=== PATIENT | female | born 1980 | race Two or more races ===

== ENCOUNTER 2021-07-08 08:51 | Emergency (ER) | payer OTHER, SELFPAY ==
--- NOTE | ~2021-07-08 | XR_ITS ---
EXAMINATION: XR KNEE, RIGHT CLINICAL INFORMATION: Trauma, pain COMPARISON: None TECHNIQUE: Four views of the right knee. FINDINGS: There is no fracture, dislocation, or visible suprapatellar effusion. Hoffa's fat pad appears normal in the deep infrapatellar recess is preserved. There is no joint narrowing or erosive change or chondrocalcinosis. Normal bony mineral density. No periostitis. XR/XR knee RT 4V IMPRESSION: Normal right knee.
[2021-07-08 09:03] VITALS: BP 117/90; PULSE 83; RESP 18; TEMP 36.1; O2SAT 97; BMI 39.5
--- NOTE | 2021-07-08 09:14 | ED.LOWEXIN ---
HPI - Extremity Injury (Lower) General Chief Complaint: Extremity Injury, Lower Stated Complaint: R LEG INJ Time Seen by Provider: 07/08/21 09:14 Source: patient Mode of arrival: ambulatory Limitations: no limitations History of Present Illness HPI Narrative: 40 y/o female presenting to the ER from home with right knee pain x1 week. She reports injuring her knee last Thursday when she was dancing. She jumped and heard a popping sound. She went to urgent care where she was diagnosed with a knee sprain and given crutches. She had some improvement with rest and NSAIDs but when she went back to work 4 days ago she reinjured the knee again and twisted it. Pain has been worse since then. No ankle or hip injury. She is able to walk on it but with a limp. She feels like there is swelling in the knee but no swelling is present. MD complaint: knee injury Onset (ago): week(s) (1) Injury: Right: knee Type of Injury: unknown Place: home Severity: moderate Severity scale (1-10): 6 Relieving factors: NSAID Exacerbating factors: weight bearing, movement and palpation Context: jumping Associated symptoms: snap/pop sensation and able to partially bear weight Other symptoms: none Treatments prior to arrival: NSAIDS Related Data Previous Rx's Medication Instructions Recorded ibuprofen 600 mg tablet 600 mg PO Q8H PRN #20 tab 07/08/21 Allergies Allergy/AdvReac Type Severity Reaction Status Date / Time No Known Allergies Allergy Verified 07/08/21 09:06 Review of Systems Constitutional: Constitutional: Denies chills and Denies fever(s) Eyes: Eyes: Reports no additional eye complaints Cardiovascular: Cardiovascular: Denies chest pain and Denies dyspnea Respiratory: Respiratory: Denies dyspnea Musculoskeletal: Musculoskeletal: Reports abnormal gait, Reports arthralgias, Denies joint swelling, Reports limited range of motion, Denies numbness and Reports stiffness Integumentary/Breasts: Skin/Breast: Denies swelling and Denies erythema Neurologic: Reports abnormal gait and Denies numbness Psychiatric: Psychiatric: Reports anxiety PMFSH Past Medical History Attestation statement: The following information was validated with the patient. Medical History (Updated 07/08/21 @ 10:07 by MONY Mckinnon) No known health problems Social History Social History Advance Directives: Yes Advance Directives Information Provided: Yes Advance Directives on File: No Patient : No Physical Exam Vital Signs: Vital Signs: Last Vital Signs Temp 97.0 F 07/08/21 09:03 Pulse 83 07/08/21 09:03 Resp 18 07/08/21 09:03 BP 117/90 H 07/08/21 09:03 Pulse Ox 97 07/08/21 09:03 Body Mass Index 39.5 Const: General: cooperative, healthy appearing, comfortable and no acute distress Nutritional Appearance: overweight Orientation/consciousness: patient oriented x3 Limitations: no limitations HENMT: Head: Yes normal to inspection, Yes normocephalic and Yes atraumatic Ears: hearing grossly normal bilaterally and external ears normal General nose exam: Normal external nose present Face and sinus: Yes normal facial exam and Yes face symmetric Mouth: Normal oral and palatal mucosa present, lip normal and tongue normal Eyes: General: appearance normal, both eyes and all related structures Neck: Neck: Yes normal visual inspection Chest: Chest palpation & inspection: normal inspection of the chest Resp: Effort & Inspection: normal respiratory effort and able to speak in complete sentences Skin: General skin exam: no rashes or lesions noted Neuro: General: patient oriented x3, tone normal and moves all extremities Gait exam (Neuro): Antalgic gait present Extrem: Right upper extremity: normal to inspection and full ROM Left upper extremity: normal to inspection and full ROM Right lower extremity: normal to inspection and knee Details: normal to inspection, tenderness Location: of the medial joint line and of the lateral joint line, abnormal ROM Details: pain with active ROM during Details: in flexion and knee ligament exam normal; Negative for no swelling, no deformity and no unusual warmth Left lower extremity: normal to inspection Course Course Course Narrative: 40 y/o female presenting with right knee pain s/p injury x2 in the last 1 week with popping sensation. Ambulating with a limp. No swelling on exam, she is tender along the medial and lateral joint lines. No joint laxity appreciated. XR is normal. Will refer to ortho for further evaluation of possible menicsus vs ligamentous injury. She c/o popping sensation. Encouraged to use crutches and stay off her knee, continue to rest, ice and take NSAIDS. Work note provided. She will f/u with Ortho. Discharge Plan Discharge Clinical Impression: Knee sprain Qualifiers: Encounter type: initial encounter Involved ligament of knee: unspecified ligament Laterality: right Qualified Code(s): S83.91XA - Sprain of unspecified site of right knee, initial encounter Patient Disposition: Home, Self-Care Instructions: Knee Sprain (ED), Crutch Instructions (ED) Additional Instructions: Your x-ray today was normal. Rest you knee and elevate your leg under pillows when possible. Recommend LESTER wrap or knee brace for support and compression. Use ice several times per day for the next 48 hours. You may bear weight as tolerated. If pain is too severe, use crutches until better. Take prescribed ibuprofen and/or Tylenol as needed for pain. Follow up with Orthopedics for further evaluation of possible ligament or meniscus injury. Follow up with your doctor as needed. Prescriptions: New ibuprofen 600 mg tablet 600 mg PO Q8H PRN (Reason: pain) Qty: 20 RF: 0 Referrals: Jesus Frias MD [Physician] - 2 days (right knee pain, possible meniscus or ligament tear) Stand Alone Forms: Work/School Release
== END 2021-07-08 10:39 | disposition home or self-care (01) ==
PROVIDERS: Emergency Provider Emergency Medicine
DX: S83.91XA Sprain of unspecified site of right knee, initial encounter (principal); M25.561 Pain in right knee; X58.XXXA Exposure to other specified factors, initial encounter; Y93.9 Activity, unspecified; Y92.9 Unspecified place or not applicable; Y99.9 Unspecified external cause status; Z79.899 Other long term (current) drug therapy
CPT/HCPCS: 73564; 99283

== ENCOUNTER → 2021-07-16 11:22 | Outpatient (BNVA) | payer OTHER, SELFPAY | PROVIDERS: Visit Provider Physician Assistant | DX: S83.91XA Sprain of unspecified site of right knee, initial encounter (principal) | CPT/HCPCS: 99202 ==

== ENCOUNTER 2022-01-12 15:18 | Emergency (ER) | payer OTHER, SELFPAY ==
[2022-01-12 16:06] VITALS: BP 129/78; PULSE 75; RESP 18; TEMP 36.8; O2SAT 96; BMI 41.9
== END 2022-01-12 17:29 | disposition left against medical advice (07) ==
PROVIDERS: Emergency Provider Emergency Medicine
DX: R25.2 Cramp and spasm (principal); N93.9 Abnormal uterine and vaginal bleeding, unspecified
CPT/HCPCS: 99282

== ENCOUNTER 2022-02-05 12:40 | Emergency (ER) | payer OTHER, SELFPAY ==
--- NOTE | 2022-02-05 | ECG_ITS ---
Test Reason : SWELLING Blood Pressure : / mmHG Vent. Rate : 073 BPM Atrial Rate : 073 BPM P-R Int : 158 ms QRS Dur : 092 ms QT Int : 374 ms P-R-T Axes : 035 032 021 degrees QTc Int : 412 ms Normal sinus rhythm Normal ECG No previous ECGs available Referred By: Jose Espana Electronically Signed By:FAYE FENG
--- NOTE | ~2022-02-05 | US_ITS ---
EXAMINATION: US VENOUS ULTRASOUND WITH DOPPLER LOWER EXTREMITY, BILATERAL CLINICAL INFORMATION: Leg swelling COMPARISON: Right knee x-ray June 2021 TECHNIQUE: Ultrasound of the deep veins is performed from the hip to the calf with compression sonography and color and pulse Doppler assessment. Spectral analysis with color-flow imaging is performed. FINDINGS: RIGHT: There is normal venous compression and respiratory variation and augmented flow. The visualized common femoral vein, superficial femoral vein, profunda femoral vein, popliteal vein, and the posterior tibial veins no evidence of deep venous thrombosis. The right peroneal veins are not well visualized. There is no significant popliteal fossa cyst. There is a fluid collection superior to the patella probably representing a suprapatellar joint effusion. LEFT: There is normal venous compression and respiratory variation and augmented flow. The visualized common femoral vein, superficial femoral vein, profunda femoral vein, popliteal vein, and the trifurcation region shows no evidence of deep venous thrombosis. There is no significant popliteal fossa cyst. US/US venous duplex LE BI IMPRESSION: No DVT demonstrated in the bilateral lower extremity. The right peroneal veins in the calf are not well visualized. Right suprapatellar fluid collection probably representing a joint effusion.
[2022-02-05 12:58] VITALS: BP 140/77; PULSE 67; RESP 18; TEMP 36.4; O2SAT 100; BMI 42.0
[2022-02-05 13:17] LABS: MANUAL DIFF FLAG NO
[2022-02-05 13:28] LABS: INTERNATIONAL NORM RATIO 1.1 (0.9-1.1); Prothrombin Time 12.4 SEC (9.9-13.0)
[2022-02-05 13:29] LABS: Basophils Percent Auto 0.4 % (0-2); Eosinophils Absolute Auto 0.3 X10*3/uL (0.0-0.4); Eosinophils Percent Auto 3.2 % (0-4); Hematocrit 37.1 % (37.0-47.0); Hemoglobin 11.5 g/dl (12.0-16.0); Imm Gran Abs Auto 0.04 X10*3/uL (0.00-0.03); Imm Gran Pct Auto 0.4 % (0.0-0.4); Lymphocytes Absolute Auto 1.7 X10*3/uL (1.2-4.9); Lymphocytes Percent Auto 17.1 % (20-40); Mean Corpuscular Hemoglobin 26.6 pg (27.0-33.0); Mean Corpuscular Volume 85.7 fL (80.0-98.0); Mean Platelet Volume 10.6 fL (9.4-12.3); Monocytes Absolute Auto 0.5 X10*3/uL (0.1-1.2); Monocytes Percent Auto 5.5 % (2-11); Neutrophils Absolute Auto 7.2 x10*3/uL (2.0-8.3); Neutrophils Percent Auto 73.4 % (45-73); Platelet Count 328 X10*3/uL (160-400); Red Blood Count 4.33 X10*6/uL (4.20-5.50); Red Cell Distribution Width 16.1 % (11.0-16.0); White Blood Count 9.8 X10*3/uL (4.8-10.8)
[2022-02-05 13:42] LABS: Alanine Aminotransferase 16 U/L (0-31); Albumin Level 3.9 g/dL (3.5-5.0); Alkaline Phosphatase 80 U/L (39-117); Anion Gap 8 (12-20); Aspartate Amino Transferase 14 U/L (5-31); Bilirubin Direct 0.3 mg/dL (0.0-0.5); Bilirubin Total 0.8 mg/dL (0.0-1.0); Blood Urea Nitrogen 14 mg/dL (9-16); Calcium 8.9 mg/dL (8.4-10.2); Carbon Dioxide 27 mmol/L (22-29); Chloride 106 mmol/L (96-108); Creatinine Clr Calc Pharmacy 122.5; Estimated Glomerular Filt Rate > 60; Glucose Random 94 mg/dL (60-115); Potassium 4.3 mmol/L (3.3-5.1); Sodium 137 mmol/L (135-145); Total Protein 7.3 g/dL (6.5-8.0)
[2022-02-05 13:45] LABS: B Type Natriuretic Peptide 11 pg/mL (<100); Troponin-I High Sensitivity < 3.5 ng/L (<3.5-17.0)
--- NOTE | 2022-02-05 15:27 | ED.GENADULT ---
HPI - General Adult General Chief complaint: Extremity Problem Stated complaint: Bloodclot? Time Seen by Provider: 02/05/22 12:57 Source: patient Mode of arrival: ambulatory Limitations: no limitations History of Present Illness HPI narrative: Patient is a 41 year old female presenting to the emergency department today with right lower leg pain. Patient states that a few days ago, she had bilateral lower leg swelling but the left leg resolved on it's own. Patient states that the right leg is still swollen and somewhat sore. Patient states that she attempted to be seen at an urgent care when they sent her here to rule out a bloodclot. Patient denies any dizziness, lightheadedness, abdominal pain, nausea, vomiting, fever, chills, blurry vision, double vision, loss of vision, chest pain, difficulty breathing, shortness of breath, back pain, night sweats, pain with urination, increased urinary frequency, increased urinary urgency, blood in her urine or stool, syncope or a near syncopal episode, recent trauma or falls, bowel incontinence, bladder incontinence, bowel retention, bladder retention, or any other complaints at this time. Onset (ago): day(s) Location: lower extremity Radiation: non-radiation Severity: mild Severity scale (1-10): 2 Quality: dull Pain Consistency: intermittent Relieving factors: none Exacerbating factors: none Associated symptoms: denies other symptoms Treatments prior to arrival: none Related Data Previous Rx's Medication Instructions Recorded ibuprofen 600 mg tablet 600 mg PO Q8H PRN #20 tab 07/08/21 Allergies Allergy/AdvReac Type Severity Reaction Status Date / Time No Known Allergies Allergy Verified 07/08/21 09:06 Review of Systems Constitutional: Constitutional: Reports no additional constitutional complaints, Denies chills, Denies fever(s) and Denies night sweats Eyes: Eyes: Reports no additional eye complaints, Denies blurry vision, Denies change in vision, Denies diplopia, Denies eye discharge, Denies loss of vision and Denies eye pain ENT: Denies dizziness Cardiovascular: Cardiovascular: Reports no additional cardiovascular complaints, Denies chest pain, Denies lightheadedness, Denies Loss of Consciousness and Denies dyspnea Respiratory: Respiratory: Reports no additional respiratory complaints and Denies dyspnea Gastrointestinal: Gastrointestinal: Reports no additional gastrointestinal complaints, Denies abdominal pain, Denies melena, Denies hematochezia, Denies change in bowel habits and Denies change in stool character Genitourinary: Genitourinary: Denies hematuria, Denies urinary frequency, Denies dysuria, Denies urinary incontinence, Denies urinary hesitancy and Denies urinary urgency Musculoskeletal: Musculoskeletal: Reports no additional musculoskeletal complaints, Denies numbness and Denies tingling Comments: right lower leg swelling and intermittent soreness Neurologic: Denies dizziness, Denies loss of vision, Denies numbness and Denies tingling Psychiatric: Psychiatric: Reports no additional psychiatric complaints Endocrine: Endocrine: Reports no additional endocrine complaints Hematologic/Lymphatic: Hematologic/Lymphatic: Reports no additional hematologic/lymphatic complaints Allergic/Immunologic: Allergic/Immunologic: Reports no additional allergic/immunologic complaints [facility] Past Medical History Attestation statement: The following information was validated with the patient. 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 Physical Exam ED Vital Signs: Vital Signs - 24 hr 02/05/22 12:58 Temperature 97.6 F Pulse Rate 67 Respiratory Rate 18 Blood Pressure 140/77 H Pulse Oximetry 100 BMI result Body Mass Index 42.0 Const General: cooperative, no acute distress, alert and awake Nutritional Appearance: well nourished Orientation/consciousness: patient oriented x3 Limitations: no limitations HENMT Head: Yes normal to inspection and Yes atraumatic Ears: hearing grossly normal bilaterally and external ears normal General nose exam: Normal external nose present, no nasal discharge noted and no epistaxis Face and sinus: Yes normal facial exam, No abrasion and No laceration Mouth: Normal oral and palatal mucosa present, no drooling and no muffled voice Eyes General: appearance normal, both eyes and all related structures Periorbital: periorbital findings normal Eyelids: Yes eyelids normal Conjunctivae: conjunctivae normal Pupils: Equal, round and reactive pupils present EOM: EOMs intact bilaterally Neck Neck: Yes normal visual inspection, Yes full ROM and Yes no lymphadenopathy Chest Chest palpation & inspection: normal inspection of the chest Resp Effort & Inspection: normal respiratory effort and able to speak in complete sentences Auscultation: clear to auscultation bilaterally Cardio Rate: regular rate Rhythm: regular rhythm GI Inspection: Yes normal to inspection Neuro General: patient oriented x3 and moves all extremities Cranial nerves: Yes Equal, round and reactive pupils present Cognition (Neuro): normal cognition Motor exam (neuro): 5/5 motor strength present throughout Sensory Exam: Normal double simultaneous stimulation for sensation Coordination: [id number] test normal Extrem General: Yes normal to inspection, Yes full ROM and Yes capillary refill normal Psych Appearance: grossly normal Mental Status: mental status grossly normal Affect: normal affect Attitude: cooperative Thought process: Normal thought process present Thought content: Normal thought content present Insight: Good insight present (Psych) Medical Decision Making MDM Narrative Medical decision making narrative: Patient is a 41 year old female presenting to the emergency department today with right lower leg swelling and pain. Patient's physical exam was unremarkable. Patient's blood work was unremarkable. Patient's doppler US of the right lower leg showed no acute process. I explained my physical exam findings as well as all test results to the patient. I answered all questions asked by the patient. I stressed the importance of the patient taking her medication as prescribed. I stressed the importance of the patient following up with her primary care provider. I stressed the importance of the patient returning to the emergency department immediately if her symptoms were to worsen or if she were to develop any dizziness, shortness of breath, difficulty breathing, chest pain, blurry vision, loss of vision, nausea, vomiting, abdominal pain, fever, chills, back pain, or any other complaints. Patient verbalized agreement and understanding with this treatment plan and discharge. Differential Diagnosis Differential Diagnosis: DVT, right lower leg pain Medical Records Medical records reviewed: Yes I reviewed the patient's medical records. Lab Data Result diagrams: 02/05/22 13:07 02/05/22 13:07 Labs: Lab Results 02/05/22 02/05/22 02/05/22 Range/Units 13:07 13:07 13:07 WBC 9.8 (4.8-10.8) X10*3/uL RBC 4.33 (4.20-5.50) X10*6/uL Hgb 11.5 L (12.0-16.0) g/dl Hct 37.1 (37.0-47.0) % MCV 85.7 (80.0-98.0) fL MCH 26.6 L (27.0-33.0) pg MCHC 31.0 (31.0-35.0) g/dl RDW 16.1 H (11.0-16.0) % Plt Count 328 (160-400) X10*3/uL MPV 10.6 (9.4-12.3) fL Immature Gran % (Auto) 0.4 (0.0-0.4) % Neut % (Auto) 73.4 H (45-73) % Lymph % (Auto) 17.1 L (20-40) % [place] % (Auto) 5.5 (2-11) % Eos % (Auto) 3.2 (0-4) % Baso % (Auto) 0.4 (0-2) % Lymph # (Auto) 1.7 (1.2-4.9) X10*3/uL [place] # (Auto) 0.5 (0.1-1.2) X10*3/uL Eos # (Auto) 0.3 (0.0-0.4) X10*3/uL Baso # (Auto) 0.0 (0.0-0.2) X10*3/uL Abs Immat Gran (auto) 0.04 H (0.00-0.03) X10*3/uL Absolute Neuts (auto) 7.2 (2.0-8.3) x10*3/uL Absolute Nucleated RBC 0.000 (0.0-0.012) X10*3/uL Nucleated RBC % (auto) 0.0 (0.0-0.2) /100WBC PT 12.4 (9.9-13.0) SEC INR 1.1 (0.9-1.1) Sodium 137 (135-145) mmol/L Potassium 4.3 (3.3-5.1) mmol/L Chloride 106 (96-108) mmol/L Carbon Dioxide 27 (22-29) mmol/L Anion Gap 8 L (12-20) BUN 14 (9-16) mg/dL Creatinine 0.79 (0.5-1.4) mg/dL Estim Creat Clear Calc 122.5 Estimated GFR > 60 Random Glucose 94 (60-115) mg/dL Calcium 8.9 (8.4-10.2) mg/dL Total Bilirubin 0.8 (0.0-1.0) mg/dL Direct Bilirubin 0.3 (0.0-0.5) mg/dL AST 14 (5-31) U/L ALT 16 (0-31) U/L Alkaline Phosphatase 80 (39-117) U/L Troponin I High Sens (<3.5-17.0) ng/L B-Natriuretic Peptide (<100) pg/mL Total Protein 7.3 (6.5-8.0) g/dL Albumin 3.9 (3.5-5.0) g/dL 02/05/22 Range/Units 13:07 WBC (4.8-10.8) X10*3/uL RBC (4.20-5.50) X10*6/uL Hgb (12.0-16.0) g/dl Hct (37.0-47.0) % MCV (80.0-98.0) fL MCH (27.0-33.0) pg MCHC (31.0-35.0) g/dl RDW (11.0-16.0) % Plt Count (160-400) X10*3/uL MPV (9.4-12.3) fL Immature Gran % (Auto) (0.0-0.4) % Neut % (Auto) (45-73) % Lymph % (Auto) (20-40) % [place] % (Auto) (2-11) % Eos % (Auto) (0-4) % Baso % (Auto) (0-2) % Lymph # (Auto) (1.2-4.9) X10*3/uL [place] # (Auto) (0.1-1.2) X10*3/uL Eos # (Auto) (0.0-0.4) X10*3/uL Baso # (Auto) (0.0-0.2) X10*3/uL Abs Immat Gran (auto) (0.00-0.03) X10*3/uL Absolute Neuts (auto) (2.0-8.3) x10*3/uL Absolute Nucleated RBC (0.0-0.012) X10*3/uL Nucleated RBC % (auto) (0.0-0.2) /100WBC PT (9.9-13.0) SEC INR (0.9-1.1) Sodium (135-145) mmol/L Potassium (3.3-5.1) mmol/L Chloride (96-108) mmol/L Carbon Dioxide (22-29) mmol/L Anion Gap (12-20) BUN (9-16) mg/dL Creatinine (0.5-1.4) mg/dL Estim Creat Clear Calc Estimated GFR Random Glucose (60-115) mg/dL Calcium (8.4-10.2) mg/dL Total Bilirubin (0.0-1.0) mg/dL Direct Bilirubin (0.0-0.5) mg/dL AST (5-31) U/L ALT (0-31) U/L Alkaline Phosphatase (39-117) U/L Troponin I High Sens < 3.5 (<3.5-17.0) ng/L B-Natriuretic Peptide 11 (<100) pg/mL Total Protein (6.5-8.0) g/dL Albumin (3.5-5.0) g/dL Imaging Data Venous US: Attestation: I personally reviewed and interpreted this imaging study as follows: My impression: No acute process. Radiologist's impression: EXAMINATION:? US VENOUS ULTRASOUND WITH DOPPLER LOWER EXTREMITY, BILATERAL CLINICAL INFORMATION:? Leg swelling COMPARISON:? Right knee x-ray June 2021 TECHNIQUE: Ultrasound of the deep veins is performed from the hip to the calf with compression sonography and color and pulse Doppler assessment. Spectral analysis with color-flow imaging is performed. FINDINGS: RIGHT: There is normal venous compression and respiratory variation and augmented flow. The visualized common femoral vein, superficial femoral vein, profunda femoral vein, popliteal vein, and the posterior tibial veins no evidence of deep venous thrombosis.? The right peroneal veins are not well visualized. There is no significant popliteal fossa cyst. There is a fluid collection superior to the patella probably representing a suprapatellar joint effusion. LEFT: There is normal venous compression and respiratory variation and augmented flow. The visualized common femoral vein, superficial femoral vein, profunda femoral vein, popliteal vein, and the trifurcation region shows no evidence of deep venous thrombosis. ? There is no significant popliteal fossa cyst. US/US venous duplex LE BI IMPRESSION: No DVT demonstrated in the bilateral lower extremity. The right peroneal veins in the calf are not well visualized. Right suprapatellar fluid collection probably representing a joint effusion. Dictated By: Ly Bird MD Signed By: Electronically signed by Ly Bird MD 02/05/22 4070 Discharge Plan Discharge Clinical Impression: Acute leg pain Patient Disposition: Home, Self-Care Instructions: Knee Pain (ED) Additional Instructions: Follow up with your primary care provider. Return to the emergency department immediately if your symptoms worsen or if you develop any dizziness, shortness of breath, difficulty breathing, chest pain, blurry vision, loss of vision, nausea, vomiting, abdominal pain, fever, chills, back pain, or any other complaints. Prescriptions: No Action ibuprofen 600 mg tablet 600 mg PO Q8H PRN (Reason: pain) Qty: 20 0RF Referrals: Jasmyne Greene MD [Primary Care Provider] - 2 days Stand Alone Forms: Work/School Release Interventions: ED Discharge Assessment Last Done: 02/05/22 16:02 Discharge Date/Time: 02/05/22 16:04 Print Language: Lao
[2022-02-05] MEDS: Ketorolac Tromethamine 15 MG/ML VIAL IM (15:58)
== END 2022-02-05 16:04 | disposition home or self-care (01) ==
PROVIDERS: Physician Assistant; Emergency Provider Emergency Medicine; PCP Internal Medicine
DX: M79.604 Pain in right leg (principal); M79.89 Other specified soft tissue disorders; Z86.718 Personal history of other venous thrombosis and embolism
CPT/HCPCS: 36415; 80053; 82248; 83880; 84484; 85025; 85610; 93005; 93970; 96372; 99284; J1885

== ENCOUNTER → 2022-06-16 10:02 | Outpatient (BNVA) | payer OTHER, SELFPAY | PROVIDERS: PCP Internal Medicine; Visit Provider Physician Assistant Surgical | DX: E66.01 Morbid (severe) obesity due to excess calories (principal); Z68.41 Body mass index [BMI] 40.0-44.9, adult | CPT/HCPCS: 99202; 99212 ==

== ENCOUNTER 2022-08-04 08:08 | Outpatient (REF) | payer OTHER, SELFPAY ==
[2022-08-04 09:05] LABS: MANUAL DIFF FLAG NO
[2022-08-04 09:11] LABS: Basophils Absolute Auto 0.1 X10*3/uL (0.0-0.2); Basophils Percent Auto 0.7 % (0-2); Eosinophils Absolute Auto 0.2 X10*3/uL (0.0-0.4); Hematocrit 35.9 % (37.0-47.0); Hemoglobin 11.4 g/dl (12.0-16.0); Imm Gran Abs Auto 0.04 X10*3/uL (0.00-0.03); Imm Gran Pct Auto 0.4 % (0.0-0.4); Lymphocytes Absolute Auto 1.7 X10*3/uL (1.2-4.9); Lymphocytes Percent Auto 18.9 % (20-40); Mean Corpuscular HGB Conc 31.8 g/dl (31.0-35.0); Mean Corpuscular Hemoglobin 27.3 pg (27.0-33.0); Mean Corpuscular Volume 85.9 fL (80.0-98.0); Mean Platelet Volume 10.7 fL (9.4-12.3); Monocytes Absolute Auto 0.6 X10*3/uL (0.1-1.2); Monocytes Percent Auto 6.1 % (2-11); Neutrophils Absolute Auto 6.4 x10*3/uL (2.0-8.3); Neutrophils Percent Auto 71.9 % (45-73); Platelet Count 278 X10*3/uL (160-400); Red Blood Count 4.18 X10*6/uL (4.20-5.50); Red Cell Distribution Width 16.2 % (11.0-16.0)
[2022-08-04 09:19] LABS: Estimated Average Glucose 105 mg/dL; Hemoglobin A1c % 5.3 %
[2022-08-04 09:52] LABS: Alanine Aminotransferase 13 U/L (0-31); Albumin Level 3.9 g/dL (3.5-5.0); Alkaline Phosphatase 74 U/L (39-117); Anion Gap 14 (12-20); Aspartate Amino Transferase 12 U/L (5-31); Bilirubin Total 1.1 mg/dL (0.0-1.0); Blood Urea Nitrogen 12 mg/dL (9-16); C Reactive Protein 0.85 mg/dL (< or = 0.50); Calcium 9.2 mg/dL (8.4-10.2); Carbon Dioxide 25 mmol/L (22-29); Chloride 106 mmol/L (96-108); Cholesterol 119 mg/dL; Estimated Glomerular Filt Rate > 60; Glucose Random 101 mg/dL (60-115); HDL Cholesterol 32 mg/dL; Iron 59 mcg/dL (30-160); LDL Cholesterol Calculated 74 mg/dl; Percent Iron Saturation 16 % (15-50); Potassium 4.1 mmol/L (3.3-5.1); Sodium 141 mmol/L (135-145); Total Iron Binding Capacity 377 mcg/dL (228-428); Total Protein 6.9 g/dL (6.5-8.0); Triglycerides 65 mg/dL; Unsaturated Iron Binding 318 ug/dL
[2022-08-04 10:14] LABS: Ferritin 25 ng/mL (10-250); Insulin 14 uU/mL (2-29); Vitamin D 25-OH Total 15.7 ng/mL (>30)
[2022-08-04 11:12] LABS: Vitamin B12 322 pg/mL (200-900)
[2022-08-05 11:02] LABS: PTHI 69 pg/mL (16-77)
[2022-08-06 14:55] LABS: H Pylori Breath Test Negative (Negative)
[2022-08-08 01:47] LABS: Zinc 63 mcg/dL (60-130)
[2022-08-08 10:26] LABS: Vitamin A 32 mcg/dL (38-98)
[2022-08-09 13:11] LABS: Vitamin B1 9 nmol/L (8-30)
== END 2022-08-04 08:09 | disposition home or self-care (01) ==
LOC: HO.LAB 08:08
PROVIDERS: Visit Provider Physician Assistant Surgical
DX: Z01.818 Encounter for other preprocedural examination (principal); E66.01 Morbid (severe) obesity due to excess calories
CPT/HCPCS: 36415; 80053; 80061; 82306; 82607; 82728; 82746; 83013; 83036; 83525; 83540; 83970; 84425; 84443; 84590; 84630; 85025; 86140; 99211

== ENCOUNTER → 2022-08-08 15:00 | Outpatient (BNVA) | payer OTHER, SELFPAY | PROVIDERS: Visit Provider Physician Assistant Surgical | DX: E66.01 Morbid (severe) obesity due to excess calories (principal); Z68.41 Body mass index [BMI] 40.0-44.9, adult | CPT/HCPCS: 99212 ==

== ENCOUNTER 2022-08-14 12:06 | Outpatient (REF) | payer OTHER, SELFPAY | END 2022-08-14 12:07 | disposition home or self-care (01) | LOC: HO.US 12:06 | PROVIDERS: Visit Provider Physician Assistant Surgical | DX: Z13.89 Encounter for screening for other disorder (principal) ==

== ENCOUNTER 2024-10-04 06:43 | Day surgery (SDC) | payer OTHER, SELFPAY ==
[2024-10-04] VITALS (9 sets, daily range): BP systolic 123–137; BP diastolic 68–85; PULSE 69–83; RESP 14–20; TEMP 36.1–37; O2SAT 93–97; BMI 44.5
--- NOTE | ~2024-10-04 | CT_ITS ---
EXAMINATION: CT ABDOMEN AND PELVIS WITHOUT CONTRAST CLINICAL INFORMATION: Left flank pain. COMPARISON: None currently available for technical reasons. TECHNIQUE: Multidetector volumetric imaging was performed from the superior aspect of the liver through the pubic symphysis. Sagittal and coronal reformatted images were obtained on the technologist's workstation. This CT examination was performed using dose optimization techniques as appropriate, variously including the following: *Automated exposure control *Adjustment of mA and/or kV according to patient size (this includes techniques or standardized protocols for targeted exams where dose is matched to indication/reason for exam; i.e. extremities or head) *Use of iterative reconstruction technique DLP: 1143 mGy-cm FINDINGS: LUNG BASES: Left basilar airspace disease associated with large hiatus hernia, not further characterized. No pleural effusion. Heart upper normal in size. No pericardial effusion. LIVER, GALLBLADDER, AND BILIARY TREE: The liver appears unremarkable in size, shape, and attenuation. No focal hepatic lesion or biliary ductal dilatation is appreciated. Borderline mildly distended gallbladder measuring 4.3 cm in diameter. No radiopaque gallstone identified. No evidence of gallbladder wall thickening or pericholecystic inflammatory change. PANCREAS: Unremarkable SPLEEN: Unremarkable ADRENAL GLANDS: Unremarkable KIDNEYS AND URETERS: 0.5 cm left UVJ stone with associated moderate left hydronephrosis and hydroureter to this level. Associated perinephric and periureteral stranding. Multiple, 0.3 cm or less, nonobstructing right renal collecting system stones. No evidence of hydronephrosis or hydroureter on the right. The kidneys appear unremarkable in size, shape, and attenuation. BLADDER: Poorly distended, therefore suboptimally evaluated. Grossly unremarkable. GASTROINTESTINAL TRACT/ABDOMINAL WALL: Large hiatus hernia containing almost all the stomach and a portion of the pancreas. Suspect anterior abdominal wall surgical mesh. Approximately 3.8 cm mid lower anterior abdominal wall hernia containing fat and a small amount of fluid. Approximately 4 cm left groin hernia containing indurated fat, possibly a femoral hernia. Small bowel and colon appear unremarkable. No diverticulosis. Normal-appearing distal ileum and vermiform appendix. LYMPH NODES: No evidence of adenopathy by size criteria. VASCULAR: Unremarkable PELVIC VISCERA: Status post hysterectomy. OSSEOUS STRUCTURES: Unremarkable CT/CT abdomen pelvis wo IV con IMPRESSION: 0.5 cm left UVJ stone with associated moderate left hydronephrosis and hydroureter to this level. Associated perinephric and periureteral stranding. Large hiatus hernia containing almost all the stomach and a portion of the pancreas. Suspect anterior abdominal wall surgical mesh. Approximately 3.8 cm mid lower anterior abdominal wall hernia containing fat and a small amount of fluid. Approximately 4 cm left groin hernia containing indurated fat, possibly a femoral hernia. Additional findings as above. Electronically signed by: Adam Bales MD 10/04/2024 11:46 AM SACHIN
[2024-10-04 07:18] LABS: MANUAL DIFF FLAG NO
[2024-10-04 07:22] LABS: Basophils Absolute Auto 0.1 X10*3/uL (0.0-0.2); Basophils Percent Auto 0.5 % (0-2); Eosinophils Absolute Auto 0.2 X10*3/uL (0.0-0.4); Eosinophils Percent Auto 1.7 % (0-4); Hematocrit 39.6 % (37.0-47.0); Hemoglobin 12.6 g/dl (12.0-16.0); Imm Gran Abs Auto 0.08 X10*3/uL (0.00-0.03); Imm Gran Pct Auto 0.8 % (0.0-0.4); Lymphocytes Percent Auto 19.5 % (20-40); Mean Corpuscular HGB Conc 31.8 g/dl (31.0-35.0); Mean Corpuscular Hemoglobin 26.1 pg (27.0-33.0); Mean Corpuscular Volume 82.2 fL (80.0-98.0); Mean Platelet Volume 10.6 fL (9.4-12.3); Monocytes Absolute Auto 0.7 X10*3/uL (0.1-1.2); Monocytes Percent Auto 6.7 % (2-11); Neutrophils Absolute Auto 7.3 x10*3/uL (2.0-8.3); Neutrophils Percent Auto 70.8 % (45-73); Platelet Count 331 X10*3/uL (160-400); Red Blood Count 4.82 X10*6/uL (4.20-5.50); Red Cell Distribution Width 17.7 % (11.0-16.0); White Blood Count 10.3 X10*3/uL (4.8-10.8)
[2024-10-04 07:22] LABS: Appearance Urine Cloudy; Color Urine Yellow; Glucose Urine UA Negative (Negative); Leukocyte Esterase Urine Negative (Negative); Nitrite Urine Negative (Negative); Specific Gravity - Urine 1.025 (1.005-1.025); Urine Blood Negative (Negative); Urine Ketones Negative (Negative); Urine Protein Trace mg/dL (Neg-Trace)
[2024-10-04 07:25] LABS: Bacteria Urine 3+ (None Seen); Hyaline Casts Urine 0-2 /LPF (0-2); RBC Urine 0-2 /HPF (0-2); Squamous Epithelial Cell Urine >20 /HPF (0-2); WBC Urine 0-5 /HPF (0-5)
[2024-10-04 07:35] LABS: Alanine Aminotransferase 19 U/L (0-31); Alkaline Phosphatase 87 U/L (39-117); Anion Gap 15 (12-20); Aspartate Amino Transferase 21 U/L (5-31); Bilirubin Total 0.9 mg/dL (0.0-1.0); Blood Urea Nitrogen 14 mg/dL (9-16); Calcium 9.3 mg/dL (8.4-10.2); Carbon Dioxide 23 mmol/L (22-29); Chloride 106 mmol/L (96-108); Estimated Glomerular Filt Rate > 60; Glucose Random 113 mg/dL (60-115); Lipase 31 U/L (8-78); Potassium 3.8 mmol/L (3.3-5.1); Sodium 140 mmol/L (135-145); Total Protein 7.6 g/dL (6.5-8.0)
--- NOTE | 2024-10-04 08:43 | ED_ITS ---
HPI - Abdominal Pain General Chief Complaint: Abdominal Pain Stated Complaint: L flank pain Time Seen by Provider: 10/04/24 08:42 Source: patient and RN notes reviewed Mode of arrival: ambulatory Limitations: no limitations History of Present Illness ED Provider: Latanya Scott PA-C HPI narrative: This is a 43-year-old female, with a history of total hysterectomy with left ovarian removal in June and multiple hernia repair at [facility], who presents emergency department with complaints of left sided flank pain which started at 4:00 a.m. this morning. Patient states that she woke up in the middle of the night to urinate, and states that after urination she developed this severe left-sided flank pain. She states that the pain has been coming in waves, states that it waxes and wanes in severity. Patient denies history of similar symptoms in the past. She denies any dysuria, hematuria, urinary frequency or urgency. Patient denies any fevers, chills, chest pain, shortness of breath, abdominal pain, nausea, vomiting. She does report that over the last 2 weeks she has had diarrhea. No bloody or black stool. No vaginal discharge or bleeding. Denies any other complaints or concerns at this time. MD elicited complaint: flank pain Location: L flank Severity: moderate Quality: cramping and aching Radiation: none Migration to: no migration Exacerbating factors: nothing and movement Relieving factors: rest Associated symptoms: denies other symptoms Related Data Home Medications ?Medication ?Instructions ?Recorded ?Confirmed Pepcid 20 mg PO DAILY 10/04/24 10/04/24 Previous Rx's ?Medication ?Instructions ?Recorded ibuprofen 600 mg tablet 600 mg PO Q8H PRN pain #20 tabs 07/08/21 Allergies Allergy/AdvReac Type Severity Reaction Status Date / Time No Known Allergies Allergy Verified 10/04/24 14:21 Review of Systems Review of Systems Yes all other systems are reviewed and are negative Constitutional: Reports as per [facility] Past Medical History Attestation statement: The following information was validated with the patient. Medical History Hernia No known health problems Surgical History Hx of hernia repair Family History Family History Mother Asthma Fibromyalgia Father No problems noted. Son No problems noted. Daughter No problems noted. 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 Physical Exam ED Vital Signs: Vital Signs - 24 hr 10/04/24 06:52 10/04/24 12:48 Temperature 98.6 F 98.1 F Pulse Rate 80 83 Respiratory Rate 20 20 Blood Pressure 133/85 131/81 Pulse Oximetry 96 96 Oxygen Delivery Method Room Air Room Air BMI result Body Mass Index 44.5 Const General: cooperative, comfortable and no acute distress Orientation/consciousness: patient oriented x3 Limitations: no limitations HENMT Head: Yes normal to inspection, Yes normocephalic and Yes atraumatic Ears: hearing grossly normal bilaterally General nose exam: Normal external nose present Face and sinus: Yes normal facial exam Mouth: Normal oral and palatal mucosa present, oropharynx normal and moist mucous membranes Throat: Yes posterior oropharynx normal Eyes General: appearance normal, both eyes and all related structures Eyelids: Yes eyelids normal Conjunctivae: conjunctivae normal Sclerae: sclerae normal Pupils: Equal, round and reactive pupils present EOM: EOMs intact bilaterally Neck Neck: Yes normal visual inspection, Yes full ROM and Yes no lymphadenopathy Lymphatic: no lymphadenopathy noted Chest Chest palpation & inspection: normal inspection of the chest Resp Effort & Inspection: normal respiratory effort and able to speak in complete sentences Auscultation: clear to auscultation bilaterally, no crackles, no rales, no rhonchi and no wheezes Cardio Rate: regular rate Rhythm: regular rhythm Heart sounds: S1 normal heart sound present and S2 normal heart sound present GI Other: Abdomen is soft, nontender, nondistended. Inspection: Yes normal to inspection General: Yes no CVA tenderness Back/Spine/Pelvis Other: Patient with tenderness palpation along the left flank. Back: no CVA tenderness Skin General skin exam: no rashes or lesions noted Trauma: no lacerations or abrasions Wounds: no wounds Neuro General: patient oriented x3 and moves all extremities Cranial nerves: Yes Equal, round and reactive pupils present Extrem General: Yes normal to inspection Right upper extremity: normal to inspection Left upper extremity: normal to inspection Right lower extremity: normal to inspection Left lower extremity: normal to inspection Course Reevaluation(s) Reevaluation #1: CT scan still pending, patient reports that the Toradol did help with her pain however states that the pain is increasing again. Morphine 4 mg IV ordered. Time: 11:21 Reevaluation #2: CT scan returns, revealing a 0.5 cm left UVJ stone with associated moderate left hydronephrosis and hydroureter to this level. There is associated parents nephric and periureteral stranding. Also a large hiatus hernia containing almost all of the stomach and a portion of the pancreas. Suspect anterior abdominal wall surgical mesh approximately 3.8 cm mid lower anterior wall hernia containing fat and a small amount of fluid. Approximately 4 cm left groin hernia containing indurated fat possibly a femoral hernia. Discussed with Dr. Carey, hernias a chronic issue, does not need an intervention today. Dr. Winter made aware Time: 11:55 Reevaluation #3: Patient with intractable pain, discussed case with Dr. Winter, who will bring patient lithotripsy. Patient is agreeable for procedure. Patient brought to the OR Time: 14:18 Medical Decision Making Medical Decision Making [facility] Narrative: This is a 43-year-old female who presents emergency department for evaluation of left-sided flank pain which started this morning. On arrival, vital signs within normal limits. Patient has no CVA tenderness however she does have tenderness palpation along the left flank. Abdomen is soft and nontender. Differential diagnoses include shoots cystitis, obstructive uropathy, gastritis, gastroenteritis. Plan: Labs, UA, CT abdomen and pelvis Differential Diagnosis Differential Diagnoses: The differential diagnosis associated with the presentation includes See above Admission/Observation Consideration of admission/observation: Escalation of care including admission/observation considered Consult Healthcare Provider Management of the patient was discussed with: Package Line Relief Operator Dr. Winter, urology Lab Data [facility] Lab Attestation statement: I reviewed the patient's lab results. No leukocytosis, H&H within normal limits, chemistry with no evidence of PRISCILLA. Beta quant less than 2, urine 3+ bacteria. Likely contaminated. Does not appear to be infected. 10/04/24 07:11 10/04/24 07:11 Labs: Lab Results 10/04/24 10/04/24 Range/Units 07:11 07:15 WBC 10.3 (4.8-10.8) X10*3/uL RBC 4.82 (4.20-5.50) X10*6/uL Hgb 12.6 (12.0-16.0) g/dl Hct 39.6 (37.0-47.0) % MCV 82.2 (80.0-98.0) fL MCH 26.1 L (27.0-33.0) pg MCHC 31.8 (31.0-35.0) g/dl RDW 17.7 H (11.0-16.0) % Plt Count 331 (160-400) X10*3/uL MPV 10.6 (9.4-12.3) fL Immature Gran % (Auto) 0.8 H (0.0-0.4) % Neut % (Auto) 70.8 (45-73) % Lymph % (Auto) 19.5 L (20-40) % [place] % (Auto) 6.7 (2-11) % Eos % (Auto) 1.7 (0-4) % Baso % (Auto) 0.5 (0-2) % Lymph # (Auto) 2.0 (1.2-4.9) X10*3/uL [place] # (Auto) 0.7 (0.1-1.2) X10*3/uL Eos # (Auto) 0.2 (0.0-0.4) X10*3/uL Baso # (Auto) 0.1 (0.0-0.2) X10*3/uL Abs Immat Gran (auto) 0.08 H (0.00-0.03) X10*3/uL Absolute Neuts (auto) 7.3 (2.0-8.3) x10*3/uL Absolute Nucleated RBC 0.000 (0.0-0.012) X10*3/uL Nucleated RBC % (auto) 0.0 (0.0-0.2) /100WBC Sodium 140 (135-145) mmol/L Potassium 3.8 (3.3-5.1) mmol/L Chloride 106 (96-108) mmol/L Carbon Dioxide 23 (22-29) mmol/L Anion Gap 15 (12-20) BUN 14 (9-16) mg/dL Creatinine 0.99 (0.5-1.4) mg/dL Estim Creat Clear Calc 99.0 Estimated GFR > 60 Random Glucose 113 (60-115) mg/dL Calcium 9.3 (8.4-10.2) mg/dL Total Bilirubin 0.9 (0.0-1.0) mg/dL AST 21 (5-31) U/L ALT 19 (0-31) U/L Alkaline Phosphatase 87 (39-117) U/L Total Protein 7.6 (6.5-8.0) g/dL Albumin 4.0 (3.5-5.0) g/dL Lipase 31 (8-78) U/L Beta HCG, Quant < 2 mIU/mL Urine Color Yellow Urine Appearance Cloudy Urine pH 5.0 (5.0-9.0) Ur Specific [place] 1.025 (1.005-1.025) Urine Protein Trace (Neg-Trace) mg/dL Urine Glucose (UA) Negative (Negative) mg/dL Urine Ketones Negative (Negative) mg/dL Urine Blood Negative (Negative) Urine Nitrite Negative (Negative) Ur Leukocyte Esterase Negative (Negative) Urine RBC 0-2 (0-2) /HPF Urine WBC 0-5 (0-5) /HPF Ur Squamous Epith Cells >20 (0-2) /HPF Urine Bacteria 3+ (None Seen) Hyaline Casts 0-2 (0-2) /LPF Radiology Impression Discussion of test interpretation with radiology: I have reviewed the radiologist's reading. Radiologist Impression: CT/CT abdomen pelvis wo IV con IMPRESSION: 0.5 cm left UVJ stone with associated moderate left hydronephrosis and hydroureter to this level. Associated perinephric and periureteral stranding. Large hiatus hernia containing almost all the stomach and a portion of the pancreas. Suspect anterior abdominal wall surgical mesh. Approximately 3.8 cm mid lower anterior abdominal wall hernia containing fat and a small amount of fluid. Approximately 4 cm left groin hernia containing indurated fat, possibly a femoral hernia. Additional findings as above. Electronically signed by: Adam Bales MD 10/04/2024 11:46 AM [facility] [place] Dictated By: Adam Bales Medications Administered Discontinued Medications Generic Name Dose Route Start Last Admin Trade Name Freq PRN Reason Stop Dose Admin Ceftriaxone Sodium 1 gm 10/04/24 08:49 10/04/24 10:50 Ceftriaxone Sodium 1 Gm Vial IVPUSH 10/04/24 08:50 1 gm ONCE ONE Administration Hydromorphone HCl 0.5 mg 10/04/24 13:14 10/04/24 13:58 Hydromorphone Hcl 0.5 Mg/0.5 Ml Syringe IVPUSH 10/04/24 13:15 0.5 mg ONCE ONE Administration Protocol Sodium Chloride 1,000 mls @ 999 mls/hr 10/04/24 08:52 10/04/24 12:23 Ns IV 10/04/24 09:52 Infused .Q1H1M ONE Infusion Ketorolac Tromethamine 30 mg 10/04/24 08:49 10/04/24 09:10 Ketorolac Tromethamine 30 Mg/Ml Vial IVPUSH 10/04/24 08:50 30 mg ONCE ONE Administration Morphine Sulfate 4 mg 10/04/24 11:20 10/04/24 11:58 Morphine Sulfate 4 Mg/Ml Cartridge IVPUSH 10/04/24 11:21 4 mg ONCE ONE Administration Protocol Ondansetron HCl 4 mg 10/04/24 08:49 10/04/24 09:10 Ondansetron Hcl 4 Mg/2 Ml Vial IVPUSH 10/04/24 08:50 4 mg ONCE ONE Administration Prednisone 20 mg 10/04/24 13:14 10/04/24 14:10 Prednisone 20 Mg Tablet PO 10/04/24 13:15 Not Given ONCE ONE Tamsulosin HCl 0.4 mg 10/04/24 13:14 10/04/24 14:10 Tamsulosin Hcl 0.4 Mg Capsule PO 10/04/24 13:15 Not Given ONCE ONE Discharge Plan Discharge Clinical Impression: Urinary tract obstruction by kidney stone Patient Disposition: Admitted As Inpatient
[2024-10-04] MEDS: Ketorolac Tromethamine 30 MG/ML VIAL IVPUSH (09:10)
[2024-10-04] MEDS: ondansetron HCL 4 MG/2 ML VIAL IVPUSH (09:10)
[2024-10-04] MEDS: 0.9 % Sodium Chloride 1,000 ML 999 ML IV (09:10)
[2024-10-04 09:13] LABS: HCG Quantitative < 2 mIU/mL
[2024-10-04] MEDS: cefTRIAXone sodium 1 GM VIAL IVPUSH (10:50)
--- NOTE | 2024-10-04 10:50 | PC.NURSE ---
d/t pt difficult IV stick, ok'ed adminstration of abx without second bld cx being obtained.
--- NOTE | 2024-10-04 11:28 | MHC.EDTECH ---
Second set of cultures canceled per nurse Pierce.
[2024-10-04] MEDS: Morphine Sulfate 4 MG/ML CARTRIDGE IVPUSH (11:58)
[2024-10-04] MEDS: HYDROmorphone HCl 0.5 MG/0.5 ML SYRINGE IVPUSH (13:58)
--- NOTE | 2024-10-04 14:21 | PM.UROCN ---
History of Present Illness Consult details Consult date: 10/04/24 Narrative: 43-year-old female, with a history of total hysterectomy with left ovarian removal in June and multiple hernia repair at [facility], who presents emergency department with complaints of left sided flank pain which started at 4:00 a.m. this morning. Patient denies history of similar symptoms in the past. She denies any dysuria, hematuria, urinary frequency or urgency. Patient denies any fevers, chills, chest pain, shortness of breath, abdominal pain, nausea, vomiting. She does report that over the last 2 weeks she has had diarrhea. CTAP- left 5 mm UVJ stone. Review of Systems Review of Systems: Yes all other systems are reviewed and are negative Constitutional: Constitutional: Reports no additional constitutional complaints Eyes: Eyes: Reports no additional eye complaints ENT: Reports system reviewed and no additional complaints, except as documented Cardiovascular: Cardiovascular: Reports no additional cardiovascular complaints Respiratory: Respiratory: Reports no additional respiratory complaints Gastrointestinal: Gastrointestinal: Reports no additional gastrointestinal complaints Genitourinary: Genitourinary: Reports as per HPI Musculoskeletal: Musculoskeletal: Reports no additional musculoskeletal complaints Integumentary/Breasts: Skin/Breast: Reports system reviewed and no additional complaints, except as docu Neurologic: Reports system reviewed and no additional complaints, except as documented Psychiatric: Psychiatric: Reports no additional psychiatric complaints Endocrine: Endocrine: Reports no additional endocrine complaints Hematologic/Lymphatic: Hematologic/Lymphatic: Reports no additional hematologic/lymphatic complaints Allergic/Immunologic: Allergic/Immunologic: Reports no additional allergic/immunologic complaints PMFSH Past Medical History Medical History Hernia No known health problems Family History Family History Mother Asthma Fibromyalgia Father No problems noted. Son No problems noted. Daughter No problems noted. 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 Meds Allergies Allergy/AdvReac Type Severity Reaction Status Date / Time No Known Allergies Allergy Verified 10/04/24 14:21 Home Medications ?Medication ?Instructions ?Recorded ?Confirmed ?Last Taken ?Type Pepcid 20 mg PO DAILY 10/04/24 10/04/24 10/03/24 History Physical Exam Vital Signs: Vital Signs: Last Vital Signs Temp 98.1 F 10/04/24 12:48 Pulse 83 10/04/24 12:48 Resp 20 10/04/24 12:48 BP 131/81 10/04/24 12:48 Pulse Ox 96 10/04/24 12:48 O2 Del Method Room Air 10/04/24 12:48 BMI result Body Mass Index 44.5 : General: Yes CVA tenderness on the left Back/Spine/Pelvis: Back: CVA tenderness Results Labs 10/04/24 07:11 10/04/24 07:11 Labs: Abnormal lab results 10/04/24 Range/Units 07:11 MCH 26.1 L (27.0-33.0) pg RDW 17.7 H (11.0-16.0) % Immature Gran % (Auto) 0.8 H (0.0-0.4) % Lymph % (Auto) 19.5 L (20-40) % Abs Immat Gran (auto) 0.08 H (0.00-0.03) X10*3/uL Short CBC 10/04/24 Range/Units 07:11 WBC 10.3 (4.8-10.8) X10*3/uL Hgb 12.6 (12.0-16.0) g/dl Hct 39.6 (37.0-47.0) % Plt Count 331 (160-400) X10*3/uL BMP 10/04/24 07:11 Sodium 140 Potassium 3.8 Chloride 106 Carbon Dioxide 23 BUN 14 Creatinine 0.99 Calcium 9.3 Liver Function 10/04/24 Range/Units 07:11 Total Bilirubin 0.9 (0.0-1.0) mg/dL AST 21 (5-31) U/L ALT 19 (0-31) U/L Alkaline Phosphatase 87 (39-117) U/L Albumin 4.0 (3.5-5.0) g/dL Urine 10/04/24 Range/Units 07:15 Urine Color Yellow Urine Appearance Cloudy Urine pH 5.0 (5.0-9.0) Ur Specific [place] 1.025 (1.005-1.025) Urine Protein Trace (Neg-Trace) mg/dL Urine Glucose (UA) Negative (Negative) mg/dL All other labs normal. Imaging Additional studies: Date of Service: 10/04/24 CT ABDOMEN AND PELVIS WITHOUT CONTRAST CLINICAL INFORMATION: Left flank pain. COMPARISON: None currently available for technical reasons. TECHNIQUE: Multidetector volumetric imaging was performed from the superior aspect of the liver through the pubic symphysis. Sagittal and coronal reformatted images were obtained on the technologist's workstation. This CT examination was performed using dose optimization techniques as appropriate, variously including the following: *Automated exposure control *Adjustment of mA and/or kV according to patient size (this includes techniques or standardized protocols for targeted exams where dose is matched to indication/reason for exam; i.e. extremities or head) *Use of iterative reconstruction technique DLP: 1143 mGy-cm FINDINGS: LUNG BASES: Left basilar airspace disease associated with large hiatus hernia, not further characterized. No pleural effusion. Heart upper normal in size. No pericardial effusion. LIVER, GALLBLADDER, AND BILIARY TREE: The liver appears unremarkable in size, shape, and attenuation. No focal hepatic lesion or biliary ductal dilatation is appreciated. Borderline mildly distended gallbladder measuring 4.3 cm in diameter. No radiopaque gallstone identified. No evidence of gallbladder wall thickening or pericholecystic inflammatory change. PANCREAS: Unremarkable SPLEEN: Unremarkable ADRENAL GLANDS: Unremarkable KIDNEYS AND URETERS: 0.5 cm left UVJ stone with associated moderate left hydronephrosis and hydroureter to this level. Associated perinephric and periureteral stranding. Multiple, 0.3 cm or less, nonobstructing right renal collecting system stones. No evidence of hydronephrosis or hydroureter on the right. The kidneys appear unremarkable in size, shape, and attenuation. BLADDER: Poorly distended, therefore suboptimally evaluated. Grossly unremarkable. GASTROINTESTINAL TRACT/ABDOMINAL WALL: Large hiatus hernia containing almost all the stomach and a portion of the pancreas. Suspect anterior abdominal wall surgical mesh. Approximately 3.8 cm mid lower anterior abdominal wall hernia containing fat and a small amount of fluid. Approximately 4 cm left groin hernia containing indurated fat, possibly a femoral hernia. Small bowel and colon appear unremarkable. No diverticulosis. Normal-appearing distal ileum and vermiform appendix. LYMPH NODES: No evidence of adenopathy by size criteria. VASCULAR: Unremarkable PELVIC VISCERA: Status post hysterectomy. OSSEOUS STRUCTURES: Unremarkable IMPRESSION: 0.5 cm left UVJ stone with associated moderate left hydronephrosis and hydroureter to this level. Associated perinephric and periureteral stranding. Large hiatus hernia containing almost all the stomach and a portion of the pancreas. Suspect anterior abdominal wall surgical mesh. Approximately 3.8 cm mid lower anterior abdominal wall hernia containing fat and a small amount of fluid. Approximately 4 cm left groin hernia containing indurated fat, possibly a femoral hernia. Assessment and Plan (1) Urinary tract obstruction by kidney stone: Status: Acute (2) Morbid obesity: Status: Acute (3) Hydronephrosis, left: Status: Acute Plan Plan for Cystoscopy, left ureteroscopy, possible laser lithotripsy, possible ureteral stent. Risks discussed included but not limited to, possible need to repeat procedure if stone is not completely fragmented, Irritative voiding symptoms, bladder spasms, urgency, blood in urine. Procedures Date of Service Date of Service: 10/04/24
--- NOTE | 2024-10-04 14:35 | HO.ANESPROP2 ---
HPI - Anesthesia Eval Consult details Narrative: 43 yo F presenting for left cystoscopy PMFSH Active Problems Active Problems: All Active Problems Hydronephrosis, left (Acute) Urinary tract obstruction by kidney stone (Acute) Morbid obesity (Acute) Right knee sprain (Acute) Past Medical History Medical History Hernia No known health problems Family History Family History Mother Asthma Fibromyalgia Father No problems noted. Son No problems noted. Daughter No problems noted. 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 Meds Allergies Allergy/AdvReac Type Severity Reaction Status Date / Time No Known Allergies Allergy Verified 10/04/24 14:21 Active Medications: Current Medications Cefazolin Sodium/Dextrose (Ancef) 2 gm in 50 mls @ 100 mls/hr IV PREOP ONE Stop: 10/04/24 14:55 Home Medications ?Medication ?Instructions ?Recorded ?Confirmed ?Last Taken ?Type Pepcid 20 mg PO DAILY 10/04/24 10/04/24 10/03/24 History Exam Exam Date and Time: 10/04/24 1430 Height,Weight and Vital Signs: Height 5 ft 6 in Weight 125.2 kg Last Vital Signs Temp 98.0 F 10/04/24 14:26 Pulse 81 10/04/24 14:26 Resp 16 10/04/24 14:26 BP 128/68 10/04/24 14:26 Pulse Ox 97 10/04/24 14:26 O2 Del Method Room Air 10/04/24 14:26 Pertinent Lab Results Pertinent Lab Results: Laboratory Tests 10/04/24 10/04/24 07:11 07:15 WBC 10.3 RBC 4.82 Hgb 12.6 Hct 39.6 MCV 82.2 MCH 26.1 L MCHC 31.8 RDW 17.7 H Plt Count 331 MPV 10.6 Immature Gran % (Auto) 0.8 H Neut % (Auto) 70.8 Lymph % (Auto) 19.5 L [place] % (Auto) 6.7 Eos % (Auto) 1.7 Baso % (Auto) 0.5 Lymph # (Auto) 2.0 [place] # (Auto) 0.7 Eos # (Auto) 0.2 Baso # (Auto) 0.1 Abs Immat Gran (auto) 0.08 H Absolute Neuts (auto) 7.3 Absolute Nucleated RBC 0.000 Nucleated RBC % (auto) 0.0 Sodium 140 Potassium 3.8 Chloride 106 Carbon Dioxide 23 Anion Gap 15 BUN 14 Creatinine 0.99 Estim Creat Clear Calc 99.0 Estimated GFR > 60 Random Glucose 113 Calcium 9.3 Total Bilirubin 0.9 AST 21 ALT 19 Alkaline Phosphatase 87 Total Protein 7.6 Albumin 4.0 Lipase 31 Beta HCG, Quant < 2 Urine Color Yellow Urine Appearance Cloudy Urine pH 5.0 Ur Specific [place] 1.025 Urine Protein Trace Urine Glucose (UA) Negative Urine Ketones Negative Urine Blood Negative Urine Nitrite Negative Ur Leukocyte Esterase Negative Urine RBC 0-2 Urine WBC 0-5 Ur Squamous Epith Cells >20 Urine Bacteria 3+ Hyaline Casts 0-2 Airway Mallampati Class: III TM Dist: <=3cm Neck ROM: Full Loose/Missing/Broken Teeth: No (patient denies any loose or broken teeth) Heart: S1S2 Lungs: CTAB Assessment and Plan Assessment Anesthesia Assessment: Anesthesia Plan Discussed and Chart Reviewed Final Anesthetic Review Family History of Problems with Anesthesia: No History of Problems with Anesthesia: No NPO: Yes ASA Class: II Final Preanesthetic Review: No Changes in Pt Med Stat, Meds/Allgs Chart Reviewed, Consent Obtained/Reviewed and Anes Risks/Benef Reviewed Patient Risk: Low Procedure Risk: Low Anesthetic Plan Anesthetic Plan: GA and Agree w/ Assess. and Plan Disposition: Standard PACU
--- NOTE | 2024-10-04 14:38 | MHC.SHP ---
Pre-Procedural Eval Section A - 24 Hr Update-Section A only Date of Service: 10/04/24 The patient is an INPATIENT: No The patient has been examined within 24 hours of the surgical procedure. The History & Physical has been completed within 30 days and I have reviewed it.: Yes Section B - Complete if H&P > 30 days Chief Complaint: Abd pain, left ureteral stone Allergies: Allergies Allergy/AdvReac Type Severity Reaction Status Date / Time No Known Allergies Allergy Verified 10/04/24 14:21 Plan Diagnosis/Plan: Unchanged I have reviewed the history and physical and performed a pertinent physical examination on my patient. No changes have occurred unless specified. Plan for Cystoscopy, left ureteroscopy, possible laser lithotripsy, possible ureteral stent. Risks discussed included but not limited to, possible need to repeat procedure if stone is not completely fragmented, Irritative voiding symptoms, bladder spasms, urgency, blood in urine. Time Spent With Patient Time: Total time managing care of this patient today ____ minutes.
[2024-10-04] MEDS: Phenazopyridine HCL 200 MG TABLET PO (17:05)
[2024-10-14 20:28] LABS: Stone Source KIDNEY STONE
--- NOTE | 2024-10-15 09:35 | P.OP_ITS ---
Operative Note Operative Note Date of Service: 10/04/24 Narrative: PreOperative Diagnosis:?? Left ureteral stone, left hydronephrosis Post Operative Diagnosis:??Left ureteral stone, left hydronephrosis Procedure: - Cystoscopy, left retrograde, left ureteroscopy laser lithotripsy stent insertion, 6 Estonian by 26 cm Surgeon:?Dr Ludy Tucker Anesthesia:? General Procedure: After informed consent was verified the patient was brought to the operating placed on the OR table in supine position.? General Anesthesia was administered per protocol.? The patient was placed in lithotomy position, prepped and draped in the usual sterile fashion.? Safety pause time-out and side of surgery confirmed.? Antibiotics confirmed. 2% lidocaine jelly 10 mL was passed transurethrally. A 22 Estonian cystoscope was inserted transurethrally, The bladder was visualized.? Both ureteric orifices were in normal position. An open-ended ureteral catheter was passed into the left ureteral orifice and a retrograde examination was performed. There was a filling defect in the ureter and dilatation of the distal ureter and proximally. A guidewire was passed through the ureteral catheter into the kidney. A 2nd guidewire was then passed into the kidney to use as a safety. The cystoscope was removed, leaving both guidewires in place. One guidewire was used as the safety and was attached to the draping. The semi rigid ureteroscope was passed over one of the guidewires to the level of the stone in the distal ureter. One guidewire was then removed. Laser lithotripsy of the stone was done using the 365 fiber with a alternating pulsating and dusting setting. There was good fragmentation of the stone. The 0 degree basket was passed through the ureteroscope, stone fragment(s) removed and sent for analysis. The ureteroscope was removed. The cystoscope was passed over the safety guidewire. A?6 Estonian by 26 cm stent was placed into the ureter and renal pelvis under a combination of fluoroscopy and direct visualization. The bladder was emptied.? The rigid cystoscope was removed. ? The patient tolerated the procedure well and was brought to the recovery room in stable condition. Complications: None Drains: Ureteral stent as dictated above
== END 2024-10-04 17:48 | disposition home or self-care (01) ==
LOC: HO.ED 14:05 → HO.SSS 14:10
PROVIDERS: Physician Assistant Medical; Emergency Provider Emergency Medicine; Visit Provider Urology
PROC: (CPT 52356; principal; 2024-10-04 14:00)
DX: N13.2 Hydronephrosis with renal and ureteral calculous obstruction (principal); E66.01 Morbid (severe) obesity due to excess calories; Z68.41 Body mass index [BMI] 40.0-44.9, adult
CPT/HCPCS: 52356; 36415; 74176; 80053; 81001; 82365; 83690; 84702; 85025; 87040; 87086; 88300; 96361; 96374; 96375; 99285; C1726; C1758; C2617; J0330; J0690; J0696; J1100; J1171; J1885; J2250; J2270; J2371; J2405; J3010; Q9967

== ENCOUNTER → 2024-10-04 14:09 | Outpatient (BNV) | payer OTHER, SELFPAY | PROVIDERS: Emergency Provider Emergency Medicine; Visit Provider Urology | DX: N20.1 Calculus of ureter (principal); N13.30 Unspecified hydronephrosis | CPT/HCPCS: 52356; 99284 ==

== ENCOUNTER 2024-10-20 14:28 | Outpatient (AMB) | payer OTHER, SELFPAY ==
--- NOTE | 2024-10-20 14:45 | MHC.OFFVIS ---
Intake Visit Reasons: cysto/stent removal Intake Note: Patient is present for Cystoscopy Urology Med: Pyridium Antibiotic Allergy: None Blood Thinner: None LABS: URO G-HD Disposable Cystoscope LOT: [id number] EXP: 09/12/2027 Patient Symptoms: Allergies No Known Allergies Allergy (Verified 10/04/24 14:21) PFSH Medical History Hernia No known health problems Surgical History History of partial hysterectomy Hx of hernia repair Family History Mother Asthma Fibromyalgia Father No problems noted. Son No problems noted. Daughter No problems noted. 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
--- NOTE | 2024-10-20 15:09 | MHC.OFFVIS ---
Intake Visit Reasons: cysto/stent removal Intake Note: Patient is present for Cystoscopy/STENT REMOVAL Urology Medication:PYRIDIUM,TRAMADOL Antibiotic Allergy:NONE Blood Thinner:NONE Lot:[id number] Exp:09/12/27 Resident Care Aide Required: No Allergies No Known Allergies Allergy (Verified 10/20/24 15:11) HPI Comments Details: Marlen is a pleasant female. She is seen for the following urologic conditions - nephrolithiasis Here for stent removal Three-month follow-up renal ultrasound Urorisk Nephrolithiasis Presentation through emergency room Intervention - 10/02 left ureteroscopy Composition - 10/02 uric acid stone [facility] Medical History Hernia No known health problems Surgical History History of partial hysterectomy Hx of hernia repair Family History Mother Asthma Fibromyalgia Father No problems noted. Son No problems noted. Daughter No problems noted. 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 Review of Systems Const Denies chills and Denies fever(s) Card Reports no additional complaints and Denies syncope Resp Denies cough GI Denies abdominal pain and Denies heartburn Reports as per HPI and Denies change in libido Neuro Denies syncope Psych Denies change in libido Endo Denies change in libido Physical Exam Const General: cooperative, healthy appearing, comfortable and no acute distress Orientation/consciousness: patient oriented x3 HEENT Face and sinus: Yes normal facial exam Mouth: moist mucous membranes Neck Neck: Yes normal visual inspection, Yes full ROM and Yes trachea midline Chest Chest palpation & inspection: normal inspection of the chest Resp Effort & Inspection: normal respiratory effort, able to speak in complete sentences and no respiratory distress GI Inspection: Yes normal to inspection Back/Spine/Pelvis Cervical Spine: normal cervical lordosis Thoracic/Lumbar Spine: thoracic and lumbar spine normal to inspection Skin General skin exam: no rashes or lesions noted Neuro General: patient oriented x3, gait normal, tone normal and moves all extremities Extrem General: Yes normal to inspection and Yes capillary refill normal Office Procedures Cystoscopy Consent Discussed risk and benefit or proposed procedure with the patient. Information consent for procedure given to the patient. Discussed technical aspects, risks, benefits and alternatives in full. Addressed all of the patient's questions and concerns regarding the procedure. The patient demonstrated knowledge and understanding. They wish to proceed with this procedure. Preparation The patient was prepped in the usual manner. A surgery center administrator was present and in the room. Genitalia was prepped with betadine solution in a sterile manner. Lidocaine Jelly 2% was placed into the urethra and 16Fr flexible Olympus cystoscope was inserted into the meatus after adequate lubrication. Procedure A well lubricated 16 Serbian cystoscope was placed No abnormality noted of urethra during placement Indwelling stent seen within bladder emerging from left ureteric orifices The stent was grasped with a 3 prong grasper and removed without difficulty The patient tolerated the procedure well [id number] with stent removal DISPOSABLE SCOPE URO-G FLEXIBLE SCOPE Procedure code (CPT) selection complete Office Meds lidocaine HCl 2 % mucosal jelly in applicator Performing Provider: Joseph Ortega MD [facility] Administered by: Joseph Ortega MD on 10/20/24 15:44 Dose Route Admin Location Dispensed Lot Number Expiration Date [facility] R[facility] Home Health 10 mL intra-urethral 10 mL Results AMB Urinalysis, Automated UA Leukoctes 15 Erick/uL Last Edit by CUCO White on 10/20/24 15:24 UA Nitrite Negative Last Edit by CU[facility] White on 10/20/24 15:24 UA Urobilinogen 0.2 mg/dL Last Edit by CU[facility] White on 10/20/24 15:24 UA Protein 30 mg/dL Last Edit by CU[facility] White on 10/20/24 15:24 UA pH 6.0 Last Edit by CU[facility] White on 10/20/24 15:24 UA Blood 200 Porfirio/uL Last Edit by [facility] White on 10/20/24 15:24 UA Specific [place] 1.025 Last Edit by [facility] White on 10/20/24 15:24 UA Ketone Negative Last Edit by [facility] White on 10/20/24 15:24 UA Bilirubin 0 mg/dL Last Edit by [facility] White on 10/20/24 15:24 UA Glucose 0 mg/dL Last Edit by [facility] White on 10/20/24 15:24 Results Reviewed Results Reviewed: Laboratory Last Values Urine pH (Auto) 6.0 10/20/24 15:23 Specific [place] (Auto) 1.025 10/20/24 15:23 Urine Protein (Auto) 30 mg/dL 10/20/24 15:23 Glucose (UA)(Auto) 0 mg/dL 10/20/24 15:23 Urine Ketones (Auto) Negative 10/20/24 15:23 Urine Blood (Auto) 200 Porfirio/uL 10/20/24 15:23 Urine Nitrite (Auto) Negative 10/20/24 15:23 Urine Bilirubin (Auto) 0 mg/dL 10/20/24 15:23 Urine Urobilinogen (Auto) 0.2 mg/dL 10/20/24 15:23 Leukocyte Esterase (Auto) 15 Erick/uL 10/20/24 15:23 Assessment & Plan Assessment & Plan (1) Nephrolithiasis: Code(s): N20.0 - Calculus of kidney Category: Medical Plan Three-month follow-up ultrasound and Uro risk Dr. Flores Orders: Orders AMB Urinalysis Automated Today Z13.9 - Encounter for screening, unspecified US bladder 3 Months N20.0 - Calculus of kidney URORISK Today N20.0 - Calculus of kidney AMB Cystoscopy Today N20.0 - Calculus of kidney Patient Instructions: Imaging studies, laboratory and physical exam results were discussed and reviewed in detail. No major barriers to patient understanding were identified. An opportunity to ask questions regarding the treatment plan was provided. All questions were answered. The patient expressed understanding and agreement with the above treatment plan. The patient is aware they should contact our office by phone for worsening of their current condition or the appearance of new urologic symptoms. Compliance is encouraged with any medications and followup testing that is ordered. It is a privilege to participate in the urologic care of your patient. If you have any questions or concerns regarding treatment for the above conditions, or other urologic issues, please do not hesitate to contact me. The office telephone contact is [phone]. This note is constructed using voice recognition software. While every effort has been made to ensure accuracy education officer errors may have been included. Yours sincerely, Dr Joseph Ortega MD, [facility] [place] [facility] Providers of Expert, Compassionate Care for the Genitourinary System Coding Level of Care Code Est Pt Level 3 (01164) Diagnoses Nephrolithiasis N20.0 CPT Codes Cystoscopy - CPT: 20835-[id number] with stent removal ([id number])
== END 2024-10-20 15:48 | disposition home or self-care (01) ==
PROVIDERS: Visit Provider Urology
DX: N20.0 Calculus of kidney (principal); Z96.0 Presence of urogenital implants; Z13.9 Encounter for screening, unspecified
CPT/HCPCS: 52310; 99213

== ENCOUNTER → 2024-10-20 14:28 | Outpatient (BNVA) | payer MEDICAID, SELFPAY | PROVIDERS: Visit Provider Urology | DX: N20.0 Calculus of kidney (principal) | CPT/HCPCS: 52310; 81003; 99212 ==

== ENCOUNTER 2025-07-04 05:20 | Emergency (ER) | payer SELFPAY ==
[2025-07-04 05:22] VITALS: BP 119/73; PULSE 89; RESP 16; TEMP 36.2; O2SAT 92; BMI 42.8
[2025-07-04 05:44] LABS: MANUAL DIFF FLAG NO
[2025-07-04 05:45] LABS: Hematocrit 40.9 % (37.0-47.0); Hemoglobin 13.4 g/dl (12.0-16.0); Imm Gran Abs Auto 0.06 X10*3/uL (0.00-0.03); Imm Gran Pct Auto 0.4 % (0.0-0.4); Lymphocytes Absolute Auto 1.3 X10*3/uL (1.2-4.9); Mean Corpuscular HGB Conc 32.8 g/dl (31.0-35.0); Mean Corpuscular Hemoglobin 26.6 pg (27.0-33.0); Mean Corpuscular Volume 81.2 fL (80.0-98.0); NRBC Abs Auto 0.000 X10*3/uL (0.0-0.012); NRBC Pct Auto 0.0 /100WBC (0.0-0.2); Platelet Count 401 X10*3/uL (160-400); Red Blood Count 5.04 X10*6/uL (4.20-5.50); White Blood Count 15.1 X10*3/uL (4.8-10.8)
--- OUTSIDE RECORDS SUMMARY | 2025-07-04 05:59 | XMS_ITS | Clinical Summary ---
Author Organization [address] Address [address] [place] [phone] Phone Care Team Providers Care Election Assistant Name Role Phone Margret Lopez MD Primary Care Prov ider Allergies Active Allergy Reactions Criticality Noted Date Comments Levonorgestrel-Ethinyl Estrad 2018 Seasonal Allergies Medications omeprazole OTC (PriLOSEC OTC) 20 mg EC tablet Take 1 Tab by mouth daily. 05/17/2019 Active PARoxetine (PAXIL) 10 mg tablet Take 1 tablet (10 mg total) by mouth 1 (one) time each day in the evening. 30 each 1 01/25/2025 Active Active Problems Problem Noted Date Diagnosed Date Grief 10/31/2024 Class 3 severe obesity witho ut serious comorbidity with body mass index (BMI) of 40.0 to 44.9 in adult ([facility] V24, [facility] V28) 09/14/2020 Low grade squamous intraepit h lesion on cytologic smear cervix (lgsil) 08/10/2020 Overview (10/11/2024): Pap 07/23/2020 - LSIL Colpo 08/07/2020 - 3:00 JUAN CARLOS 1 ASCUS with positive high risk HPV cervical 07/19 Overview (10/11/2024): Pap 07/08/19 Colpo 09/12/19 - ECC, biopsies at 12:00 and 2:00 - 12:00 JUAN CARLOS 1 Heartburn 05/17/2019 Ventral hernia, recurrent 12/10/2012 Overview (10/11/2024): X3 surgeries. Dr. Johansen Immunizations Name Administration Dates Next Due MMR, measles mumps and rubel la Live (Priorix; M-M-R II) 12mo and older 06/29/2019 Pfizer SARS-CoV-2 COVID-19, mRNA, LNP-S, preservative free 01/13/2022,12/23/2021 Tdap Tetanus diptheria acell ular pertussis (Boostrix; Adacel) 7yo and older 05/03/2018 Surgical History Surgery Date Site/Laterality Comments HERNIA REPAIR 2007, 2008, 2009, 2011 ventral ROBOTIC ASSISTED HYSTERECTOMY 06/22/2024 PERCUTANEOUS NEPHROLITHOTRIPSY Medical History Medical History Date Comments Heartburn Morbid obesity ([facility] V24, [facility] V28) Family History Medical History Relation Name Comments Stroke Maternal Grandfather Alzheimer's disease Maternal Grandmother Asthma Mother fibromyalgia Other: ovarian cancer Mother's side mom's cousin Breast cancer Neg Hx Colon cancer Neg Hx Relation Name Status Comments Maternal Grandfather Maternal Grandmother Alive Mother Alive Mother's side Social History Tobacco Use Types Packs/Day Years Used Date Smoking Tobacco: Never Smokeless Tobacco: Never Tobacco Cessation:Counseling Given: Not Answered Alcohol Use Standard Drinks/Week Comments Yes 0 (1 standard drink = 0.6 oz pur e alcohol) < 1 x per month Housing Instability Answer Date Recorde d Are you worried that in the next 2 months you may not have stable housing? No 10/31/2024 Food Access & Nutrition Answer Date Rec orded Do you have access to a vari ety of food including fruits and vegetables? Yes 10/31/2024 Health Literacy Answer Date Recorded How often do you need to hav e someone help you when you read instructions, pamphlets, or other written material from your doctor or pharmacy? Never 10/31/2024 Caregiver: How often do you need to have someone help you when you read instructions, pamphlets, or other written material from your doctor or pharmacy? Not on file 10/31/2024 Financial Risk Answer Date Recorded How hard is it for you to pa y for the very basics like food, housing, medical care, and air conditioning / heating? Not very hard 10/31/2024 Transportation Answer Date Recorded Has the lack of transportati on kept you from meetings, work, or from getting things needed for daily living? No Has the lack of transportati on kept you from medical appointments or from getting medications? No 10/31/2024 Social Isolation Answer Date Recorded How often do you feel lonely or isolated from th ose around you? Never 10/31/2024 Food Risk Answer Date Recorded Within the past 12 months we worried whether our food would run out before we got money to buy more. Never true 10/31/2024 Within the past 12 months th e food we bought just didn't last and we didn't have money to get more. Never true 10/31/2024 Dependent Care Answer Date Recorded Do you need help finding or paying for care for your loved ones. For example, children's entertainer or elderly care for an older adult? No 10/31/2024 Education Answer Date Recorded Do you think completing more education or training, like finishing a GED, going to college, or learning a trade, would be helpful for you? No 10/31/2024 Employment and Income Answer Date Recor ded During the last four weeks, have you been actively looking for work? No 10/31/2024 Living Situation Answer Date Recorded What is your living situation? 1 01/01/2024 Comments No Sex and Gender Information Value Date Recorded Sex Assigned at Not on file Legal Sex Female 9:56 PM EST Gender Identity Not on file Sexual Orientation Not on file Obstetrics History Last Filed Vital Signs Vital Sign Reading Time Taken Comments Blood Pressure 110/62 01/25/2025 3:40 PM EDT Pulse 89 01/25/2025 3:40 PM EDT Temperature 36.4 C (97.5 F) 01/25/2025 3:40 PM EDT Respiratory Rate 18 01/25/2025 3:40 PM EDT Oxygen Saturation 97% 01/25/2025 3:40 PM EDT Inhaled Oxygen Concentration - - Weight 128 kg (282 lb 12.8 oz) 01/25/2025 3:40 P M EDT Height 170.2 cm (5' 7 ) 01/25/2025 3:40 PM EDT Body Mass Index 44.29 01/25/2025 3:40 PM EDT Plan of Treatment Upcoming Encounters Date Type Department Care Team (Late st Contact Info) Description 07/27/2025 10:30 AM EDT Consult Bariatric Surgery - [place] [address] [place] [address] Megan Del Real MD [address] [place] [address] 11/06/2025 7:30 AM EST Office Visit Adult Medicine [facility] [address] [place] [phone] Margret Lopez MD [address] [place] [phone] Health Maintenance Due Date Last Done Comments Breast Cancer Screening 1980 Hepatitis B Vaccines (1 of 3 - 19+ 3-dose series) 1999 Depression Screening 11/09/2024 05/31/2024 Influenza Vaccine (#1) 2025 Cervical Cancer Screening: HPV 07/23/2025 07/23/2020 Social Influencers of Health Screening 10/31/2025 10/31/2024 DTaP,Tdap,and Td Vaccines (2 - Td or Tdap) 05/03/2028 05/03/2018 Cholesterol Screening (Lipid Panel) 02/02/2029 02/03/2024 MMR Vaccines Aged Out 06/29/2019 No longer eligi ble based on patient's age to complete this topic COVID-19 Vaccine Discontinued 01/13/2022, 12/23/2021 HIV Screening Completed 10/31/2024, 07/17/2022 Hepatitis C Screening Completed 10/31/2024 , 07/17/2022 HIB Vaccines Aged Out No longer eligi ble based on patient's age to complete this topic HPV Vaccines Aged Out No longer eligi ble based on patient's age to complete this topic Hepatitis A Vaccines Aged Out No long er eligible based on patient's age to complete this topic IPV Vaccines Aged Out No longer eligi ble based on patient's age to complete this topic Meningococcal ACWY Vaccine Aged Out N o longer eligible based on patient's age to complete this topic Meningococcal B Vaccine Aged Out No l onger eligible based on patient's age to complete this topic Pneumococcal Vaccine: Pediatrics (0 to 5 Years) and At-Risk Patients (6 to 49 Years) Aged Out No longer eligible based on patient's age to complete this topic RSV Immunization Patients Under 20 months Aged Out No longer eligible based on patient's age to complete this topic Varicella Vaccines Aged Out No longer eligible based on patient's age to complete this topic Procedures Procedure Name Priority Date/Time Associated Diagnosis Comments HEPATITIS C ANTIBODY Routine 10/31/2024 9:03 AM EST Adult general medical examination Screen for STD (sexually transmitted disease) HIV 1, 2 ANTIBODY, P24 ANTIGEN WITH REFLEX TO DIFFERENTIATION Routine 10/31/2024 9:03 AM EST Adult general medical examination Screen for STD (sexually transmitted disease) HM DEPRESSION SCREENING Routine 05/31/2024 LIPID PANEL Routine 02/03/2024 HM HPV Routine 07/23/2020 from Last 3 Months or Most Recently Relevant to Health Maintenance Results * Hepatitis C antibody (10/31/2024 9:03 AM EST) Hepatitis C Antibody Negative Negative LAB CHEMISTRY METHOD 10/31/2024 1:47 PM EST [facility] Blood Venous blood specimen / Unknown Venipuncture / Unknown 10/31/2024 9:03 AM EST 10/31/2024 9:03 AM EST Deanne SYKES LAB BLOOD ORDERABLES Final Resul t [facility] [address] [place] [address], [place] [phone] * HIV 1,2 antibody, p24 antigen with reflex to differentiation (10/31/2024 9:03 AM EST) HIV Combo AB/AG Negative Negative LAB CHEMISTRY METHOD 10/31/2024 1:47 PM EST [facility] Blood Venous blood specimen / Unknown Venipuncture / Unknown 10/31/2024 9:03 AM EST 10/31/2024 9:03 AM EST Narrative [facility] - 10/31/2024 1:47 PM EST This assay is a 4th generation assay allowing for earlier detection of HIV infection by detecting the presence of the HIV-1 p24 antigen as well as the traditional antibodies to HIV type 1 (including group O) and type 2. Use of a 4th generation assay is the current CDC recommendation for HIV screening. Deanne SYKES LAB BLOOD ORDERABLES Final Resul t [facility] [address] [place] [address], [place] [phone] * Depression Screening (05/31/2024) [facility] Depression Screening abstracted Historical Provider HEALTH MAINTENANCE Final Result * Lipid panel (02/03/2024) [facility] LDL/HDL Ratio 3 0 - 4 Triglycerides 78 0 - 150 mg/dL Cholesterol 140 0 - 200 mg/dL HDL 41 >=40 mg/dL LDL Cholesterol 84 0 - 100 mg/dL Blood Venous blood specimen / Unknown Result [facility] Historical Provider LAB BLOOD ORDERABLES Jacquelyn l Result * Cervical Cancer Screening: HPV (07/23/2020) [facility] Cervical Cancer Screening: HPV no interpretation , abstracted Historical Provider HEALTH MAINTENANCE Final Result from Last 3 Months or Most Recently Relevant to Health Maintenance Insurance [facility] [employer] Care Teams Election Assistant Relationship Specialty Start Date End Date Margret Lopez MD [address] [place] [phone] PCP - General Internal Medicine 10/31/24
[2025-07-04 06:06] LABS: Alanine Aminotransferase 27 U/L (0-31); Albumin Level 4.5 g/dL (3.5-5.0); Alkaline Phosphatase 89 U/L (39-117); Anion Gap 17 (12-20); Aspartate Amino Transferase 28 U/L (5-31); Blood Urea Nitrogen 16 mg/dL (9-16); Calcium 9.8 mg/dL (8.4-10.2); Carbon Dioxide 27 mmol/L (22-29); Chloride 99 mmol/L (96-108); Creatinine Clr Calc Pharmacy 104.1; Estimated Glomerular Filt Rate > 60; Magnesium 2.0 mg/dL (1.6-2.6); Potassium 3.6 mmol/L (3.3-5.1); Sodium 139 mmol/L (135-145); Total Protein 8.0 g/dL (6.5-8.0)
[2025-07-04 06:07] LABS: Appearance Urine Hazy; Glucose Urine UA Negative (Negative); PH 6.0 (5.0-9.0); Specific Gravity - Urine 1.020 (1.005-1.025); UMIC TRIGGER UACC YES
[2025-07-04 06:15] LABS: Cannabinoid Screen Urine POSITIVE (Not Detect)
[2025-07-04 06:36] VITALS: BP 100/58; PULSE 86; RESP 16; TEMP 36.6; O2SAT 94
--- NOTE | 2025-07-04 07:27 | ED.GENADULT ---
HPI - General Adult General Chief complaint: Nausea/Vomiting/Diarrhea Stated complaint: ETOH? Time Seen by Provider: 07/04/25 07:23 Source: patient Mode of arrival: ambulatory Limitations: no limitations History of Present Illness ED Provider: DR. Salmon HPI narrative: A 44-year-old female presented to the ER for evaluation of nausea and vomiting with epigastric pain x2 days, patient's symptoms started after drinking hard liquor at the [employer] on Thursday, no sick contacts, no recent travel, no recent use of antibiotic, no fever, no chills, no diarrhea, no blood in the urine or the stool, no dysuria, no frequency urination. No intra-abdominal surgery. Related Data Home Medications ?Medication ?Instructions ?Recorded ?Confirmed Pepcid 20 mg PO DAILY 10/04/24 10/04/24 Previous Rx's ?Medication ?Instructions ?Recorded ibuprofen 600 mg tablet 600 mg PO Q8H PRN pain #20 tabs 07/08/21 phenazopyridine 200 mg tablet 200 mg PO TID PRN urinary burning 10/04/24 (Pyridium) #30 tabs tramadol 50 mg tablet 50 mg PO Q8H PRN pain #12 tabs 10/04/24 oxycodone 5 mg tablet 5 mg PO Q6-8H PRN pain #8 tabs 10/05/24 omeprazole 40 mg capsule,delayed 40 mg PO DAILY #14 caps 07/04/25 release Allergies Allergy/AdvReac Type Severity Reaction Status Date / Time No Known Allergies Allergy Verified 07/04/25 05:22 Review of Systems Review of Systems: All other systems are reviewed and are negative Constitutional: Reports as per HPI and Reports no additional constitutional complaints Eyes: Reports as per HPI and Reports no additional eye complaints Reports system reviewed and no additional complaints, except as documented Cardiovascular: Reports as per HPI and Reports no additional cardiovascular complaints Respiratory: Reports as per HPI and Reports no additional respiratory complaints Gastrointestinal: Reports as per HPI and Reports no additional gastrointestinal complaints Genitourinary: Reports no additional female genitourinary complaints Musculoskeletal: Reports no additional musculoskeletal complaints Skin/Breast: Reports system reviewed and no additional complaints, except as docu Psychiatric: Reports no additional psychiatric complaints Endocrine: Reports no additional endocrine complaints Hematologic/Lymphatic: Reports no additional hematologic/lymphatic complaints Allergic/Immunologic: Reports no additional allergic/immunologic complaints Reports system reviewed and no additional complaints, except as documented and Reports Abnormal speech present [facility] Past Medical History Medical History Hernia No known health problems Surgical History History of partial hysterectomy Hx of hernia repair Family History Family History Mother Asthma Fibromyalgia Father No problems noted. Son No problems noted. Daughter No problems noted. 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 Blood pressure elevated. Heart rate normal. Respiratory rate normal. Temperature normal. Oxygen saturation normal. Appearance: Alert. Oriented X3. No acute distress. Head: Normal external exam. Normocephalic. Atraumatic. No Siddiqi signs noted. No raccoon eyes noted Eyes: PERRLA. EOMI. Conjunctiva and sclera normal. Eyelids normal. ENT: TM's Normal. Pharynx normal. Uvula midline. Moist mucous membranes. No trismus noted. No drooling noted. No muffled voice noted. Neck: Normal inspection. Neck supple. FROM. No adenopathy. Thyroid Normal. No meningeal signs. No neck mass noted. CVS: Normal heart rate and rhythm. Heart sound normal. No murmurs noted. Pulses normal throughout. Respiratory: No respiratory distress. Painless inspiration. Breath sounds normal. No wheezes/rales/rhonchi noted. Chest nontender. No accessory muscle usage noted or decreased air movement noted. Abdomen: Soft, epigastric tenderness, no rebound, no guarding. Bowel sounds normal in all 4 quadrants. No distention noted. No organomegaly noted. No visible injury noted. Back: No CVA tenderness. Full range of motion noted. Skin: Skin warm and dry. Normal skin color. Normal skin turgor. No rashes/lesions/lacerations noted. Extremities: No lower extremity edema. Extremities exhibit normal range of motion. Extremities nontender. Neuro: Oriented X 3. Cranial nerve exam: II-XII are grossly intact No motor deficit. No sensory deficit. Reflexes normal. Course Reevaluation(s) Reevaluation #1: Feels better, able to tolerate p.o. intake, without nausea or vomiting. Except for leukocytosis which is secondary to stress; Labs are unremarkable, patient was instructed to refrain from drinking alcohol. Will start the patient on Prilosec for alcoholic gastritis. Time: 11:39 Medications Administered Discontinued Medications Generic Name Dose Route Start Last Admin Trade Name Freq PRN Reason Stop Dose Admin Al Hydroxide/Mg Hydroxide 30 ml 07/04/25 07:26 07/04/25 07:43 Magnesium Hydrox/Alum Hydrox 30 Ml Oral.Susp PO 07/04/25 07:27 30 ml ONCE ONE Administration Famotidine 20 mg 07/04/25 07:07/04/25 07:44 Famotidine/Pf 20 Mg/2 Ml Vial IVPUSH 07/04/25 07:27 20 mg ONCE ONE Administration Sodium Chloride 1,000 mls @ 999 mls/hr 07/04/25 07:26 07/04/25 10:15 Ns IV 07/04/25 08:26 Infused .Q1H1M ONE Infusion Ondansetron HCl 4 mg 07/04/25 07:26 07/04/25 07:43 Ondansetron Hcl 4 Mg/2 Ml Vial IVPUSH 07/04/25 07:27 4 mg ONCE ONE Administration Medical Decision Making Differential Diagnosis Differential Diagnoses: The differential diagnosis associated with the presentation includes (Alcoholic gastritis, pancreatitis, gallbladder disease, acute appendicitis, colitis, diverticulitis, electrolyte derangement, severe anemia, UTI, .) Admission/Observation Consideration of admission/observation: Escalation of care including admission/observation considered Lab Data MDM Lab Attestation statement: I reviewed the patient's lab results. 07/04/25 05:40 07/04/25 05:40 Labs: Lab Results 07/04/25 07/04/25 Range/Units 05:40 05:58 WBC 15.1 H (4.8-10.8) X10*3/uL RBC 5.04 (4.20-5.50) X10*6/uL Hgb 13.4 (12.0-16.0) g/dl Hct 40.9 (37.0-47.0) % MCV 81.2 (80.0-98.0) fL MCH 26.6 L (27.0-33.0) pg MCHC 32.8 (31.0-35.0) g/dl RDW 17.1 H (11.0-16.0) % Plt Count 401 H (160-400) X10*3/uL MPV 10.3 (9.4-12.3) fL Immature Gran % (Auto) 0.4 (0.0-0.4) % Neut % (Auto) 82.2 H (45-73) % Lymph % (Auto) 8.5 L (20-40) % [place] % (Auto) 8.2 (2-11) % Eos % (Auto) 0.4 (0-4) % Baso % (Auto) 0.3 (0-2) % Lymph # (Auto) 1.3 (1.2-4.9) X10*3/uL [place] # (Auto) 1.2 (0.1-1.2) X10*3/uL Eos # (Auto) 0.1 (0.0-0.4) X10*3/uL Baso # (Auto) 0.1 (0.0-0.2) X10*3/uL Abs Immat Gran (auto) 0.06 H (0.00-0.03) X10*3/uL Absolute Neuts (auto) 12.4 H (2.0-8.3) x10*3/uL Absolute Nucleated RBC 0.000 (0.0-0.012) X10*3/uL Nucleated RBC % (auto) 0.0 (0.0-0.2) /100WBC Sodium 139 (135-145) mmol/L Potassium 3.6 (3.3-5.1) mmol/L Chloride 99 (96-108) mmol/L Carbon Dioxide 27 (22-29) mmol/L Anion Gap 17 (12-20) BUN 16 (9-16) mg/dL Creatinine 0.91 (0.5-1.4) mg/dL Estim Creat Clear Calc 104.1 Estimated GFR > 60 Random Glucose 140 H (60-115) mg/dL Calcium 9.8 (8.4-10.2) mg/dL Magnesium 2.0 (1.6-2.6) mg/dL Total Bilirubin 1.6 H (0.0-1.0) mg/dL AST 28 (5-31) U/L ALT 27 (0-31) U/L Alkaline Phosphatase 89 (39-117) U/L Total Protein 8.0 (6.5-8.0) g/dL Albumin 4.5 (3.5-5.0) g/dL Beta HCG, Quant < 2 mIU/mL Urine Color Yellow Urine Appearance Hazy Urine pH 6.0 (5.0-9.0) Ur Specific [place] 1.020 (1.005-1.025) Urine Protein 30 (1+) H (Neg-Trace) mg/dL Urine Glucose (UA) Negative (Negative) mg/dL Urine Ketones Negative (Negative) mg/dL Urine Blood Negative (Negative) Urine Nitrite Negative (Negative) Ur Leukocyte Esterase Negative (Negative) Urine RBC 0-2 (0-2) /HPF Urine WBC 0-5 (0-5) /HPF Ur Squamous Epith Cells 11-20 (0-2) /HPF Urine Bacteria 2+ (None Seen) Hyaline Casts 0-2 (0-2) /LPF Urine Opiates Screen Not Detected (Not Detect) Ur Buprenorphine Scrn Not Detected (Not Detect) ng/mL Ur Oxycodone Screen Not Detected (Not Detect) ng/mL Urine Methadone Screen Not Detected (Not Detect) ng/mL Urine Fentanyl Screen Not Detected (Not Detect) Ur Barbiturates Screen Not Detected (Not Detect) Ur Phencyclidine Scrn Not Detected (Not Detect) Ur Amphetamines Screen Not Detected (Not Detect) U Benzodiazepines Scrn Not Detected (Not Detect) Urine Cocaine Screen Not Detected (Not Detect) U Marijuana (THC) Screen POSITIVE H (Not Detect) Ethyl Alcohol < 10 mg/dL Discharge Plan Discharge Clinical Impression: Acute alcoholic gastritis Patient Disposition: Home, Self-Care Instructions: Gastritis (ED) Prescriptions: New omeprazole 40 mg capsule,delayed release(DR/EC) 40 mg PO DAILY Qty: 14 0RF No Action oxycodone 5 mg tablet 5 mg PO Q6-8H PRN (Reason: pain) Qty: 8 0RF Rx Instructions: Partial Fill upon patient request. ibuprofen 600 mg tablet 600 mg PO Q8H PRN (Reason: pain) Qty: 20 0RF Pepcid 20 mg PO DAILY tramadol 50 mg tablet 50 mg PO Q8H PRN (Reason: pain) Qty: 12 0RF phenazopyridine [Pyridium] 200 mg tablet 200 mg PO TID PRN (Reason: urinary burning) Qty: 30 0RF Rx Instructions: take pyridium with food Print Language: Nigerien
[2025-07-04] MEDS: Magnesium Hydrox/Alum Hydrox 30 ML ORAL.SUSP PO (07:43)
[2025-07-04 07:50] VITALS: BP 105/57; PULSE 78; RESP 16; O2SAT 95
[2025-07-04 08:01] VITALS: BP 127/77; PULSE 76; RESP 16; O2SAT 95
[2025-07-04 11:51] VITALS: BP 127/78; PULSE 78; RESP 16; TEMP 37; O2SAT 95
== END 2025-07-04 11:52 | disposition home or self-care (01) ==
PROVIDERS: Emergency Provider Emergency Medicine
DX: K29.20 Alcoholic gastritis without bleeding (principal); R11.2 Nausea with vomiting, unspecified; R19.7 Diarrhea, unspecified; R10.13 Epigastric pain; D72.829 Elevated white blood cell count, unspecified
CPT/HCPCS: 36415; 80053; 80076; 80307; 81001; 82248; 83735; 84702; 85025; 99284; J1308; J2405

== ENCOUNTER 2025-07-06 08:33 | Inpatient (IN) | payer MEDICAID, OTHER, SELFPAY ==
[2025-07-06] VITALS (9 sets, daily range): BP systolic 111–128; BP diastolic 58–82; PULSE 78–105; RESP 16–20; TEMP 36.1–36.9; O2SAT 92–97; BMI 44.7; BMI 45.8
--- NOTE | ~2025-07-06 | US_ITS ---
EXAMINATION: US ABDOMEN LIMITED CLINICAL INFORMATION: Right upper quadrant abdominal pain. Elevated liver function tests.. COMPARISON: Correlated to CT abdomen dated October 04, 2024. TECHNIQUE: Real-time ultrasound of the right upper quadrant abdomen, gallbladder using grayscale and color Doppler technique. FINDINGS: Gallbladder is fluid-filled. No pericholecystic fluid collection or gallbladder wall thickening. No distention. Common bile duct measures 3 mm. US/US abdomen limited IMPRESSION: No cholelithiasis or choledocholithiasis. Electronically signed by: Chirag Gee MD 07/06/2025 12:11 PM EDT
--- NOTE | ~2025-07-06 | CT_ITS ---
EXAMINATION: CT ABDOMEN AND PELVIS WITHOUT CONTRAST CLINICAL INFORMATION: upper abdominal pain COMPARISON: 10-04-2024 TECHNIQUE: Multidetector volumetric imaging was performed from the superior aspect of the liver through the pubic symphysis. Sagittal and coronal reformatted images were obtained on the technologist's workstation. This CT examination was performed using dose optimization techniques as appropriate, variously including the following: *Automated exposure control *Adjustment of mA and/or kV according to patient size (this includes techniques or standardized protocols for targeted exams where dose is matched to indication/reason for exam; i.e. extremities or head) *Use of iterative reconstruction technique DLP: 1270 mGY*cm FINDINGS: LUNG BASES: There is focal airspace opacities with air bronchograms in the posterior basal left lower lobe. LIVER, GALLBLADDER, AND BILIARY TREE: The liver is normal in size, shape, and attenuation. No focal hepatic lesion or biliary ductal dilatation is present. The gallbladder is unremarkable with no evidence of radiopaque gallstones, gallbladder wall thickening, or obvious pericholecystic inflammatory changes. PANCREAS: Unremarkable. SPLEEN: Unremarkable. ADRENAL GLANDS: Unremarkable. KIDNEYS AND URETERS: There are punctate bilateral kidney stones. The largest is in the right and measures 2 x 3 mm. There is no hydronephrosis. BLADDER: Unremarkable. GASTROINTESTINAL TRACT: The small bowel is dilated and fluid filled to the level of left infraumbilical hernia which contains a short segment of bowel, approximately 10-15 cm of bowel. The small bowel and large bowel are both decompressed distal to the hernia. Hernia sac measures 5.5 x 3.3 x 4.5 cm (CC by AP by transverse). There is no pneumatosis and no free air. ABDOMINAL WALL: See gastrointestinal tract. There is fat stranding in the left inguinal region, possibly related to a left inguinal hernia. LYMPH NODES: Normal. VASCULAR: Unremarkable. PELVIC VISCERA: Uterus is surgically absent. Ovaries are unremarkable.. OSSEOUS STRUCTURES: Unremarkable. CT/CT abdomen pelvis wo IV con IMPRESSION: There is a high-grade small bowel obstruction involving the jejunum and likely a portion of the ileum. Obstruction is related to a left infraumbilical. Bowel is completely decompressed distal to the obstruction or free air or pneumatosis is present on the study. Possible indirect left inguinal hernia, unchanged. Focal posterior left lower lobe atelectasis, pneumonia not ruled out.. Small bilateral kidney stones, more on the right. Fleischner guidelines were followed. Electronically signed by: Jesus Meraz MD 07/06/2025 01:37 PM EDT RP
--- NOTE | ~2025-07-06 | XR_ITS ---
CLINICAL HISTORY: check NGT placement --- Additional Notes or Special Instructions: not on the floor - 1535-amd Single view of the chest. COMPARISON: None provided. FINDINGS: Enteric tube side hole overlies the expected location of the midthoracic esophagus. Tip is directed superiorly along the left lung base possibly within a hiatal hernia. Low lung volumes. Borderline cardiomegaly likely exaggerated secondary to low lung volumes. Elevation of the left hemidiaphragm. Consolidation along the left lung base adjacent to the diaphragm. No definite pleural effusion. No pneumothorax. No acute fracture IMPRESSION: 1. Enteric tube (NG) side hole overlie the expected location of the midthoracic esophagus. Recommend advancement by minimally 8 cm. Of note the tip of the enteric tube is directed superiorly along the lung base and may be within a hiatal hernia although this is poorly visualized. Cross-sectional imaging or repeat imaging with improved inspiration would be helpful for further evaluation of the location of the tip of the enteric tube. 2. Low lung volumes. 3. Marked elevation of the left hemidiaphragm with the adjacent atelectasis. This document has been electronically signed by: Ladarius Castro MD on 07/06/2025 18:19:33
--- NOTE | 2025-07-06 09:21 | ED.NAVMDI ---
HPI - Nausea/Vomiting/Diarrhea General Chief complaint: Nausea/Vomiting/Diarrhea Stated complaint: Vomiting, body aches Time Seen by Provider: 07/06/25 09:26 Source: patient, RN notes reviewed and old records reviewed Mode of arrival: ambulatory Limitations: no limitations History of Present Illness ED Provider: Khalida ROGERS Narrative: 44-year-old female past medical history significant for obesity, history of kidney stones presents for evaluation of upper abdominal pain, nausea and vomiting. The patient was seen here 2 days ago in his now been having nausea and vomiting for the last 6 days. Her symptoms started after she was drinking alcohol Thursday night She reports burning upper abdominal pain with nausea and vomiting every 2 hours or so. She reports a previous hernia repair but no other abdominal surgeries Her pain is an 8/10. She describes the pain as burning Denies any lower abdominal pain, vaginal bleeding or discharge Associated nausea: Yes Related Data Home Medications ?Medication ?Instructions ?Recorded ?Confirmed Pepcid 20 mg PO DAILY 10/04/24 10/04/24 Previous Rx's ?Medication ?Instructions ?Recorded ibuprofen 600 mg tablet 600 mg PO Q8H PRN pain #20 tabs 07/08/21 phenazopyridine 200 mg tablet 200 mg PO TID PRN urinary burning 10/04/24 (Pyridium) #30 tabs tramadol 50 mg tablet 50 mg PO Q8H PRN pain #12 tabs 10/04/24 oxycodone 5 mg tablet 5 mg PO Q6-8H PRN pain #8 tabs 10/05/24 omeprazole 40 mg capsule,delayed 40 mg PO DAILY #14 caps 07/04/25 release Allergies Allergy/AdvReac Type Severity Reaction Status Date / Time No Known Allergies Allergy Verified 07/06/25 08:59 Review of Systems Constitutional: Constitutional: Denies body ache(s), Denies chills, Denies fever(s) and Denies headache(s) ENT: Denies vertigo, Denies dizziness and Denies headache(s) Cardiovascular: Cardiovascular: Denies chest pain and Denies dyspnea on exertion Respiratory: Respiratory: Denies cough and Denies dyspnea on exertion Gastrointestinal: Gastrointestinal: Reports abdominal pain, Denies melena, Denies hematochezia, Reports nausea, Reports vomiting and Denies hematemesis Musculoskeletal: Musculoskeletal: Denies back pain Integumentary/Breasts: Skin/Breast: Denies rash Neurologic: Denies vertigo, Denies dizziness and Denies headache(s) Psychiatric: Psychiatric: Denies anxiety PMFSH Past Medical History Medical History Hernia No known health problems Surgical History History of partial hysterectomy Hx of hernia repair Family History Family History Mother Asthma Fibromyalgia Father No problems noted. Son No problems noted. Daughter No problems noted. 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 Physical Exam Vital Signs: Vital Signs: Last Vital Signs Temp 98.5 F 07/06/25 08:55 Pulse 105 H 07/06/25 08:55 Resp 18 07/06/25 08:55 BP 115/58 L 07/06/25 08:55 Pulse Ox 93 07/06/25 08:55 O2 Del Method Room Air 07/06/25 08:55 BMI result Body Mass Index 44.7 Const: General: healthy appearing, comfortable, no acute distress, alert and awake Nutritional Appearance: well nourished Orientation/consciousness: patient oriented x3 HEENT: Head: Yes normocephalic and Yes atraumatic Eyes: Eyelids: Yes eyelids normal Conjunctivae: conjunctivae normal Sclerae: sclerae normal Corneas: corneas normal Pupils: Equal, round and reactive pupils present EOM: EOMs intact bilaterally Neck: Neck: Yes full ROM Resp: Effort & Inspection: normal respiratory effort, able to speak in complete sentences and not labored GI: Inspection: No distended Palpation (GI): Soft to palpation, not firm, Tenderness to palpation present (GI) in the epigastrum and in the LUQ; not in the RUQ and Rajan's sign negative, no guarding and not rigid Skin: General skin exam: elasticity normal Neuro: General: patient oriented x3 Cranial nerves: Yes Equal, round and reactive pupils present and Yes Bilaterally intact EOM present Cognition (Neuro): normal cognition Course Course Course Narrative: 44 yo female with no sig PMH but has hx of kidney stones and hernia repair she reports since drinking bakari on Thursday she has had n/v every 2 hours with some pain across abdomen. She has spasms of the chest wall as well d ue to vomiting. NO GIB symptoms reported. At this time labs, IVF and supportive meds ordered this is a RAPID medical screening exam the rest of the history and physical exam is to be done by the main provider. ANTIONETTE 07/06/25 924am Reevaluation(s) Reevaluation #1: Patient's gallbladder ultrasound was relatively unremarkable, therefore I obtained a CT scan of the abdomen pelvis without contrast due to her PRISCILLA. This showed a high-grade small-bowel obstruction. I discussed with Dr. Allen, general surgery Time: 13:56 Medications Administered Discontinued Medications Generic Name Dose Route Start Last Admin Trade Name Freq PRN Reason Stop Dose Admin Diphenhydramine HCl 25 mg 07/06/25 09:23 07/06/25 09:42 Diphenhydramine Hcl 50 Mg/Ml Vial IVPUSH 07/06/25 09:24 25 mg ONCE ONE Administration Lactated Ringer's 1,000 mls @ 999 mls/hr 07/06/25 09:23 07/06/25 11:12 Lr IV 07/06/25 10:23 Infused .Q1H1M ONE Infusion Lactated Ringer's 1,000 mls @ 999 mls/hr 07/06/25 10:45 07/06/25 11:12 Lr IV 07/06/25 11:45 999 mls/hr .Q1H1M ERIS Administration Metoclopramide HCl 10 mg 07/06/25 09:23 07/06/25 09:42 Metoclopramide Hcl 10 Mg/2 Ml Vial IVPUSH 07/06/25 09:24 10 mg ONCE ONE Administration Ondansetron HCl 4 mg 07/06/25 10:32 07/06/25 11:06 Ondansetron Hcl 4 Mg/2 Ml Vial IVPUSH 07/06/25 10:33 4 mg ONCE ONE Administration Pantoprazole Sodium 40 mg 07/06/25 10:32 07/06/25 11:07 Pantoprazole Sodium 40 Mg/10 Ml Vial IVPUSH 07/06/25 10:33 40 mg ONCE ONE Administration Medical Decision Making Medical Decision Making [facility] Narrative: 44-year-old female with a past medical history as above presents for evaluation of upper abdominal pain with nausea and vomiting. Her symptoms have now been present for a total of 6 days. She was seen here 2 days ago and had labs, she was treated with IV fluids and antiemetics but ultimately discharged home. No imaging was performed at that time. Today the patient is quite tender in the epigastric and left upper quadrant, no right upper quadrant tenderness. The [place] [address] which is higher than it was 2 days ago. There was no significant anemia. Chemistries are significant for a hyponatremia of 133, chloride of 86 and a carbon dioxide is elevated to 31 with a BUN of 30 and a creatinine of 1.74. These results are likely all due to her persistent vomiting and GI loss of electrolytes. Of note, the patient's BUN and creatinine 2 days ago was 16 and 0.91 respectively, therefore head nearly a 2 times increase in the last 2 days. The patient's T bili is elevated to 3.0 with an AST of 112, ALT of 157, lipase is normal limits. We will get an ultrasound of the right upper quadrant due to the upper abdominal pain with nausea vomiting and elevated LFTs. Differential Diagnosis Differential Diagnoses: The differential diagnosis associated with the presentation includes Hepatitis Cholecystitis Gastritis Peptic ulcer disease Pancreatitis Choledocholithiasis Lab Data [facility] Lab Attestation statement: I reviewed the patient's lab results. As above 07/06/25 09:17 07/06/25 09:17 Labs: Lab Results 07/06/25 07/06/25 07/06/25 Range/Units 09:17 09:38 10:50 WBC 18.1 H (4.8-10.8) X10*3/uL RBC 5.66 H (4.20-5.50) X10*6/uL Hgb 15.2 (12.0-16.0) g/dl Hct 45.0 (37.0-47.0) % MCV 79.5 L (80.0-98.0) fL MCH 26.9 L (27.0-33.0) pg MCHC 33.8 (31.0-35.0) g/dl RDW 16.9 H (11.0-16.0) % Plt Count 476 H (160-400) X10*3/uL MPV 10.3 (9.4-12.3) fL Absolute Nucleated RBC 0.000 (0.0-0.012) X10*3/uL Nucleated RBC % (auto) 0.0 (0.0-0.2) /100WBC Sodium 133 L (135-145) mmol/L Potassium 3.3 (3.3-5.1) mmol/L Chloride 86 L (96-108) mmol/L Carbon Dioxide 31 H (22-29) mmol/L Anion Gap 19 (12-20) BUN 30 H (9-16) mg/dL Creatinine 1.74 H (0.5-1.4) mg/dL Estim Creat Clear Calc 55.8 Estimated GFR 32 Random Glucose 148 H (60-115) mg/dL Calcium 10.5 H D (8.4-10.2) mg/dL Magnesium 2.2 (1.6-2.6) mg/dL Total Bilirubin 3.0 H (0.0-1.0) mg/dL AST 112 H (5-31) U/L ALT 157 H (0-31) U/L Alkaline Phosphatase 101 (39-117) U/L Total Protein 9.2 H (6.5-8.0) g/dL Albumin 5.2 H (3.5-5.0) g/dL Lipase 17 (8-78) U/L Beta HCG, Quant < 2 mIU/mL Hepatitis A IgM Ab Nonreactive (Nonreactive) Hep Bs Antigen Negative (Negative) Hep Bs Antibody REACTIVE (Nonreactive) Hep B Core Total Ab Nonreactive (Nonreactive) Hepatitis C Ab (EIA) Nonreactive (Nonreactive) Independent Interpretation I performed an independent interpretation of an: CT Scan Interpretation: Agree with Radiology interpretation, obstructive bowel pattern Radiology Impression Discussion of test interpretation with radiology: I have reviewed the radiologist's reading. Radiologist Impression: FINDINGS: Gallbladder is fluid-filled. No pericholecystic fluid collection or gallbladder wall thickening. No distention. Common bile duct measures 3 mm. US/US abdomen limited IMPRESSION: No cholelithiasis or choledocholithiasis. Electronically signed by: Chirag Gee MD 07/06/2025 12:11 PM EDT RP MPRESSION: There is a high-grade small bowel obstruction involving the jejunum and likely a portion of the ileum. Obstruction is related to a left infraumbilical. Bowel is completely decompressed distal to the obstruction or free air or pneumatosis is present on the study. Possible indirect left inguinal hernia, unchanged. Focal posterior left lower lobe atelectasis, pneumonia not ruled out.. Small bilateral kidney stones, more on the right. Fleischner guidelines were followed. Electronically signed by: Jesus Meraz MD 07/06/2025 01:37 PM EDT RP Discharge Plan Discharge Clinical Impression: Small bowel obstruction, PRISCILLA (acute kidney injury) Patient Disposition: Admitted As Inpatient Print Language: [place]an
[2025-07-06 09:39] LABS: Hematocrit 45.0 % (37.0-47.0); Hemoglobin 15.2 g/dl (12.0-16.0); Mean Corpuscular HGB Conc 33.8 g/dl (31.0-35.0); Mean Corpuscular Hemoglobin 26.9 pg (27.0-33.0); Mean Corpuscular Volume 79.5 fL (80.0-98.0); NRBC Abs Auto 0.000 X10*3/uL (0.0-0.012); NRBC Pct Auto 0.0 /100WBC (0.0-0.2); Platelet Count 476 X10*3/uL (160-400); Red Blood Count 5.66 X10*6/uL (4.20-5.50); White Blood Count 18.1 X10*3/uL (4.8-10.8)
[2025-07-06] MEDS: Lactated Ringers 1,000 ML 999 ML IV ×2 (09:42→11:12)
[2025-07-06 09:57] LABS: Alanine Aminotransferase 157 U/L (0-31); Albumin Level 5.2 g/dL (3.5-5.0); Alkaline Phosphatase 101 U/L (39-117); Anion Gap 19 (12-20); Aspartate Amino Transferase 112 U/L (5-31); Blood Urea Nitrogen 30 mg/dL (9-16); Calcium 10.5 mg/dL (8.4-10.2); Carbon Dioxide 31 mmol/L (22-29); Chloride 86 mmol/L (96-108); Creatinine Clr Calc Pharmacy 55.8; Estimated Glomerular Filt Rate 32; Magnesium 2.2 mg/dL (1.6-2.6); Potassium 3.3 mmol/L (3.3-5.1); Sodium 133 mmol/L (135-145); Total Protein 9.2 g/dL (6.5-8.0)
[2025-07-06 10:07] LABS: Lipase 17 U/L (8-78)
--- NOTE | 2025-07-06 10:13 | PC.NURSE ---
Pt comes from home, pt was seen here on a couple of days ago for ETOH posioning, pt reporting she was not given medications to take at DC, but she returns d/t no PO intake x2 days, and continued vomiting with diffuse abdominal pain. Pt reporting she had been to a republican and had not ate prior to drinking. IV obtained, IVF and medications given per MAR. Pt has had a couple episodes of vomiting since being in room. awaiting lab/testing results at this time.
--- OUTSIDE RECORDS SUMMARY | 2025-07-06 10:40 | XMS_ITS | Clinical Summary ---
Author Organization [address] Address [address] [place] [phone] Phone Care Team Providers Care Supply Specialist Name Role Phone Margret Lopez MD Primary [...] (BMI) of 40.0 to 44.9 in adult ([facility] V24, [facility] V28) 09/14/2020 Low grade squamous intraepit h [...] Medical History Date Comments Heartburn Morbid obesity ([facility] V24, [facility] V28) Family History Medical History Relation Name [...] care for your loved ones. For example, child adolescent psychiatrist or elderly care for an older adult? [...] 10:30 AM EDT Consult Bariatric Surgery - [place] [address] [place] [address] Megan Del Real MD [address] [place] [address] 11/06/2025 7:30 AM EST Office Visit Adult Medicine [facility] [address] [place] [phone] Margret Lopez MD [address] [place] [id number] Health Maintenance Due Date Last Done Comments [...] LAB CHEMISTRY METHOD 10/31/2024 1:47 PM EST [facility] Blood Venous blood specimen / Unknown Venipuncture / Unknown 10/31/2024 9:03 AM EST 10/31/2024 9:03 AM EST Deanne SYKES LAB BLOOD ORDERABLES Final Resul t [facility] [address] [place] [address], [place] [phone] * HIV 1,2 antibody, p24 antigen with reflex to differentiation (10/31/2024 9:03 AM EST) HIV Combo AB/AG Negative Negative LAB CHEMISTRY METHOD 10/31/2024 1:47 PM EST [facility] Blood Venous blood specimen / Unknown Venipuncture / Unknown 10/31/2024 9:03 AM EST 10/31/2024 9:03 AM EST Narrative [facility] - 10/31/2024 1:47 PM EST [...] SYKES LAB BLOOD ORDERABLES Final Resul t [facility] [address] [place] [address], [place] [phone] * Depression Screening (05/31/2024) [facility] Depression Screening abstracted Historical Provider HEALTH MAINTENANCE Final Result * Lipid panel (02/03/2024) [facility] LDL/HDL Ratio 3 0 - 4 Triglycerides 78 0 - 150 mg/dL Cholesterol 140 0 - 200 mg/dL HDL 41 >=40 mg/dL LDL Cholesterol 84 0 - 100 mg/dL Blood Venous blood specimen / Unknown Result [facility] Historical Provider LAB BLOOD ORDERABLES Jacquelyn l Result * Cervical Cancer Screening: HPV (07/23/2020) [facility] Cervical Cancer Screening: HPV no interpretation , abstracted Historical Provider HEALTH MAINTENANCE Final Result from Last 3 Months or Most Recently Relevant to Health Maintenance Insurance [facility] Care Teams Supply Specialist Relationship Specialty Start Date End Date Margret Lopez MD [address] [place] [id number] PCP - General Internal Medicine 10/31/24
[2025-07-06 11:32] LABS: HBS Num1 87.04 mIU/mL (0-7.99); HBc Num1 0.06 S/CO (0.00-0.79); Hepatitis A Antibody IgM 0.17 Index (0-0.79); ~HepC Num1 0.14 S/CO (0.00-0.79); ~Hepatitis A Antibody IgM Nonreactive (Nonreactive); ~Hepatitis B Surface Antibody REACTIVE (Nonreactive); ~Hepatitis C Antibody Nonreactive (Nonreactive)
[2025-07-06 12:03] LABS: HBsAGNum1 0.35 S/CO (0.00-0.99); Hepatitis B Surface Antigen Negative (Negative)
--- NOTE | 2025-07-06 14:54 | PM.HPGS ---
History of Present Illness History of Present Illness Date of Service: 07/06/25 <Ken Liu PA-C - Last Filed: 07/06/25 15:29> 07/06/25 <Jim Allen MD - Last Filed: 07/06/25 17:12> Chief complaint: SBO <Ken Liu PA-C - Last Filed: 07/06/25 15:29> Narrative: Marlen Gong is a 44 year old female with a history of nephrolithiasis, obesity presenting to the ED with nausea and vomiting and epigastric abdominal pain since thursday. She initially thought this was related to alcohol, however has not resolved. She presented to the ED on 07/04/2025 with the same symptoms and was diagnosed with acute alcoholic gastritis, discharged. She states that her symptoms have not resolved. She experiences reflux like symptoms with n/v every 2 hours. Additionally she has been unable to tolerate diet. She states her vomit appears brown, taste like ?Paula?. Upon presentation in the ED she was tachycardic, she has leukocytosis 18.1, PRISCILLA likely related to vomiting. CT scan of the abdomen shows a high grade SBO, with proximal small bowel and gatric distention and a transition point distal to an infraumbilical hernia that contains bowel. Upon reviewing the CT the patient also has a large hiatal hernia. She was unaware of this and upon reviewing a previous Ct from 09/2024, this was present. surgical history is significant for multiple hernia repairs in the past, she believes this was with mesh. She also had a hysterectomy, unsure of the approach used. She endorses occasional alcohol use, denies smoking. She has no known allergies <Ken Liu PA-C - Last Filed: 07/06/25 15:29> [facility] Past Medical History Medical History: Medical History Hernia No known health problems <Ken Liu PA-C - Last Filed: 07/06/25 15:29> Family History Family History: Family History Mother Asthma Fibromyalgia Father No problems noted. Son No problems noted. Daughter No problems noted. <Ken Liu PA-C - Last Filed: 07/06/25 15:29> Surgical History Surgical History: Surgical History History of partial hysterectomy Hx of hernia repair <Ken Liu PA-C - Last Filed: 07/06/25 15:29> Social History Social History: Social History Are you a primary manager critical care unit to a significant other at home: No Do you presently have visiting nurse or other home services: No Alcohol intake: current Alcohol intake frequency: does not drink Alcohol type: hard liquor Comment: SHORT STAY SURGERY Patient Tobacco Use Status: Current everyday Tobacco user Use of substances other than those prescribed or required for medical reasons: No Have you been hit, kicked, punched, or otherwise hurt by someone within the past year? 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 <Ken Liu PA-C - Last Filed: 07/06/25 15:29> Meds Allergies/Adverse reactions: Allergies Allergy/AdvReac Type Severity Reaction Status Date / Time No Known Allergies Allergy Verified 07/06/25 08:59 <Ken Liu PA-C - Last Filed: 07/06/25 15:29> Home medications: Home Medications ?Medication ?Instructions ?Recorded ?Confirmed ?Last Taken ?Type Pepcid 20 mg PO DAILY 10/04/24 10/04/24 10/03/24 History <Ken Liu PA-C - Last Filed: 07/06/25 15:29> Physical Exam Vital Signs: Vital Signs: Last Vital Signs Temp 98.5 F 07/06/25 08:55 Pulse 105 H 07/06/25 08:55 Resp 18 07/06/25 08:55 BP 115/58 L 07/06/25 08:55 Pulse Ox 93 07/06/25 08:55 O2 Del Method Room Air 07/06/25 08:55 BMI result Body Mass Index 44.7 <HASEEB Reyes Last Filed: 07/06/25 15:29> Const: General: no acute distress; No comfortable <Ken Liu PA-C - Last Filed: 07/06/25 15:29> Nutritional Appearance: obese <Ken LiuHASEEB Maxim Last Filed: 07/06/25 15:29> Orientation/consciousness: patient oriented x3 <Ken Liu PA-C Maxim Last Filed: 07/06/25 15:29> Resp: Effort & Inspection: normal respiratory effort and able to speak in complete sentences <Ken BennetttinHASEEB Maxim Last Filed: 07/06/25 15:29> Auscultation: clear to auscultation bilaterally and diminished lung sounds (mildly diminished on the left) <Ken HASEEB Liu Maxim Last Filed: 07/06/25 15:29> GI: Inspection: Yes distended <Ken NoeHASEEB Maxim Last Filed: 07/06/25 15:29> Palpation (GI): Soft to palpation, Tenderness to palpation present (GI) (infraumbilical located at the site of the hernia. ) in the epigastrum and no guarding <Ken Liu PA-C Maxim Last Filed: 07/06/25 15:29> Neuro: General: patient oriented x3 <Ken NoeHASEEB Maxim Last Filed: 07/06/25 15:29> Results Results Labs: Short CBC 07/06/25 Range/Units 09:17 WBC 18.1 H (4.8-10.8) X10*3/uL Hgb 15.2 (12.0-16.0) g/dl Hct 45.0 (37.0-47.0) % Plt Count 476 H (160-400) X10*3/uL BMP 07/06/25 09:17 Sodium 133 L Potassium 3.3 Chloride 86 L Carbon Dioxide 31 H BUN 30 H Creatinine 1.74 H Calcium 10.5 H D Liver Function 07/06/25 Range/Units 09:17 Total Bilirubin 3.0 H (0.0-1.0) mg/dL AST 112 H (5-31) U/L ALT 157 H (0-31) U/L Alkaline Phosphatase 101 (39-117) U/L Albumin 5.2 H (3.5-5.0) g/dL <HASEEB Reyes Last Filed: 07/06/25 15:29> Assessment and Plan (1) Small bowel obstruction: Status: Acute <Ken Liu PA-C - Last Filed: 07/06/25 15:29> (2) Incisional hernia: Qualifiers: Obstruction and gangrene presence: with obstruction but without gangrene Qualified Code(s): K43.0 - Incisional hernia with obstruction, without gangrene <Ken Liu PA-C - Last Filed: 07/06/25 15:29> Status: Acute <Ken Liu PA-C - Last Filed: 07/06/25 15:29> (3) PRISCILLA (acute kidney injury): Status: Acute <HASEEB Reyes Last Filed: 07/06/25 15:29> 44 year old female with a history of nephrolithiasis, obesity presenting to the ED with nausea and vomiting and epigastric abdominal pain since thursday. She was initially seen in the ED with these symptoms on 07/04, was treated for alcoholic gastritis, but her symptoms have remained. On her labs drawn in the ED there is a mild leukocytosis 18.1 and she also has PRISCILLA likely due to her persistent vomiting I reviewed the CT of her abdomen, showing a SBO, with proximal small bowel and stomach with a transition point to decompressed small bowel located in a infraumbilical hernia containing bowel. Additionally there is a large hiatal hernia containing much of the stomach in the left chest. This was present on her most recent previous CT in september 2024. At this point her oxygen saturations are low but stable, non hypoxic. breath sounds are slightly diminished and there were no gastric sounds in the chest. The infraumbilical hernia was palpable on exam, however was unable to be reduced at bedside. She will have NG tube placed, and we will proceed with admission and surgical repair of the hernia with possible small bowel resection. She has been added on to the schedule for this evening. Patient understands this procedure, and understands risks including but not limited to bleeding, infection, injury to surrounding organs. She is consenting to this procedure. We also discussed that we are unable to repair the hiatal hernia here at [facility], and that she will likely need to have this repaired in the future at a tertiary facility. NG tube IV fluids pain regimen She has been NPO, unable to eat for a few days repair of hernia <Ken Liu PA-C - Last Filed: 07/06/25 15:29> 44 year old female with a history of nephrolithiasis, obesity presenting to the ED with nausea and vomiting and epigastric abdominal pain since thursday. She was initially seen in the ED with these symptoms on 07/04, was treated for alcoholic gastritis, but her symptoms have remained. On her labs drawn in the ED there is a mild leukocytosis 18.1 and she also has PRISCILLA likely due to her persistent vomiting I reviewed the CT of her abdomen, showing a SBO, with proximal small bowel and stomach with a transition point to decompressed small bowel located in a infraumbilical hernia containing bowel. Additionally there is a large hiatal hernia containing much of the stomach in the left chest. This was present on her most recent previous CT in september 2024. At this point her oxygen saturations are low but stable, non hypoxic. breath sounds are slightly diminished and there were no gastric sounds in the chest. The infraumbilical hernia was palpable on exam, however was unable to be reduced at bedside. She will have NG tube placed, and we will proceed with admission and surgical repair of the hernia with possible small bowel resection. She has been added on to the schedule for this evening. Patient understands this procedure, and understands risks including but not limited to bleeding, infection, injury to surrounding organs. She is consenting to this procedure. We also discussed that we are unable to repair the hiatal hernia here at [facility], and that she will likely need to have this repaired in the future at a tertiary facility. NG tube IV fluids pain regimen She has been NPO, unable to eat for a few days repair of hernia I reviewed the procedure, risks, and alternatives regarding this incarcerated and possibly strangulated ventral hernia and she consents to a repair of the incarcerated ventral hernia with mesh. She has been added onto the operative schedule for today. <Jim Allen MD - Last Filed: 07/06/25 17:12> Quality Stroke Does the patient have a stroke diagnosis?: No <Jim Allen MD - Last Filed: 07/06/25 17:12> VTE Prior VTE?: No <Jim Allen MD - Last Filed: 07/06/25 17:12> VTE Risk Level:: Surgical - moderate <Jim Allen MD - Last Filed: 07/06/25 17:12> VTE Device Contraindication: N/A - Device Ordered <Jim Allen MD - Last Filed: 07/06/25 17:12> VTE Drug Contraindication: Treatment Not Indicated <Jim Allen MD - Last Filed: 07/06/25 17:12> Procedures Date of Service Date of Service: 07/06/25 <Ken Liu PA-C - Last Filed: 07/06/25 15:29> 07/06/25 <Jim Allen MD - Last Filed: 07/06/25 17:12>
--- NOTE | 2025-07-06 15:40 | HO.ANESPROP2 ---
HPI - Anesthesia Eval Consult details Narrative: 44 yo F presenting for incarcerated ventral hernia repair PMFSH Active Problems Active Problems: All Active Problems (Updated 07/06/25 @ 15:15 by Ken Liu PA-C) Incisional hernia (Acute) PRISCILLA (acute kidney injury) (Acute) Small bowel obstruction (Acute) Nephrolithiasis (Acute) Morbid obesity (Acute) Right knee sprain (Acute) Past Medical History Medical History Hernia No known health problems Family History Family History Mother Asthma Fibromyalgia Father No problems noted. Son No problems noted. Daughter No problems noted. Family history of problems with anesthesia: No Surgical History Surgical History History of partial hysterectomy Hx of hernia repair History of Problems with Anesthesia: No Social History Social History Are you a primary senior care provider to a significant other at home: No Do you presently have visiting nurse or other home services: No Alcohol intake: current Alcohol intake frequency: does not drink Alcohol type: hard liquor Comment: SHORT STAY SURGERY Patient Tobacco Use Status: Current everyday Tobacco user Use of substances other than those prescribed or required for medical reasons: No Have you been hit, kicked, punched, or otherwise hurt by someone within the past year? 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 Meds Allergies Allergy/AdvReac Type Severity Reaction Status Date / Time No Known Allergies Allergy Verified 07/06/25 08:59 Active Medications: Current Medications Haloperidol Lactate (Haloperidol Lactate 5 Mg/Ml Vial) 1 mg IVPUSH ONCE PRN PRN Reason: intractable nausea Stop: 07/06/25 22:14 Hydromorphone HCl (Hydromorphone Hcl 1 Mg/Ml Syringe) 0.5 mg IVPUSH Q4H PRN; Protocol PRN Reason: Pain, Severe (Pain Scale 7-10) Hydromorphone HCl (Hydromorphone Hcl 0.5 Mg/0.5 Ml Syringe) 0.5 mg IVPUSH Q5M PRN PRN Reason: Pain, Moderate to Severe (Pain Scale 4-10) Stop: 07/06/25 22:14 Sodium Chloride (Ns) 1,000 mls @ 100 mls/hr IVCONT .Q10H [facility] Ketorolac Tromethamine (Ketorolac Tromethamine 30 Mg/Ml Vial) 30 mg IVPUSH Q6H PRN PRN Reason: Pain, Mild (Pain Scale 1-3) Stop: 07/11/25 14:59 Naloxone HCl (Naloxone Hcl 0.4 Mg/Ml Vial) 0.04 mg IVPUSH Q5M PRN PRN Reason: Excessive sedation or RR < 8 Ondansetron HCl (Ondansetron Hcl 4 Mg/2 Ml Vial) 4 mg IVPUSH Q8H PRN PRN Reason: Nausea and Vomiting Sodium Chloride (0.9 % Sodium Chloride Flush 3 Ml Syringe) 3 ml IVFLUSH QSHIFT [facility] Home Medications ?Medication ?Instructions ?Recorded ?Confirmed ?Last Taken ?Type Pepcid 20 mg PO DAILY 10/04/24 10/04/24 10/03/24 History Exam Exam Date and Time: 07/06/25 1540 Height,Weight and Vital Signs: Height 5 ft 6 in Weight 125.7 kg Last Vital Signs Temp 98.4 F 07/06/25 15:23 Pulse 89 07/06/25 15:23 Resp 18 07/06/25 15:23 BP 118/82 07/06/25 15:27 Pulse Ox 96 07/06/25 15:23 O2 Del Method Room Air 07/06/25 15:23 Pertinent Lab Results Pertinent Lab Results: Laboratory Tests 07/06/25 07/06/25 07/06/25 09:17 09:38 10:50 WBC 18.1 H RBC 5.66 H Hgb 15.2 Hct 45.0 MCV 79.5 L MCH 26.9 L MCHC 33.8 RDW 16.9 H Plt Count 476 H MPV 10.3 Absolute Nucleated RBC 0.000 Nucleated RBC % (auto) 0.0 Sodium 133 L Potassium 3.3 Chloride 86 L Carbon Dioxide 31 H Anion Gap 19 BUN 30 H Creatinine 1.74 H Estim Creat Clear Calc 55.8 Estimated GFR 32 Random Glucose 148 H Calcium 10.5 H D Magnesium 2.2 Total Bilirubin 3.0 H AST 112 H ALT 157 H Alkaline Phosphatase 101 Total Protein 9.2 H Albumin 5.2 H Lipase 17 Beta HCG, Quant < 2 Hepatitis A IgM Ab Nonreactive Hep Bs Antigen Negative Hep Bs Antibody REACTIVE Hep B Core Total Ab Nonreactive Hepatitis C Ab (EIA) Nonreactive Airway Mallampati Class: II TM Dist: <=3cm Neck ROM: Full Loose/Missing/Broken Teeth: No (patient denies any loose or broken teeth) Heart: S1S2 Lungs: CTAB Assessment and Plan Assessment Anesthesia Assessment: Anesthesia Plan Discussed and Chart Reviewed Final Anesthetic Review Family History of Problems with Anesthesia: No History of Problems with Anesthesia: No NPO: Yes ASA Class: III and Emergency Final Preanesthetic Review: No Changes in Pt Med Stat, Meds/Allgs Chart Reviewed, Consent Obtained/Reviewed and Anes Risks/Benef Reviewed Patient Risk: Intermediate Procedure Risk: Intermediate Anesthetic Plan Anesthetic Plan: GA and Agree w/ Assess. and Plan Disposition: Standard PACU
--- NOTE | 2025-07-06 17:13 | P.OP_ITS ---
Operative Note Operative Note Date of Service: 07/06/25 Narrative: Preoperative diagnosis: Incarcerated ventral hernia Postoperative diagnosis: Same Procedure: Repair of incarcerated ventral hernia with mesh Surgeon: Jim Allen MD Manager Of Creative Services: Ken Liu PA-C, JOSIE Romero Anesthesia: General endotracheal Indications for procedure: 44-year-old female patient with a prior history of incisional hernias now presenting with a new ventral hernia in the lower abdomen with a resulting small-bowel obstruction. CT reveals a loop of small bowel as a lead point of an obstruction Operative findings: Incarcerated small bowel within the hernia sac. Bowel was initially dusky but after opening the hernia pinked up to normal. Specimen: Hernia sac Estimated blood loss: Less than 5 mL Complications: None Procedure details: Patient was brought to the OR and placed in a supine position. After administering general anesthesia the patient's abdomen was prepped with ChloraPrep and draped in a sterile fashion. A surgical time-out was called the consent confirmed. Patient received preoperative antibiotics and Venodyne boots were in place. Local anesthesia consisting of 0.5% Sensorcaine was infiltrated in the midline below the umbilicus. A 10 cm incision was then made below the umbilicus and carried out through subcutaneous tissue, up to the hernia sac. The hernia sac was then dissected circumferentially down to the fascial edge. Hernia sac was then entered and a small amount of serous fluid evacuated. A loop of small bowel was noted within the hernia sac. The fascia was opened slightly in the superior aspect of the hernia to allow easy return of the bowel into the abdominal cavity. The bowel was observed and noted to returned to normal color. Hernia sac was then excised and the peritoneum closed using a 2-0 Polysorb suture. A preperitoneal space was then dissected below the fascial defect. A 4.6 cm round Phasix mesh was then obtained. This was secured in 4 quadrants using a 1 Tycron suture and placed in the abdomen using a parachute method. Fascia was then closed over the mesh using [id number] 1 Tycron sutures. Wounds were irrigated with saline solution and suctioned dry. Approximately 3 mL of Zenrelef was then instilled around the mesh and subcutaneous tissue. Kimberly's fascia was then reapproximated using interrupted 3-0 Polysorb sutures. Dermis was reapproximated using interrupted 3-0 Polysorb sutures. Skin was then closed using skin suzanne. Sterile dressings consisting of 4 x 4 gauze and Tegaderm were then applied. The patient tolerated the procedure well. Sponge, instrument, and needle counts reported as correct. The patient was transferred to PACU in stable condition.
[2025-07-06] MEDS: Dextrose 5 % and Lactated Ring 1,000 ML 125 ML IVCONT (18:42)
--- NOTE | 2025-07-06 19:14 | PHA.MEDREC ---
Addendum entered by Patrick Reyes PharmD 07/06/25 19:16: reviewed Original Note: Pharmacy Consult ? Medication Reconciliation Pharmacy has completed the medication reconciliation. 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 .
--- NOTE | 2025-07-06 19:17 | PC.NURSE ---
NG tube discontinued per surgical provider, see x ray note.
[2025-07-07 00:12] VITALS: BP 120/74; PULSE 80; RESP 20; TEMP 36.5; O2SAT 96
[2025-07-07] MEDS: Dextrose 5 % and Lactated Ring 1,000 ML 125 ML IVCONT ×3 (02:06→19:47)
[2025-07-07 03:59] VITALS: BP 115/68; PULSE 79; RESP 20; TEMP 36.6; O2SAT 96
[2025-07-07 06:15] LABS: MANUAL DIFF FLAG NO
--- NOTE | 2025-07-07 06:56 | PM.PNGS ---
Subjective Subjective Date of Service: 07/07/25 <Danyel Hawkins - Last Filed: 07/07/25 07:09> 07/07/25 <Ken Liu PA-C - Last Filed: 07/07/25 08:09> Interval history: 44YOF POD1 post incarcerated ventral hernia repair with mesh Overnight events pertinent for her NG tube being removed around 19:00 last night. She is still currently only eating ice chips per Dr Allen's instructions. Per RN she did very well overnight. She is up and ambulating to the bathroom and urinating normally. She did have one watery BM last night. Per PT she is doing well and not in any real pain, just experiencing soreness. She is endorsing a feeling of heartburn that she noticed after receiving a push of IV dilaudid. She is also endorsing 2/10 LUQ pain upon palpation, but denies any at baseline. She is fully alert and oriented in no acute distress <Danyel Hawkins - Last Filed: 07/07/25 07:09> Physical Exam Vital Signs: Vital Signs: Last Vital Signs Temp 97.9 F 07/07/25 03:59 Pulse 79 07/07/25 03:59 Resp 20 07/07/25 03:59 BP 115/68 07/07/25 03:59 Pulse Ox 96 07/07/25 03:59 O2 Del Method Nasal Cannula 07/07/25 03:59 O2 Flow Rate 2 07/07/25 03:59 BMI result Body Mass Index 45.8 <Danyel Hawkins - Last Filed: 07/07/25 07:09> Const: General: cooperative, healthy appearing and no acute distress <Danyel Hawkins - Last Filed: 07/07/25 07:09> Resp: Effort & Inspection: normal respiratory effort and able to speak in complete sentences <Ken Liu PA-C - Last Filed: 07/07/25 08:09> Auscultation: diminished lung sounds bilateral <Danyel Hawkins - Last Filed: 07/07/25 07:09> Cardio: Rate: regular rate <Danyel Hawkins - Last Filed: 07/07/25 07:09> Rhythm: regular rhythm <Danyel Hawkins - Last Filed: 07/07/25 07:09> Heart sounds: S1 normal heart sound present and S2 normal heart sound present <Danyel Hawkins - Last Filed: 07/07/25 07:09> GI: Other: Dressing in place from operation yesterday. No erythema or pain near the incision site. No leakage of the bandage. 2/10 LUQ pain to palpation. Rest of abdomen nontender. No hyper resonance to percussion <Danyel Hawkins - Last Filed: 07/07/25 07:09> Inspection: No distended <Ken Liu PA-C - Last Filed: 07/07/25 08:09> Objective Data Active Medications Hydromorphone HCl (Hydromorphone Hcl 0.5 Mg/0.5 Ml Syringe) 0.5 mg IVPUSH Q3H PRN; Protocol PRN Reason: Pain, Severe (Pain Scale 7-10) Last Admin: 07/07/25 05:13 Dose: 0.5 mg Documented By: PEÑA Acetaminophen (Ofirmev) 1,000 mg in 100 mls @ 400 mls/hr IV Q6H PRN PRN Reason: Pain, Mild (Pain Scale 1-3) Dextrose/Lactated Ringer's (D5lr) 1,000 mls @ 125 mls/hr IVCONT .Q8H [facility] Last Admin: 07/07/25 02:06 Dose: 125 mls/hr Documented By: PEÑA Ketorolac Tromethamine (Ketorolac Tromethamine 30 Mg/Ml Vial) 30 mg IVPUSH Q6H PRN PRN Reason: Pain, Mild (Pain Scale 1-3) Stop: 07/11/25 14:59 Last Admin: 07/06/25 18:38 Dose: 30 mg Documented By: JOHN Ondansetron HCl (Ondansetron Hcl 4 Mg/2 Ml Vial) 4 mg IVPUSH QID PRN PRN Reason: Nausea Sodium Chloride (0.9 % Sodium Chloride Flush 3 Ml Syringe) [facility] Last Admin: 07/07/25 00:34 Dose: Not Given Documented By: PEÑA Non-Admin Reason: IV Running <Danyel Hawkins - Last Filed: 07/07/25 07:09> Labs CBC & Chem 7: 07/07/25 05:15 07/07/25 05:15 <Danyel Sarabialivan - Last Filed: 07/07/25 07:09> Labs: Laboratory Results - last 24 hr 07/06/25 07/06/25 07/06/25 09:17 09:38 10:50 MCV 79.5 L MCH 26.9 L MCHC 33.8 RDW 16.9 H Plt Count 476 H MPV 10.3 Absolute Nucleated RBC 0.000 Nucleated RBC % (auto) 0.0 Anion Gap 19 Estim Creat Clear Calc 55.8 Estimated GFR 32 Random Glucose 148 H Calcium 10.5 H D Magnesium 2.2 Total Bilirubin 3.0 H AST 112 H ALT 157 H Alkaline Phosphatase 101 Total Protein 9.2 H Albumin 5.2 H Lipase 17 Beta HCG, Quant < 2 Hepatitis A IgM Ab Nonreactive Hep Bs Antigen Negative Hep Bs Antibody REACTIVE Hep B Core Total Ab Nonreactive Hepatitis C Ab (EIA) Nonreactive <Danyel Hawkins - Last Filed: 07/07/25 07:09> Procedures Date of Service Date of Service: 07/07/25 <Danyel Hawkins - Last Filed: 07/07/25 07:09> 07/07/25 <Ken Liu PA-C - Last Filed: 07/07/25 08:09> Progress Note: A&P Assessment and plan (1) Incisional hernia: Status: Acute <Danyel Hawkins - Last Filed: 07/07/25 07:09> (2) Hiatal hernia: Status: Acute <Danyel Hawkins - Last Filed: 07/07/25 07:09> (3) S/P repair of ventral hernia: Status: Acute <Danyel Hawkins - Last Filed: 07/07/25 07:09> Assessment and Plan: 44YOF POD1 from incarcerated ventral hernia repair with mesh She is doing clinically well as above Encourage to use spirometry ten times per hour Continue ambulating as tolerated Continue with pain control She may begin a clear liquid diet <Danyel Hawkins - Last Filed: 07/07/25 07:09> 44YOF POD1 from incarcerated ventral hernia repair with mesh She is doing clinically well as above Encourage to use spirometry ten times per hour Continue ambulating as tolerated Continue with pain control She may begin a clear liquid diet Patient seen and examined independently, I agree with the above assessment and plan. Mild decrease in the H/H this morning, appropriate post surgical changes. Critical low potassium this morning 2.9, likely related to low intake over the past few days. Will replete potassium this morning. Also will resume clear liquid diet which will hopefully help to improve her electrolytes, will continue to monitor. On exam the abdomen is largely soft and benign, some discomfort around the incision site. Dressings remain in place, no breakthrough bleeding. Will remove dressings tomorrow. Patient experiencing reflux symptoms, likely due to the large hiatal hernia, will try pepcid, possibly PPI if not controlled. ambulation and spirometry as tolerated start clear liquid diet potassium replacement will recheck BMP pain control, will add PO oxycodone now that she is starting clears, will DC toradol. Pepcid for reflux <Ken Liu PA-C - Last Filed: 07/07/25 08:09> Time Spent With Patient Time: Total time managing care of this patient today ____ minutes. <Danyel Hawkins - Last Filed: 07/07/25 07:09> Quality Stroke Does the patient have a stroke diagnosis?: No <Danyel Hawkins - Last Filed: 07/07/25 07:09> VTE Prior VTE?: No <Danyel Hawkins - Last Filed: 07/07/25 07:09> VTE Risk Level:: Surgical - moderate <Danyel Hawkins - Last Filed: 07/07/25 07:09> VTE Device Contraindication: N/A - Device Ordered <Danyel Hawkins - Last Filed: 07/07/25 07:09> VTE Drug Contraindication: Treatment Not Indicated <Danyel Hawkins - Last Filed: 07/07/25 07:09>
[2025-07-07 06:59] LABS: Hematocrit 35.7 % (37.0-47.0); Hemoglobin 12.0 g/dl (12.0-16.0); Imm Gran Abs Auto 0.03 X10*3/uL (0.00-0.03); Imm Gran Pct Auto 0.4 % (0.0-0.4); Lymphocytes Absolute Auto 0.7 X10*3/uL (1.2-4.9); Mean Corpuscular HGB Conc 33.6 g/dl (31.0-35.0); Mean Corpuscular Hemoglobin 27.0 pg (27.0-33.0); Mean Corpuscular Volume 80.2 fL (80.0-98.0); NRBC Abs Auto 0.000 X10*3/uL (0.0-0.012); NRBC Pct Auto 0.0 /100WBC (0.0-0.2); Platelet Count 300 X10*3/uL (160-400); Red Blood Count 4.45 X10*6/uL (4.20-5.50); White Blood Count 7.8 X10*3/uL (4.8-10.8)
--- NOTE | 2025-07-07 07:22 | PC.NURSE ---
Patient may have ice chips overnight per Dr. Obando.
[2025-07-07] MEDS: 0.9 % Sodium Chloride Flush 3 ML SYRINGE IVFLUSH ×2 (07:37→19:38)
[2025-07-07 07:38] LABS: Anion Gap 14 (12-20); Blood Urea Nitrogen 28 mg/dL (9-16); Calcium 8.0 mg/dL (8.4-10.2); Carbon Dioxide 29 mmol/L (22-29); Chloride 94 mmol/L (96-108); Creatinine Clr Calc Pharmacy 100.6; Estimated Glomerular Filt Rate > 60; Potassium 2.9 mmol/L (3.3-5.1); Sodium 134 mmol/L (135-145)
[2025-07-07 07:52] VITALS: BP 106/54; PULSE 83; RESP 16; TEMP 36.4; O2SAT 92
[2025-07-07] MEDS: Potassium Chloride Packet 20 MEQ PACKET 40 MEQ PO (08:05)
--- NOTE | 2025-07-07 08:15 | HO.POSTANES ---
Post Anesthesia Evaluation Post Anesthesia Evaluation Date of Service: 07/07/25 Vital Signs: Vital Signs Temp Pulse Resp BP Pulse Ox O2 Del Method O2 Flow Rate 07/07/25 07:52 97.5 F 83 16 106/54 L 92 Room Air 07/07/25 03:59 97.9 F 79 20 115/68 96 Nasal Cannula 2 07/07/25 00:12 97.7 F 80 20 120/74 96 Nasal Cannula 2 Anesthesia: General Mental Status: Awake Pain Control: Satisfactory Nausea/Vomiting: None Hydration: Adequate Anesthesia-Related Issues: No Anes. Related Issues
--- NOTE | 2025-07-07 15:06 | MHC.CM.PN ---
CM MET WITH PT AT BEDSIDE. 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 NO SERVICES OR DME. PT DECLINES COMPLETION OF A HCP AT THIS TIME. PCP IS A PROVIDER AT [facility]. PT STATES SHE JUST MET WITH [facility] [place] FINANCIAL COUNSELOR WHO IS WORKING ON HER INSURANCE. CM WILL F/U. DP: HOME, NO SERVICES ANTICIPATED. PT HAS OWN RIDE HOME. CM WILL CONTINUE TO FOLLOW FOR ANY CHANGE TO DC PLAN/NEEDS.
[2025-07-07 15:30] VITALS: BP 120/69; PULSE 88; RESP 16; TEMP 36.4; O2SAT 95
--- NOTE | 2025-07-07 16:45 | PC.NURSE ---
1630- Patient reporting acid reflux. Reports milk helps her heartburn. Patient on clear liquid diet. MONY Liu notified. Okayed to give patient a small amount of milk. Patient given milk with +effect. Tolerated well. No nausea or vomiting present.
[2025-07-07 19:22] VITALS: BP 140/82; PULSE 88; RESP 18; TEMP 36.5; O2SAT 94
[2025-07-08 03:22] VITALS: BP 123/73; PULSE 92; RESP 16; TEMP 36.4; O2SAT 93
[2025-07-08] MEDS: Dextrose 5 % and Lactated Ring 1,000 ML 125 ML IVCONT (03:34)
--- NOTE | 2025-07-08 03:39 | PC.NURSE ---
Pt asking for Nexium 24hr to help relieve heartburn. This RN contacted MD Sims. Omeprazole ordered once. When this RN went to administer medication, pt mentioned she took 2 Nexium 24hr pills that her son dropped off for her. Pt refused Omeprazole. Pt educated not to take medications without our knowledge. Pt educated on and encouraged to use incentive spirometer, but continues to be noncompliant and unmotivated. Pt refusing to ambulate outside of room.
[2025-07-08] MEDS: 0.9 % Sodium Chloride Flush 3 ML SYRINGE IVFLUSH ×2 (07:23→19:42)
[2025-07-08 07:44] VITALS: BP 106/51; PULSE 90; RESP 16; TEMP 36.7; O2SAT 92
[2025-07-08 09:50] LABS: Anion Gap 12 (12-20); Blood Urea Nitrogen 13 mg/dL (9-16); Calcium 8.4 mg/dL (8.4-10.2); Carbon Dioxide 31 mmol/L (22-29); Chloride 97 mmol/L (96-108); Creatinine Clr Calc Pharmacy 140.8; Estimated Glomerular Filt Rate > 60; Potassium 3.0 mmol/L (3.3-5.1); Sodium 137 mmol/L (135-145)
[2025-07-08] MEDS: KCl 20 mEq in 0.9 % Sodium ChL 20 MEQ/1,000 ML IV.SOLN 125 MEQ IVCONT (10:29)
--- NOTE | 2025-07-08 14:47 | PM.PNGS ---
Subjective Subjective Date of Service: 07/08/25 Interval history: Patient has been having problems with nausea and dry heaving. She says she had vomited some material. Doing a little bit better with Reglan and Zofran. Denying true chest pain. Just feeling abdominal pressure. Has had some loose stools but not passing a lot of gas. Says she is somewhat hungry Physical Exam Vital Signs: Vital Signs: Last Vital Signs Temp 98.1 F 07/08/25 07:44 Pulse 90 07/08/25 07:44 Resp 16 07/08/25 07:44 BP 106/51 L 07/08/25 07:44 Pulse Ox 92 07/08/25 07:44 O2 Del Method Room Air 07/08/25 07:44 O2 Flow Rate 2 07/07/25 03:59 BMI result Body Mass Index 45.8 Const: Other: Looks tired General: cooperative and acute distress mild Eyes: Other: Nonicteric GI: Other: Abdomen is soft obese incision site dressing looks good without any erythema or significant drainage Objective Data Active Medications Famotidine (Famotidine/Pf 20 Mg/2 Ml Vial) 20 mg IVPUSH DAILY [facility] On Hold: 07/07/25 21:41 Last Admin: 07/07/25 08:05 Dose: 20 mg Documented By: GRACY Hydromorphone HCl (Hydromorphone Hcl 0.5 Mg/0.5 Ml Syringe) 0.5 mg IVPUSH Q3H PRN; Protocol PRN Reason: Pain, Severe (Pain Scale 7-10) Last Admin: 07/07/25 15:22 Dose: 0.5 mg Documented By: GRACY Acetaminophen (Ofirmev) 1,000 mg in 100 mls @ 400 mls/hr IV Q6H PRN PRN Reason: Pain, Mild (Pain Scale 1-3) Last Infusion: 07/07/25 20:10 Dose: Infused Documented By: CARMENCITA Dextrose/Lactated Ringer's (D5lr) 1,000 mls @ 125 mls/hr IVCONT .Q8H [facility] Last Admin: 07/08/25 10:32 Dose: Not Given Documented By: GRACY Non-Admin Reason: Physician Held Med Potassium Chloride/Sodium Chloride (Kcl 20 Meq In 0.9 % Sodium Chl) 20 meq in 1,000 mls @ 125 mls/hr IVCONT .Q8H [facility] Last Infusion: 07/08/25 13:52 Dose: 125 mls/hr Documented By: GRACY Metoclopramide HCl (Metoclopramide Hcl 10 Mg/2 Ml Vial) 10 mg IVPUSH Q6H [facility] Last Admin: 07/08/25 13:48 Dose: 10 mg Documented By: GRACY Omeprazole (Omeprazole 40 Mg Capsule.Dr) 40 mg PO DAILY@0630 [facility] Last Admin: 07/08/25 06:03 Dose: 40 mg Documented By: CARMENCITA Ondansetron HCl (Ondansetron Hcl 4 Mg/2 Ml Vial) 4 mg IVPUSH QID PRN PRN Reason: Nausea Last Admin: 07/08/25 03:29 Dose: 4 mg Documented By: SUSIE Oxycodone HCl (Oxycodone Hcl Immed Release 5 Mg Tablet) 5 mg PO Q6H PRN PRN Reason: Pain, Moderate(Pain Scale 4-6) Sodium Chloride (0.9 % Sodium Chloride Flush 3 Ml Syringe) 3 ml IVFLUSH QSHIFT [facility] Last Admin: 07/08/25 07:23 Dose: 3 ml Documented By: GRACY Labs 07/07/25 05:15 07/08/25 09:02 Labs: Laboratory Results - last 24 hr 07/08/25 09:02 Hold Purple Top SEE NOTE Anion Gap 12 Estim Creat Clear Calc 140.8 Estimated GFR > 60 Random Glucose 123 H Calcium 8.4 Procedures Date of Service Date of Service: 07/08/25 Progress Note: A&P Assessment and plan (1) Small bowel obstruction: Status: Acute Plan Patient is 44-year-old female doing okay after small-bowel obstruction hernia repair surgery. Plan to just slowly increase her p.o. intake but she has been having more nausea dry heaving. She does have a significant paraesophageal hernia with a lot of her stomach in the chest but does not lying true chest pain. At this point do not want to put an NG-tube in think that she is doing okay. We will just slow down her p.o. intake and just do sips of clear liquids encourage her to ambulate and walk until she is passing better gas. I think some of her issues maybe secondary to the small bowel distention secondary to the incarcerated hernia rather than the paraesophageal hernia. However we should try to get her set up with the thoracic surgeon to have the repair of this hernia done relatively soon. She understands and agrees with the above plan. For the rest of today we will conservatively just do supportive care and maybe tomorrow feel us better then advanced some diet Time Spent With Patient Time: Total time managing care of this patient today ____ minutes. Quality Stroke Does the patient have a stroke diagnosis?: No VTE Prior VTE?: No VTE Risk Level:: Surgical - moderate VTE Device Contraindication: N/A - Device Ordered VTE Drug Contraindication: Treatment Not Indicated
[2025-07-08 15:28] VITALS: BP 116/56; PULSE 90; RESP 16; TEMP 36.6; O2SAT 94
[2025-07-08 20:00] VITALS: BP 106/66; PULSE 89; RESP 18; TEMP 36.6; O2SAT 97
[2025-07-09] MEDS: KCl 20 mEq in 0.9 % Sodium ChL 20 MEQ/1,000 ML IV.SOLN 125 MEQ IVCONT ×3 (01:17→21:05)
[2025-07-09 03:30] VITALS: BP 110/56; PULSE 88; RESP 18; TEMP 36.9; O2SAT 96
[2025-07-09 07:23] VITALS: BP 110/53; PULSE 83; RESP 16; TEMP 36.8; O2SAT 95
--- NOTE | 2025-07-09 11:50 | PC.NURSE ---
Approximately 1145- Dr. Tao in speaking with patient. Patient reports feeling hungry and currently denying nausea. Reports multiple BMs. Abdomen soft, +BSx4. Reports minimal flatus. Per Dr. Tao- okay to give patient toast with a small amount of butter and some milk. Patient advised to eat slowly and report any nausea, vomiting, abdominal pain, or other changes immediately. Patient verbalized understanding.
[2025-07-09 16:00] VITALS: BP 120/70; PULSE 83; RESP 18; TEMP 36.8; O2SAT 96
--- NOTE | 2025-07-09 19:13 | P.PNGS_ITS ---
Subjective Subjective Date of Service: 07/09/25 Interval history: pt feeling better less nauseated no dry heavings, afebrile, not much flatus but good bowel movements. Physical Exam 2 Vital Signs: Vital Signs: Last Vital Signs Temp 98.3 F 07/09/25 16:00 Pulse 83 07/09/25 16:00 Resp 18 07/09/25 16:00 BP 120/70 07/09/25 16:00 Pulse Ox 96 07/09/25 16:00 O2 Del Method Room Air 07/09/25 16:00 O2 Flow Rate 2 07/07/25 03:59 BMI result Body Mass Index 45.8 Const: General: cooperative and healthy appearing Resp: Auscultation: clear to auscultation bilaterally Cardio: Rate: regular rate Rhythm: regular rhythm GI: Other: abdomen soft less distended nontender incision ok Objective Data Active Medications Famotidine (Famotidine/Pf 20 Mg/2 Ml Vial) 20 mg IVPUSH DAILY [facility] On Hold: 07/07/25 21:41 Last Admin: 07/07/25 08:05 Dose: 20 mg Documented By: GRACY Hydromorphone HCl (Hydromorphone Hcl 0.5 Mg/0.5 Ml Syringe) 0.5 mg IVPUSH Q3H PRN; Protocol PRN Reason: Pain, Severe (Pain Scale 7-10) Last Admin: 07/07/25 15:22 Dose: 0.5 mg Documented By: GRACY Acetaminophen (Ofirmev) 1,000 mg in 100 mls @ 400 mls/hr IV Q6H PRN PRN Reason: Pain, Mild (Pain Scale 1-3) Last Infusion: 07/07/25 20:10 Dose: Infused Documented By: CARMENCITA Potassium Chloride/Sodium Chloride (Kcl 20 Meq In 0.9 % Sodium Chl) 20 meq in 1,000 mls @ 125 mls/hr IVCONT .Q8H [facility] Last Admin: 07/09/25 12:35 Dose: 125 mls/hr Documented By: GRACY Melatonin (Melatonin 3 Mg Tablet) 6 mg PO BEDTIME [facility] Last Admin: 07/08/25 20:38 Dose: 6 mg Documented By: CARMENCITA Metoclopramide HCl (Metoclopramide Hcl 10 Mg/2 Ml Vial) 10 mg IVPUSH Q6H [facility] Last Admin: 07/09/25 14:21 Dose: 10 mg Documented By: GRACY Ondansetron HCl (Ondansetron Hcl 4 Mg/2 Ml Vial) 4 mg IVPUSH QID PRN PRN Reason: Nausea Last Admin: 07/09/25 04:17 Dose: 4 mg Documented By: SUSIE Oxycodone HCl (Oxycodone Hcl Immed Release 5 Mg Tablet) 5 mg PO Q6H PRN PRN Reason: Pain, Moderate(Pain Scale 4-6) Pantoprazole Sodium (Pantoprazole Sodium 40 Mg/10 Ml Vial) 40 mg IVPUSH DAILY@0630 [facility] Last Admin: 07/09/25 06:01 Dose: 40 mg Documented By: CARMENCITA Sodium Chloride (0.9 % Sodium Chloride Flush 3 Ml Syringe) 3 ml IVFLUSH QSHIFT [facility] Last Admin: 07/09/25 17:13 Dose: Not Given Documented By: GRACY Non-Admin Reason: IV Running Sucralfate (Sucralfate 1 Gm Tablet) 1 gm PO BIDAC PRN PRN Reason: heartburn Last Admin: 07/08/25 19:04 Dose: 1 gm Documented By: CARMENCITA Labs 07/07/25 05:15 07/08/25 09:02 Procedures Date of Service Date of Service: 07/09/25 Progress Note: A&P Assessment and plan (1) Incisional hernia: Status: Acute Plan pt pod #3 s/p repair of incarcerated hernia and small bowel obstruction - improving - slow advance of diet - pt still with large paraesophageal hernia which may be causing some symptoms so should plan on getting that repaired sooner than later - will do a consult to thoracic surgery at [facility] [place]. Pt understands ang agrees with the plan Time Spent With Patient Time: Total time managing care of this patient today ____ minutes. Quality Stroke Does the patient have a stroke diagnosis?: No VTE Prior VTE?: No VTE Risk Level:: Surgical - moderate VTE Device Contraindication: N/A - Device Ordered VTE Drug Contraindication: Treatment Not Indicated
[2025-07-09 19:43] VITALS: BP 128/64; PULSE 86; RESP 17; TEMP 36.3; O2SAT 96
[2025-07-09] MEDS: 0.9 % Sodium Chloride Flush 3 ML SYRINGE IVFLUSH (21:04)
[2025-07-10 03:28] VITALS: BP 108/56; PULSE 83; RESP 14; TEMP 36; O2SAT 96
[2025-07-10] MEDS: KCl 20 mEq in 0.9 % Sodium ChL 20 MEQ/1,000 ML IV.SOLN 125 MEQ IVCONT (05:03)
[2025-07-10 07:17] VITALS: BP 102/55; PULSE 80; RESP 16; TEMP 36.2; O2SAT 95
[2025-07-10] MEDS: 0.9 % Sodium Chloride Flush 3 ML SYRINGE IVFLUSH (07:32)
--- NOTE | 2025-07-10 10:45 | PM.DS ---
DS: Providers Provider Date of Service: 07/10/25 <Marilee Jones PA-C - Last Filed: 07/11/25 14:26> Date of admission: 07/06/25 15:09 <Monserrat Tao MD - Last Filed: 07/13/25 10:13> Date of discharge: 07/10/25 <Marilee Jones PA-C - Last Filed: 07/11/25 14:26> Primary care physician: None Physician <Monserrat Tao MD - Last Filed: 07/13/25 10:13> Attending physician on admission: Jim Allen <Marilee Jones PA-C - Last Filed: 07/11/25 14:26> Attending physician on discharge: Monserrat Tao <Marilee Jones PA-C - Last Filed: 07/11/25 14:26> DS: Diagnosis Discharge Diagnosis (1) Incisional hernia: Status: Resolved <Monserrat Tao MD - Last Filed: 07/13/25 10:13> DS: Summary Hospital Course Hospital Course: HPI AT ADMISSION: Marlen Gong is a 44 year old female with a history of nephrolithiasis, obesity presenting to the ED with nausea and vomiting and epigastric abdominal pain since thursday. She initially thought this was related to alcohol, however has not resolved. She presented to the ED on 07/04/2025 with the same symptoms and was diagnosed with acute alcoholic gastritis, discharged. She states that her symptoms have not resolved. She experiences reflux like symptoms with n/v every 2 hours. Additionally she has been unable to tolerate diet. She states her vomit appears brown, taste like ?Paula?. Upon presentation in the ED she was tachycardic, she has leukocytosis 18.1, PRISCILLA likely related to vomiting. CT scan of the abdomen shows a high grade SBO, with proximal small bowel and gatric distention and a transition point distal to an infraumbilical hernia that contains bowel. Upon reviewing the CT the patient also has a large hiatal hernia. She was unaware of this and upon reviewing a previous Ct from 09/2024, this was present. Surgical history is significant for multiple hernia repairs in the past, she believes this was with mesh. She also had a hysterectomy, unsure of the approach used. She endorses occasional alcohol use, denies smoking. She has no known allergies HOSPITAL COURSE: She was admitted to the surgical service for further treatment of the SBO, incarcerated ventral hernia. CT reveals a loop of small bowel as a lead point of an obstruction and it was therefore recommended to proceed with reduction of the hernia and repair in the operating room. NGT was inserted preoperatively. On 07/06/25, repair of incarcerated ventral hernia with mesh was performed by Dr. Allen without immediate complication. She was found to have incarcerated small bowel within the hernia sac; bowel was initially dusky but after opening the hernia pinked up to normal. The patient tolerated the procedure well. She had an uncomplicated recovery course. NGT was removed following the procedure. She began to pass flatus and her diet was advanced to clear liquids on POD #1. She had difficulty with nausea and had slow advancing of her diet over the next couple of her days. She began to move her bowels. On the day of discharge, she felt well and was tolerating a solid diet without nausea or vomiting, had good pain control and was ambulating without difficulty. She had good GI function. She was hemodynamically stable. Her abdomen was benign with appropriate post op tenderness and clean incision. She felt ready for discharge. She was discharged to home on 07/10/25 in stable condition. She is to follow up in the office in 1 week. She does still have a paraesophageal hernia and will need a referral for paraesophageal hernia repair at her post op visit. She understands this. agree with the above <Monserrat Tao MD - Last Filed: 07/13/25 10:13> Status at Discharge Functional status at discharge: independent ambulation <Marilee Jones PA-C - Last Filed: 07/11/25 14:26> Overall status at discharge: patient is progressing back to baseline <Marilee Jones PA-C - Last Filed: 07/11/25 14:26> Time Attestation Discharge Coordination Time (in mins): 35 <HASEEB Lopez Last Filed: 07/11/25 14:26> Quality: Safe Use of Opioids Does Pt have an Active Cancer Diagnosis on the Problem List?: No <Marilee Jones PA-C - Last Filed: 07/11/25 14:26> Quality: Stroke Does the patient have a stroke diagnosis?: No <Marilee Jones PA-C - Last Filed: 07/11/25 14:26> Physical Exam Vital Signs: Vital Signs: Last Vital Signs Temp 97.2 F 07/10/25 07:17 Pulse 80 07/10/25 07:17 Resp 16 07/10/25 07:17 BP 102/55 L 07/10/25 07:17 Pulse Ox 95 07/10/25 07:17 O2 Del Method Room Air 07/10/25 07:17 O2 Flow Rate 2 07/07/25 03:59 BMI result Body Mass Index 45.8 <Monserrat Tao MD - Last Filed: 07/13/25 10:13> Const: Orientation/consciousness: patient oriented x3 <Marilee Jones PA-C - Last Filed: 07/11/25 14:26> GI: Other: incision clean <Marilee Jones PA-C - Last Filed: 07/11/25 14:26> Palpation (GI): Soft to palpation, Tenderness to palpation present (GI) (mild incisional) and no guarding <Marilee Jones PA-C - Last Filed: 07/11/25 14:26> Neuro: General: patient oriented x3 and moves all extremities <Marilee Jones PA-C - Last Filed: 07/11/25 14:26> DS: Data Data Completed and Pending Pending studies at discharge: Pending at discharge 07/06/25 16:24 Surgical [PTH] Routine <Monserrat Tao MD - Last Filed: 07/13/25 10:13> Discharge Plan Discharge Anticipated Discharge Date/Time: 07/10/25 10:37 <Monserrat Tao MD - Last Filed: 07/13/25 10:13> Patient Disposition: Home, Self-Care <Monserrat Tao MD - Last Filed: 07/13/25 10:13> Discharge Diagnosis: small bowel obstruction from ventral hernia <Monserrat Tao MD - Last Filed: 07/13/25 10:13> small bowel obstruction from ventral hernia <Marilee Jones PA-C - Last Filed: 07/11/25 14:26> Referrals: Physician,None [Primary Care Provider, Medical] - 1 Week <Monserrat Tao MD - Last Filed: 07/13/25 10:13> Discharge Medications: New oxycodone 5 mg Tablet 5 mg PO Q6H PRN (Reason: Pain, Moderate(Pain Scale 4-6)) Qty: 8 0RF Rx Instructions: Partial Fill upon patient request. Continued omeprazole 40 mg capsule,delayed release(DR/EC) 40 mg PO DAILY@0630 <Monserrat Tao MD - Last Filed: 07/13/25 10:13> Discharge Orders: Discharge Order (Routine); Ordered 07/10/25 Ordered By: Monserrat Tao <Monserrat Tao MD - Last Filed: 07/13/25 10:13> Activity on Discharge: No heavy lifting <Monserrat Tao MD - Last Filed: 07/13/25 10:13> No heavy lifting <Marilee Jones PA-C - Last Filed: 07/11/25 14:26> Stand Alone Forms: Patient Portal Discharge page <Monserrat Tao MD - Last Filed: 07/13/25 10:13> Print Language: Pakistani <Monserrat Tao MD - Last Filed: 07/13/25 10:13> Care Plan Goals: increase activity and slow increase of diet. Need to see Thoracic surgery for consultation Repair of Paraesophageal hernia - postop check will do referral to [facility] <Monserrat Tao MD - Last Filed: 07/13/25 10:13> Health Concerns: fever chills nausea and vomiting and increased pain call MD redness at wounds <Monserrat Tao MD - Last Filed: 07/13/25 10:13> Plan of Treatment: slow advance diet - many small meals throughout the day can shower and get incisions wet <Monserrat Tao MD - Last Filed: 07/13/25 10:13> Assessment: Pt doing well - tolerating po diet no nausea now urinating well and having bowel movements and passing gas incisions look great <Monserrat Tao MD - Last Filed: 07/13/25 10:13> Discharge Date/Time: 07/10/25 12:21 <Monserrat Tao MD - Last Filed: 07/13/25 10:13>
--- NOTE | 2025-07-10 10:56 | MHC.CM.PN ---
Patient medically cleared for dc home self care via private transport.
[2025-07-10 12:17] VITALS: BP 116/57; PULSE 79; RESP 18; TEMP 36.6; O2SAT 94
== END 2025-07-10 12:21 | disposition home or self-care (01) | DRG 227 ==
LOC: HO.ED 15:02 → HO.EDOVER 15:10 → HO.S3 15:27
PROVIDERS: Emergency Medicine; Physician Assistant; Surgery; Admitting Provider Physician Assistant Surgical; Emergency Provider Emergency Medicine; PCP Internal Medicine; Visit Provider Physician Assistant Surgical
PROC: 0WUF0JZ Supplement Abdominal Wall with Synthetic Substitute, Open Approach (ICD-10-PCS; CPT 49592; principal; 2025-07-06 15:30)
DX: K43.6 Other and unspecified ventral hernia with obstruction, without gangrene (principal); N17.9 Acute kidney failure, unspecified; K44.0 Diaphragmatic hernia with obstruction, without gangrene
CPT/HCPCS: 49592; 36415; 71045; 74176; 76705; 80048; 80053; 83690; 83735; 84702; 85025; 85027; 86704; 86706; 86709; 86803; 87340; 88302; 99221; 99285; C1781; C9088; J0131; J0330; J0690; J1100; J1171; J1200; J1308; J1885; J2003; J2270; J2371; J2405; J2470; J2704; J2765; J3010; J3480; J7120

== ENCOUNTER → 2025-07-06 10:32 | Outpatient (BNV) | payer MEDICAID, SELFPAY | PROVIDERS: Emergency Provider Emergency Medicine; Visit Provider Radiology Diagnostic Radiology | DX: K56.609 Unspecified intestinal obstruction, unspecified as to partial versus complete obstruction (principal); N20.0 Calculus of kidney; J98.11 Atelectasis; R10.11 Right upper quadrant pain; R74.01 Elevation of levels of liver transaminase levels; R91.8 Other nonspecific abnormal finding of lung field; J98.6 Disorders of diaphragm; Z97.8 Presence of other specified devices | CPT/HCPCS: 71045; 74176; 76705 ==

== ENCOUNTER → 2025-07-06 15:09 | Outpatient (BNV) | payer MEDICAID, SELFPAY | PROVIDERS: Admitting Provider Physician Assistant Surgical; Emergency Provider Emergency Medicine; Visit Provider Surgery | DX: K43.6 Other and unspecified ventral hernia with obstruction, without gangrene (principal) | CPT/HCPCS: 49592; 99024; 99223; 99232 ==

== ENCOUNTER 2025-07-28 11:19 | Outpatient (AMB) | payer MEDICAID, SELFPAY ==
--- OUTSIDE RECORDS SUMMARY | 2025-07-27 10:30 | XMS_ITS | Encounter Summary ---
Author Organization [facility] Address [address] [place] [address] Care Team Providers Care Environmental Air Specialist Name Role Phone Margret Lopez MD Primary Care Prov ider Reason for Visit * Reason Comments Consult New patient * Consultation (Routine) - Authorized Specialty Diagnoses / Procedures Referred By Gale merrill Referred To Contact Bariatrics Diagnoses Morbid obesity with BMI of 40.0-44.9, adult (CMS/HCC V24, CMS/HCC V28) Deanne Jack PA [address] [place] [address] Phone: tel: fax: Bariatric Surgery - [address] [phone] Phone: tel: fax: Referral ID Status Reason Start Date Expiration Date Visits Requested Visits Authorized [id number] Authorized Specialty Services Required 4 10/31/2025 1 1 Encounter Details Date Type Department Care Team ([facility] Contact Info) Description 07/27/2025 10:30 AM EDT Consult Bariatric Surgery - [address] [phone] Megan Del Real MD [address] [place] [phone] Hyperglycemia (Primary Dx); Morbid obesity with BMI of 40.0-44.9, adult (CMS/HCC V24, CMS/HCC V28) Social History Tobacco Use Types Packs/Day Years Used Date Smoking Tobacco: Never Smokeless Tobacco: Never Alcohol Use Standard Drinks/Week Comments Yes 0 [...] for your loved ones. For example, child development director or elderly care for an older adult? [...] on file Sexual Orientation Not on file documented as of this encounter Last Filed Vital Signs Vital Sign Reading Time Taken Comments Blood Pressure 109/74 07/27/2025 11:06 AM EDT Pulse 106 07/27/2025 11:06 AM EDT Temperature 36.4 C (97.6 F) 07/27/2025 11:06 AM EDT Respiratory Rate - - Oxygen Saturation - - Inhaled Oxygen Concentration - - Weight 130 kg (286 lb) 07/27/2025 11:06 AM EDT Height 170.2 cm (5' 7 ) 07/27/2025 11:06 AM EDT Body Mass Index 44.79 07/27/2025 11:06 AM EDT documented in this encounter Ordered Prescriptions Prescription Sig Dispense Quantity Refills Last Filled Start Date End Date phentermine 15 mg capsuleIndications :Morbid obesity with BMI of 40.0-44.9, adult (CMS/HCC V24, CMS/HCC V28) Take 1 capsule (15 mg total) by mouth 1 (one) time each day before breakfast. Max Daily Amount: 15 mg 30 each 07/27/2025 5 topiramate (TOPAMAX) 25 mg tabletIndications: Morbid obesity with BMI of 40.0-44.9, adult (CMS/HCC V24, CMS/HCC V28) Take 1 tablet (25 mg total) by mouth at bedtime for 28 days. 28 each 07/27/2025 5 documented in this encounter Progress Notes * Megan Del Real MD - 07/27/2025 10:30 AM EDT Referring physician: Margret Arana MD Ms. Cheatham is a 44 y.o. year old female who presents for surgical consultation regarding obesity. HPI: Ms. Cheatham Onset: Has gained 60 lbs in a year. Was 125 lbs end of HS. Usual weight was 125 lbs. Factors: and less activity after hernia operations. Using air fryer. Measuring portions. TAG/BSO. Has not been getting estrogen replacement. Previous attempts: Since Aug no soda. Has not lost. Eating habits: Hardly does not eat Soda. Was drinking soda 5 times a day. Only sips now. Snacks on chips. Skips meals. Rice, beans, pasta. Exercise: Has not been walking a lot. Tired, SOB. Comorbidities: FBS 110. BMI: 44.79. ROS: GENERAL: fatigue. HEENT: No changes in hearing or vision, no nose bleeds or other nasal problems. NECK: No lumps, goiter, pain or significant neck swelling RESPIRATORY: shortness of breath CARDIOVASCULAR: leg swelling . GI: No abdominal discomfort, nausea, vomiting, or change in bowel habits. : No dysuria, frequency or incontinence. SKIN: No lesions, rash or itching. HEMATOLOGY: No prolonged bleeding, easy bruisability. LYMPHOLOGY No swollen nodes. MUSCULOSKELETAL: No abnormalities. NEURO: No abnormalities. All other systems reviewed which are negative. PAST MEDICAL HISTORY: Patient Active Problem List Diagnosis ASCUS with positive high risk HPV cervical Heartburn Low grade squamous intraepith lesion on cytologic smear cervix (lgsil) Ventral hernia, recurrent Class 3 severe obesity without serious comorbidity with body mass index (BMI) of 40.0 to 44.9 in adult ([facility] V24, [facility] V28) Grief PAST SURGICAL HISTORY: Past Surgical History: Procedure Laterality Date HERNIA REPAIR 2007, 2008, 2009, 2011 ventral PERCUTANEOUS NEPHROLITHOTRIPSY ROBOTIC ASSISTED HYSTERECTOMY 06/22/2024 SOCIAL HISTORY: Social History Tobacco Use Smoking status: Never Smokeless tobacco: Never Substance Use Topics Alcohol use: Yes Comment: < 1 x per month FAMILY HISTORY: Family History Problem Relation Name Age of Onset Asthma Mother fibromyalgia Alzheimer's disease Maternal Grandmother Stroke Maternal Grandfather Other (Other: ovarian cancer) Mother's side 37 mom's cousin Breast cancer Neg Hx Colon cancer Neg Hx Family Status Relation Name Status Mother Alive MGM Alive MGF Mother's kevin (Not Specified) Neg Hx (Not Specified) No partnership data on file MEDICATIONS: There are no discontinued medications. ACTIVE MEDICATIONS: No outpatient medications have been marked as taking for the 07/27/25 encounter (Consult) with Megan Del Real MD. ALLERGIES: Allergies Allergen Reactions Levonorgestrel-Ethinyl Estrad Seasonal Allergies PHYSICAL EXAM: Visit Vitals BP 109/74 Pulse 106 Temp 36.4 ??C (97.6 ??F) (Temporal) Ht 1.702 m (67 ) Wt 130 kg (286 lb) BMI 44.79 kg/m?? OB Status Hysterectomy Smoking Status Never BSA 2.36 m?? APPEARANCE: Alert and oriented and in no acute distress EYES: Conjunctiva normal and sclera normal and anicteric. NECK: Neck supple with no adenopathy. HEART: No JVD. LUNG: No retractions. LYMPH NODES: No gross cervical or clavicular lymphadenopathy. ABDOMEN: , non-distended, EXTREMITIES: Extremities warm and well perfused without clubbing, cyanosis, or edema. SKIN: Skin color and texture normal. No rashes. NEUROLOGIC: Alert and oriented ??3. No obvious motor deficits in the extremities. LABS/IMAGING: @AORD@ ASSESSMENT: 1. Hyperglycemia 2. Morbid obesity with BMI of 40.0-44.9, adult ([facility] V24, [facility] V28) Ambulatory referral to Weight Management PLAN: 1. I discussed with the patient the different procedures available including the sleeve gastrectomy, the gastric bypass and the single anastomosis duodenal ileal bypass with sleeve. Indications, benefits, risks and complications were discussed. I also discussed with the patient the different medical options. I explained the mechanism of action, the potential adverse effects and the expected results. These included phentermine, topiramate, naltrexone, bupropion and the different GLP-1 medications. The patient has decided that she wants to try incretin-based therapy before bariatric surgery. If the patient is not able to lose a significant amount of weight, she is less she agreed to proceed with the bariatric surgery program. 2. I reviewed with the patient different techniques to change the behavior towards food. Written material was given to the patient can review these tools. I explained to the patient the need for night good sleep; the benefits of exercising half an hour to an hour a day, 4 to 5 days a week; and the importance of self-monitoring by weighing 3-5 times a week, and importance of practicing mindfulnesswhen eating: what, how much and why. The patient is a good candidate for medical weight management given a BMI of 44.79. She remains dedicated to improving their health and quality of life as well as remaining physicallyactive. I have had a long discussion with the patient regarding medical weight management which includes both oral medications including stimulants/appetite suppressants versus injectable GLP-1 medications. Oral stimulant suppressants are meant to be used short-term Studies have shown that obesity needs to be treated as a chronic condition, as such the patient mayrequire multiple modalities of treatment along the way We have decided to proceed with Phentermine/ and topiramate The risks and benefits of this medication were discussed in length with the patient. Benefits include weight loss and overall healthier lifestyle with he hopes of improving any co morbid conditions. Expected weight loss around 10% of starting weight. Risks include but are not limited too nausea/vomiting, dizziness, dry mouth, heart palpitations, tachycardia, hypertension, paresthesia, cognitive disturbances, dysgeusia, kidney stones, metabolic acidosis, defects. We have also discussed the potential for potential dependency given the stimulant quality of the medication. We discussed that this medication shouldn't be used long-term and that obesity will be treated as achronic condition; if and when patient stops this medication weight may come back. May need subsequent treatment in the future as noted above The patient will follow-up with the office every 4 weeks for a weight check and potential dose titration. F/U in the office in 3 months. Monitor BP The patient will also continue to follow-up with the dietitian to ensure that they are working on proper eating habits in addition to using the medication. The patient will let us know in few weeks if the medication is being effective or if the patient ishaving side effects. The dose will be adjusted depending upon the response and the presence of sideeffects. Follow-up in 3 months. documented in this encounter Plan of Treatment Upcoming Encounters Date Type Department Care Team (Late st Contact Info) Description 11/06/2025 7:30 AM EST Office Visit Adult Medicine [address] [phone] Margret Lopez MD [address] [place] [address] 01/16/2026 9:45 AM EDT Office Visit Bariatric Surgery [address] [place] [phone] Megan Del Real MD [address] [place] [phone] documented as of this encounter Results * Thyroid stimulating hormone (07/27/2025 11:47 AM EDT) [facility] TSH 2.03 0.40 - 4.00 mcIU/mL LAB CHEMISTRY METHOD 07/27/2025 3:55 PM EDT [facility] Blood Venous blood specimen / Unknown Venipuncture / Unknown 07/27/2025 11:47 AM EDT 07/27/2025 11:47 AM EDT us Megan Del Real MD LAB BLOOD ORDERABLES Final R esult [facility] [address] [place] [address], * (ABNORMAL) Hepatic function panel (07/27/2025 11:47 AM EDT) [facility] Total Protein 7.2 6.0 - 8.0 g/dL LAB CHEMISTRY METHOD 07/27/2025 2:59 PM EDT [facility] Albumin 3.3 3.2 - 5.0 g/dL LAB CHEMISTRY METHOD 07/27/2025 2:59 PM EDT [facility] Total Bilirubin 1.0 0.0 - 1.4 mg/dL LAB CHEMISTRY METHOD 07/27/2025 2:59 PM EDT [facility] Bilirubin, Direct 0.3 0.0 - 0.3 mg/dL LAB CHEMISTRY METHOD 07/27/2025 2:59 PM EDT [facility] Bilirubin, Indirect 0.7 0.0 - 1.1 mg/dL LAB CHEMISTRY METHOD 07/27/2025 2:59 PM EDT [facility] ALT (SGPT) 80(H) 10 - 60 unit/L LAB CHEMISTRY METHOD 07/27/2025 2:59 PM EDT [facility] Comment:Results verified by repeat testing AST (SGOT) 63(H) 10 - 42 unit/L LAB CHEMISTRY METHOD 07/27/2025 2:59 PM EDT [facility] Comment:Results verified by repeat testing Alkaline Phosphatase 106 42 - 121 unit/L LAB CHEMISTRY METHOD 07/27/2025 2:59 PM EDT [facility] Blood Venous blood specimen / Unknown Venipuncture / Unknown 07/27/2025 11:47 AM EDT 07/27/2025 11:47 AM EDT us Megan Del Real MD LAB BLOOD ORDERABLES Final R esult [facility] [address] [place] [address], [place] [phone] * Hemoglobin A1c (07/27/2025 11:47 AM EDT) Hemoglobin A1C 6.0 <6.5 % LAB CHEMISTRY METHOD 07/27/2025 9:58 PM EDT [facility] Mean Bld Glu Estim. 126 mg/dL LAB CHEMISTRY METHOD 07/27/2025 9:58 PM EDT [facility] Blood Venous blood specimen / Unknown Venipuncture / Unknown 07/27/2025 11:47 AM EDT 07/27/2025 11:47 AM EDT us Megan Del Real MD LAB BLOOD ORDERABLES Final R esult [facility] [address] [place] [address], [place] [phone] documented in this encounter Visit Diagnoses Diagnosis Hyperglycemia- Primary Other abnormal glucose Morbid obesity with BMI of 40.0-44.9, adult (CMS/HCC V24, CMS/HCC V28) documented in this encounter Orders Outpatient Referral Count Last Ordered Date Fir st Ordered Date AMB REFERRAL TO WEIGHT MANAGEMENT 1 025 documented in this encounter Care Teams Environmental Air Specialist Relationship Specialty Start Date End Date Margret Lopez MD [address] [place] [phone] PCP - General Internal Medicine 10/31/24 documented as of this encounter
--- NOTE | 2025-07-28 11:20 | A.OFFVIS_ITS ---
Vital Signs 07/28/25 11:37 Height 5 ft 6 in Weight 284 lb 6.341 oz BMI 45.9 BP 120/72 Blood Pressure Location Lt brachial Position Sitting Intake Visit Reasons: s/p Repair incarcerated ventral hernia Intake Note: Patient is seen in office for post op assessment post repair of incarcerated ventral hernia with mesh. Pt c/o: admits to sore and tender surgery:07/06/25 Service Station Cashier Required: No Accompanied by: Self / Same As Patient Allergies No Known Allergies Allergy (Verified 07/28/25 11:36) Medication List - Last Reconciled 07/28/25 by Jim Allen MD omeprazole 40 mg PO DAILY@0630 oxycodone 5 mg PO Q6H PRN HPI Comments Details: 44-year-old female patient returning following repair of an incarcerated ventral hernia on 07/06/2025. She has some incisional pain and occasional discharge from the incision at the site of the suzanne. She is eating well and denies any difficulties with the bowels. She returns today for a wound check. [facility] Medical History Hernia No known health problems Surgical History History of partial hysterectomy Hx of hernia repair Family History Mother Asthma Fibromyalgia Father No problems noted. Son No problems noted. Daughter No problems noted. 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 There is some pulling of the suzanne in the lower incision but no evidence of underlying infection. Suzanne were removed and Steri-Strips applied. Inspection: Yes normal to inspection Palpation (GI): Soft to palpation, nontender, no guarding and not rigid Neuro General: patient oriented x3 Extrem General: Yes no pedal edema Assessment & Plan Assessment & Plan (1) S/P repair of ventral hernia: Code(s): Z98.890 - Other specified postprocedural states; Z87.19 - Personal history of other diseases of the digestive system Category: Surgical Plan: Patient tolerated the repair of a ventral hernia well without evidence of recurrence or infection. Suzanne removed today and Steri-Strips applied. She will return in 1 month for follow-up examination. She should avoid lifting greater than 10 lb for one-month following the surgery. (2) Hiatal hernia: Code(s): K44.9 - Diaphragmatic hernia without obstruction or gangrene Category: Medical Plan: Patient will be scheduled with a evaluation by Dr. Delphine Calvin in September for possible repair of the diaphragmatic hernia. Coding Level of Care Code Est Pt Level 3 (25114) Diagnoses S/P repair of ventral hernia Z98.890; Z87.19 Hiatal hernia K44.9
[2025-07-28 11:37] VITALS: BP 120/72; BMI 45.9
--- OUTSIDE RECORDS SUMMARY | 2025-07-28 12:00 | XMS_ITS | Clinical Summary ---
Author Organization [address] Address [address] [place] [phone] Phone Care Team Providers Care Manager Program Management Name Role Phone Margret Lopez MD Primary [...] the evening. 30 each 1 01/25/2025 Active topiramate (TOPAMAX) 25 mg tabletIndicatio ns:Morbid obesity with BMI of 40.0-44.9, adult (CMS/[facility] V24, CMS/[facility] V28) Take 1 tablet (25 mg total) by mouth at bedtime for 28 days. 28 each 07/27/2025 5 Active phentermine 15 mg capsuleIndicati ons:Morbid obesity with BMI of 40.0-44.9, adult (CMS/HCC V24, CMS/[facility] V28) Take 1 capsule (15 mg total) by mouth 1 (one) time each day before breakfast. Max Daily Amount: 15 mg 30 each 07/27/2025 5 Active Active Problems Problem Noted Date Diagnosed Date Grief 10/31/2024 Class 3 severe obesity witho ut serious comorbidity with body mass index (BMI) of 40.0 to 44.9 in adult (CMS/HCC V24, CMS/[facility] V28) 09/14/2020 Low grade squamous intraepit h [...] 12/10/2012 Overview (10/11/2024): X3 surgeries. Dr. Johansen Encounters Date Type Department Care Team Description 07/27/2025 10:30 AM EDT Consult Bariatric Surgery - [address] [place] [phone] Megan Del Real MD Hyperglycemia (Primary Dx); Morbid obesity with BMI of 40.0-44.9, adult ([facility] V24, [facility] V28) from Last 3 Months Immunizations Name Administration Dates Next Due MMR, [...] Medical History Date Comments Heartburn Morbid obesity ([facility] V24, [facility] V28) Family History Medical History Relation Name [...] your loved ones. For example, child development assistant or elderly care for an older adult? [...] F) 07/27/2025 11:06 AM EDT Respiratory Rate 18 01/25/2025 3:40 PM EDT Oxygen Saturation 97% 01/25/2025 3:40 PM EDT Inhaled Oxygen Concentration - - Weight 130 kg (286 lb) 07/27/2025 11:06 AM EDT Height 170.2 cm (5' 7 ) 07/27/2025 11:06 AM EDT Body Mass Index 44.79 07/27/2025 11:06 AM EDT Plan of Treatment Upcoming Encounters Date Type Department Care Team (Late st Contact Info) Description 11/06/2025 7:30 AM EST Office Visit Adult Medicine [facility] [address] [place], [place] [phone] Margret Lopez MD [address] [place], [place] 01/16/2026 9:45 AM EDT Office Visit Bariatric Surgery [address] [place] [phone] Megan Del Real MD [address] [place] [phone] Health Maintenance Due Date Last Done Comments Breast Cancer Screening 1980 Hepatitis B Vaccines (1 of 3 - 19+ 3-dose series) 1999 Depression Screening 11/09/2024 05/31/2024 Influenza Vaccine (#1) 2025 Cervical Cancer Screening: HPV 07/23/2025 07/23/2020 Social Influencers of Health Screening 10/31/2025 10/31/2024 DTaP,Tdap,and Td Vaccines (2 - Td or Tdap) 05/03/2028 05/03/2018 Cholesterol Screening (Lipid Panel) 02/02/2029 02/03/2024 RSV Immunization Adult Patients (1 - 1-dose 75+ series) 2055 MMR Vaccines Aged Out 06/29/2019 No longer [...] Procedure Name Priority Date/Time Associated Diagnosis Comments HEPATIC FUNCTION PANEL Routine 11:47 AM EDT Morbid obesity with BMI of 40.0-44.9, adult ([facility]/HCC V24, CMS/[facility] V28) HEMOGLOBIN A1C Routine 07/27/2025 11:47 AM EDT Hyperglycemia THYROID STIMULATING HORMONE Routine 07/27/2025 11:47 AM EDT Morbid obesity with BMI of 40.0-44.9, adult (CMS/HCC V24, CMS/HCC V28) HEPATITIS C ANTIBODY Routine 10/31/2024 9:03 AM [...] Recently Relevant to Health Maintenance Results * Thyroid stimulating hormone (07/27/2025 11:47 AM EDT) Pathologist [facility] TSH 2.03 0.40 - 4.00 mcIU/mL LAB CHEMISTRY METHOD 07/27/2025 3:55 PM EDT [facility] Blood Venous blood specimen / Unknown Venipuncture / Unknown 07/27/2025 11:47 AM EDT 07/27/2025 11:47 AM EDT Megan Del Real MD LAB BLOOD ORDERABLES Final R esult [facility] [address] [place] [address], [place] [phone] * Hemoglobin A1c (07/27/2025 11:47 AM EDT) [facility] Hemoglobin A1C 6.0 <6.5 % LAB CHEMISTRY METHOD 07/27/2025 9:58 PM EDT [facility] Mean Bld Glu Estim. 126 mg/dL LAB CHEMISTRY METHOD 07/27/2025 9:58 PM EDT [facility] Blood Venous blood specimen / Unknown Venipuncture / Unknown 07/27/2025 11:47 AM EDT 07/27/2025 11:47 AM EDT us Megan Del Real MD LAB BLOOD ORDERABLES Final R esult [facility] [address] [place] [address], [place] [phone] * (ABNORMAL) Hepatic function panel (07/27/2025 11:47 AM EDT) Total Protein 7.2 6.0 - 8.0 g/dL LAB CHEMISTRY METHOD 07/27/2025 2:59 PM EDT [facility] Albumin 3.3 3.2 - 5.0 g/dL LAB CHEMISTRY METHOD 07/27/2025 2:59 PM EDT [facility] Total Bilirubin 1.0 0.0 - 1.4 mg/dL LAB CHEMISTRY METHOD 07/27/2025 2:59 PM EDT [facility] Bilirubin, Direct 0.3 0.0 - 0.3 mg/dL LAB CHEMISTRY METHOD 07/27/2025 2:59 PM EDT [facility] Bilirubin, Indirect 0.7 0.0 - 1.1 mg/dL LAB CHEMISTRY METHOD 07/27/2025 2:59 PM EDT [facility] ALT (SGPT) 80(H) 10 - 60 unit/L LAB CHEMISTRY METHOD 07/27/2025 2:59 PM EDT [facility] Comment:Results verified by repeat testing AST (SGOT) 63(H) 10 - 42 unit/L LAB CHEMISTRY METHOD 07/27/2025 2:59 PM EDT [facility] Comment:Results verified by repeat testing Alkaline Phosphatase 106 42 - 121 unit/L LAB CHEMISTRY METHOD 07/27/2025 2:59 PM EDT [facility] Blood Venous blood specimen / Unknown Venipuncture / Unknown 07/27/2025 11:47 AM EDT 07/27/2025 11:47 AM EDT us Megan Del Real MD LAB BLOOD ORDERABLES Final R esult Performing Organization Address [facility]/ZIP Co de Phone Number [facility] [address] [place] [address], [place] [phone] * Hepatitis C antibody (10/31/2024 9:03 AM EST) Hepatitis C Antibody Negative Negative LAB CHEMISTRY METHOD 10/31/2024 1:47 PM EST [facility] Blood Venous blood specimen / Unknown Venipuncture / Unknown 10/31/2024 9:03 AM EST 10/31/2024 9:03 AM EST us Deanne SYKES LAB BLOOD ORDERABLES Final Resul t Performing Organization Address [facility] Co de Phone Number [facility] [address] [place] [address], [place] [phone] * HIV 1,2 antibody, p24 antigen with reflex to differentiation (10/31/2024 9:03 AM EST) Pathologist [facility] HIV Combo AB/AG Negative Negative LAB CHEMISTRY METHOD 10/31/2024 1:47 PM EST [facility] Blood Venous blood specimen / Unknown Venipuncture / Unknown 10/31/2024 9:03 AM EST 10/31/2024 9:03 AM EST Narrative [facility] - 10/31/2024 1:47 PM EST This assay is a 4th generation assay allowing for earlier detection of HIV infection by detecting the presence of the HIV-1 p24 antigen as well as the traditional antibodies to HIV type 1 (including group O) and type 2. Use of a 4th generation assay is the current CDC recommendation for HIV screening. us Deanne SYKES LAB BLOOD ORDERABLES Final Resul t Performing Organization Address [facility] Co de Phone Number [facility] [address] [place] [address], * Hm Depression Screening (05/31/2024) Pathologist [facility] Depression Screening abstracted Historical Provider HEALTH MAINTENANCE Final Result * Lipid panel (02/03/2024) [facility] LDL/HDL Ratio 3 0 - 4 Triglycerides 78 0 - 150 mg/dL Cholesterol 140 0 - 200 mg/dL HDL 41 >=40 mg/dL LDL Cholesterol 84 0 - 100 mg/dL Blood Venous blood specimen / Unknown Historical Provider LAB BLOOD ORDERABLES Jacquelyn l Result * Cervical Cancer Screening: HPV (07/23/2020) [facility] Cervical Cancer Screening: HPV no interpretation , abstracted Historical Provider HEALTH MAINTENANCE Final Result from Last 3 Months or Most Recently Relevant to Health Maintenance Insurance [facility] Care Teams Manager Program Management Relationship Specialty Start Date End Date Margret Lopez MD [address] [place] [phone] PCP - General Internal Medicine 10/31/24
== END 2025-07-28 11:38 | disposition home or self-care (01) ==
LOC: HO.HGS 11:20
PROVIDERS: PCP Internal Medicine; Visit Provider Surgery
DX: Z98.890 Other specified postprocedural states (principal); Z87.19 Personal history of other diseases of the digestive system; K44.9 Diaphragmatic hernia without obstruction or gangrene
CPT/HCPCS: 99213

== ENCOUNTER → 2025-07-28 11:19 | Outpatient (BNVA) | payer OTHER, SELFPAY | PROVIDERS: PCP Internal Medicine; Visit Provider Surgery | DX: Z98.890 Other specified postprocedural states (principal); Z87.19 Personal history of other diseases of the digestive system | CPT/HCPCS: 99212 ==

== ENCOUNTER 2025-08-04 10:27 | Outpatient (AMB) | payer OTHER, SELFPAY ==
--- NOTE | 2025-08-04 10:29 | MHC.OFFVIS ---
Vital Signs 08/04/25 10:40 Height 5 ft 6 in Weight 283 lb BMI 45.7 BP 117/63 Blood Pressure Location Lt brachial Position Sitting Pulse 99 Intake Visit Reasons: wound/stitches check Intake Note: Patient being seen this morning concerned with wound healing. Patient c/o: lower abdominal scar oozing. Discharge is between yellowish, clear liquid. Patient concerned because she is due to go back to work next week. Woke up with bandage and gauze completely soaked. Denies pain. NANCY: Dr. Allen 07-28-2025. HX: Repair of incarcerated ventral hernia with mesh~ 07-06-2025 soaked. Insurance Claims Processor Required: No Allergies No Known Allergies Allergy (Verified 07/28/25 11:36) HPI HPI wound/stitches check: Details: 44-year-old female who presents today with concern regarding drainage from her incision site. She had a repair of an incarcerated ventral hernia on 07/06/[address] Allen. She tolerated the procedure well and was doing well following. She reports she began to notice yellow tinged drainage from the bottom of the incision at the beginning of the week. Her mom is a retired RN and placed new steri strips on the incision and covered it with gauze. She woke up this morning and the dressing was saturated. She became concerned and wanted to be seen prior to starting work. She denies redness or increased warmth at the incision site. She denies fever, chills, nausea, vomiting, diarrhea. She denies increasing pain. [facility] Medical History Hernia No known health problems Surgical History (Updated 08/04/25 @ 11:02 by Marilee Jones PA-C) History of partial hysterectomy Hx of hernia repair Family History Mother Asthma Fibromyalgia Father No problems noted. Son No problems noted. Daughter No problems noted. 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 Review of Systems Const All systems reviewed & are unremarkable except as noted in HPI and below Physical Exam Vital Signs: Last Vital Signs Pulse 99 08/04/25 10:40 BP 117/63 08/04/25 10:40 BMI result Body Mass Index 45.7 Const General: comfortable, no acute distress and alert Orientation/consciousness: patient oriented x3 Resp Effort & Inspection: normal respiratory effort and able to speak in complete sentences GI Other: midline incision, hernia repair site- steri strips removed- superior aspect well healed, centrally small 0.5cm opening and 1cm opening at inferior aspect with some slough; areas gently probed with qtip with evacuation of small amount of serous fluid, no purulence, no surrounding erythema or edema, no fluctuance, nontender Palpation (GI): Soft to palpation, nontender and no guarding Skin Other: as noted above in abdomen General skin exam: no rashes or lesions noted Neuro General: patient oriented x3 and moves all extremities Assessment & Plan Assessment & Plan (1) S/P repair of ventral hernia: Code(s): Z98.890 - Other specified postprocedural states; Z87.19 - Personal history of other diseases of the digestive system Category: Surgical Plan 44 year old female who underwent repair of repair of incarcerated ventral hernia with mesh on 07/06/25 presenting today with drainage from her wound. She had two small areas of separation noted above which were probed with release of serous fluid consistent with seroma. No evidence of infection or hernia recurrence. The openings were gently packed with strip of durafiber and covered with dry fluffs and tape. She was instructed on local wound care of changing durafiber packing every other day and outer dressing of dry fluffs daily and as needed. VNA services were offered however her mom is an RN and states she can do the dressing changes. She is to follow up in 1 week for wound check or sooner if she develops concerns. Coding Level of Care Code Est Pt Level 3 (56803) Diagnoses S/P repair of ventral hernia Z98.890; Z87.19
[2025-08-04 10:40] VITALS: BP 117/63; PULSE 99; BMI 45.7
--- OUTSIDE RECORDS SUMMARY | 2025-08-04 11:52 | XMS_ITS | Clinical Summary ---
Author Organization [address] Address [address] [place] [phone] Phone Care Team Providers Care It Director Name Role Phone Margret Lopez MD Primary [...] ns:Morbid obesity with BMI of 40.0-44.9, adult (CMS/[facility] V24, CMS/[facility] V28) Take 1 tablet (25 mg total) by mouth at bedtime for 28 days. 28 each 07/27/2025 5 Active phentermine 15 mg capsuleIndicati ons:Morbid obesity with BMI of 40.0-44.9, adult (CMS/HCC V24, CMS/[facility] V28) Take 1 capsule (15 mg total) by mouth 1 (one) time each day before breakfast. Max Daily Amount: 15 mg 30 each 07/27/2025 5 Active Active Problems Problem Noted Date Diagnosed Date Grief 10/31/2024 Class 3 severe obesity witho ut serious comorbidity with body mass index (BMI) of 40.0 to 44.9 in adult (CMS/HCC V24, CMS/[facility] V28) 09/14/2020 Low grade squamous intraepit [...] 10:30 AM EDT Consult Bariatric Surgery - [address] [place] [phone] Megan Del Real MD Hyperglycemia (Primary Dx); Morbid obesity with BMI of 40.0-44.9, adult ([facility] V24, [facility] V28) from Last 3 Months Immunizations Name [...] Medical History Date Comments Heartburn Morbid obesity ([facility] V24, [facility] V28) Family History Medical History Relation [...] care for your loved ones. For example, childcare administrator or elderly care for an older adult? [...] Care Team (Late st Contact Info) Description 08/07/2025 8:00 AM EDT Appointment [facility] Ultrasound [address] [place] [phone] 11/06/2025 7:30 AM EST Office Visit Adult Medicine [facility] [address] [place], [place] [phone] Margret Lopez MD [address] [place], [place] 01/16/2026 9:45 AM EDT Office Visit Bariatric Surgery [facility] [address] [facility] [address] [place] [phone] Megan Del Real MD [address] [place] [phone] Health Maintenance Due Date Last Done Comments [...] of 40.0-44.9, adult (CMS/HCC V24, CMS/HCC V28) HEMOGLOBIN A1C Routine 07/27/2025 11:47 AM [...] Thyroid stimulating hormone (07/27/2025 11:47 AM EDT) TSH 2.03 0.40 - 4.00 mcIU/mL LAB CHEMISTRY METHOD 07/27/2025 3:55 PM EDT [facility] Blood Venous blood specimen / Unknown Venipuncture / Unknown 07/27/2025 11:47 AM EDT 07/27/2025 11:47 AM EDT us Megan Del Real MD LAB BLOOD ORDERABLES Final R esult [facility] [address] [place] [address], * Hemoglobin A1c (07/27/2025 11:47 AM EDT) Hemoglobin A1C 6.0 <6.5 % LAB CHEMISTRY METHOD 07/27/2025 9:58 PM EDT [facility] Mean Bld Glu Estim. 126 mg/dL LAB CHEMISTRY METHOD 07/27/2025 9:58 PM EDT [facility] Blood Venous blood specimen / Unknown Venipuncture / Unknown 07/27/2025 11:47 AM EDT 07/27/2025 11:47 AM EDT us Megan Del Real MD LAB BLOOD ORDERABLES Final R esult [facility] [address] [place] [address], [place] [phone] * (ABNORMAL) Hepatic function panel (07/27/2025 11:47 AM EDT) Pathologist [facility] Total Protein 7.2 6.0 - 8.0 g/dL LAB CHEMISTRY METHOD 07/27/2025 2:59 PM EDT [facility] Albumin 3.3 3.2 - 5.0 g/dL LAB CHEMISTRY METHOD 07/27/2025 2:59 PM EDT [facility] Total Bilirubin 1.0 0.0 - 1.4 mg/dL LAB CHEMISTRY METHOD 07/27/2025 2:59 PM EDT [facility] Bilirubin, Direct 0.3 0.0 - 0.3 mg/dL LAB CHEMISTRY METHOD 07/27/2025 2:59 PM EDT [facility] Bilirubin, Indirect 0.7 0.0 - 1.1 mg/dL LAB CHEMISTRY METHOD 07/27/2025 2:59 PM EDT [facility] ALT (SGPT) 80(H) 10 - 60 unit/L LAB CHEMISTRY METHOD 07/27/2025 2:59 PM EDT [facility] Comment:Results verified by repeat testing AST (SGOT) 63(H) 10 - 42 unit/L LAB CHEMISTRY METHOD 07/27/2025 2:59 PM EDT [facility] Comment:Results verified by repeat testing Alkaline Phosphatase 106 42 - 121 unit/L LAB CHEMISTRY METHOD 07/27/2025 2:59 PM EDT [facility] Blood Venous blood specimen / Unknown Venipuncture / Unknown 07/27/2025 11:47 AM EDT 07/27/2025 11:47 AM EDT Megan Del Real MD LAB BLOOD ORDERABLES Final R esult Performing Organization Address City/[facility]/ZIP Co de Phone Number [facility] [address] [place] [address], [place] [phone] * Hepatitis C antibody (10/31/2024 9:03 AM EST) Pathologist [facility] Hepatitis C Antibody Negative Negative LAB CHEMISTRY METHOD 10/31/2024 1:47 PM EST [facility] Blood Venous blood specimen / Unknown Venipuncture / Unknown 10/31/2024 9:03 AM EST 10/31/2024 9:03 AM EST Deanne SYKES LAB BLOOD ORDERABLES Final Resul t Performing Organization Address [facility] de Phone Number [facility] [address] [place] [address], [place] [phone] * HIV 1,2 antibody, p24 antigen with reflex to differentiation (10/31/2024 9:03 AM EST) [facility] HIV Combo AB/AG Negative Negative LAB CHEMISTRY METHOD 10/31/2024 1:47 PM EST [facility] Blood Venous blood specimen / Unknown Venipuncture / Unknown 10/31/2024 9:03 AM EST 10/31/2024 9:03 AM EST Narrative [facility] - 10/31/2024 1:47 PM EST This [...] ORDERABLES Final Resul t Performing Organization Address [facility]/ZIP Co de Phone Number [facility] [address] [place] [address], * Depression Screening (05/31/2024) Pathologist [facility] Depression Screening abstracted Historical Provider HEALTH MAINTENANCE Final Result * Lipid panel (02/03/2024) [facility] LDL/HDL Ratio 3 0 - 4 Triglycerides 78 0 - 150 mg/dL Cholesterol 140 0 - 200 mg/dL HDL 41 >=40 mg/dL LDL Cholesterol 84 0 - 100 mg/dL Blood Venous blood specimen / Unknown Historical Provider LAB BLOOD ORDERABLES Jacquelyn l Result * Cervical Cancer Screening: HPV (07/23/2020) Pathologist [facility] Cervical Cancer Screening: HPV no interpretation , abstracted Historical Provider HEALTH MAINTENANCE Final Result from Last 3 Months or Most Recently Relevant to Health Maintenance Insurance [facility] [employer] [facility] Care Teams It Director Relationship Specialty Start Date End Date Margret Lopez MD [address] [place] [phone] PCP - General Internal Medicine 10/31/24
== END 2025-08-04 10:49 | disposition home or self-care (01) ==
LOC: HO.HGS 10:27
PROVIDERS: PCP Internal Medicine; Visit Provider Physician Assistant Surgical
DX: Z98.890 Other specified postprocedural states (principal); Z87.19 Personal history of other diseases of the digestive system
CPT/HCPCS: 99213

== ENCOUNTER → 2025-08-04 10:27 | Outpatient (BNVA) | payer OTHER, SELFPAY | PROVIDERS: PCP Internal Medicine; Visit Provider Physician Assistant Surgical | DX: Z48.815 Encounter for surgical aftercare following surgery on the digestive system (principal); Z87.19 Personal history of other diseases of the digestive system; Z98.890 Other specified postprocedural states | CPT/HCPCS: 99212 ==

== ENCOUNTER 2025-08-11 10:43 | Outpatient (AMB) | payer OTHER, SELFPAY ==
--- OUTSIDE RECORDS SUMMARY | 2025-08-07 08:00 | XMS_ITS | Encounter Summary ---
Author Organization [facility] Address [address] [place] [address] Care Team Providers Care Bobbin Inspector Name Role Phone Margret Lopez MD Primary Care Prov ider Reason for Referral * Imaging (Routine) - Authorized Specialty Diagnoses / Procedures Referred By Gale merrill Referred To Contact Radiology Diagnoses Abnormal transaminases Procedures US Abdomen Limited Megan Del Real MD [address] [place] [address] Phone: tel: fax: [facility] Referral ID Status Reason Start Date Expiration Date V isits Requested Visits Authorized [id number] Authorized 07/28/2025 07/28/2026 1 1 Reason for Visit * Imaging (Routine) - Authorized Specialty Diagnoses / Procedures Referred By Gale merrill Referred To Contact Radiology Diagnoses Abnormal transaminases Procedures US Abdomen Limited Megan Del Real MD [address] [place] [address] Phone: tel: fax: [facility] Referral ID Status Reason Start Date Expiration Date V isits Requested Visits Authorized [id number] Authorized 07/28/2025 07/28/2026 1 1 Encounter Details Date Type Department Care Team (Latest Contact Info) Description 08/07/2025 8:00 AM EDT - 08/07/2025 11:59 PM EDT Hospital Encounter [facility] Ultrasound [address] [place] [address] Abnormal transaminases Discharge Disposition: Home or Self Care Social History Tobacco Use Types Packs/Day Years [...] for your loved ones. For example, child support case officer or elderly care for an older adult? [...] Date Recorded What is your living situation? Unrecognized valu e 10/31/2024 Comments No Sex and Gender Information Value Date Recorded Sex Assigned at Not on file Legal Sex Female 9:56 PM EST Gender Identity Not on file Sexual Orientation Not on file documented as of this encounter Medications at Time of Discharge omeprazole OTC (PriLOSEC OTC) 20 mg EC tablet Take 1 Tab by mouth daily. 05/17/2019 phentermine 15 mg capsuleIndication s:Morbid obesity with BMI of 40.0-44.9, adult ([facility] V24, [facility] V28) Take 1 capsule (15 mg total) by mouth 1 (one) time each day before breakfast. Max Daily Amount: 15 mg 30 each 07/27/2025 10/25/2025 topiramate (TOPAMAX) 25 mg tabletIndications :Morbid obesity with BMI of 40.0-44.9, adult ([facility] V24, [facility] V28) Take 1 tablet (25 mg total) by mouth at bedtime for 28 days. 28 each 07/27/2025 08/24/2025 documented as of this encounter Discharge Disposition Disposition Code Departure Means Destination Home or Self Care documented in this encounter Plan of Treatment Upcoming Encounters Date Type Department Care Team (Late st Contact Info) Description 11/06/2025 7:30 AM EST Office Visit Adult Medicine [address] [phone] Margret Lopez MD [address] [place] [address] 01/16/2026 9:45 AM EDT Office Visit Bariatric Surgery - [address] [place] [address] Megan Del Real MD [address] [place] [phone] documented as of this encounter Procedures Procedure Name Priority Date/Time Associated Diagnosis Comments US ABDOMEN LIMITED Routine 08/07/2025 8: 34 AM EDT Abnormal transaminases documented in this encounter Results * US Abdomen Limited (08/07/2025 8:34 AM EDT) Anatomical Region Laterality Modality Body Ultrasound 08/09/2025 11:0 1 AM EDT Impressions 08/09/2025 11:06 AM EDT Hepatomegaly. Coarsened hepatic echotexture consistent with fatty infiltration and/or hepatocellular disease. The extra-hepatic duct was unable to be visualized; there is no intrahepatic biliary dilatation. A 3 mm cholesterol polyp is present near the gallbladder fundus. The gallbladder is otherwise of normal appearance. The spleen is normal in size and appearance. The pancreas was unable to be visualized. Code 25998 G9551 -------- FINAL REPORT -------- Dictated By: Dallas Mccoy Dictated Date: 08/09/2025 11:01 ET Assigned Physician: Dallas Mccoy Reviewed and Electronically Signed By: Dallas Mccoy Signed Date: 08/09/2025 11:06 ET Workstation ID: [id number] Transcribed By: Self Edit Transcribed Date: 08/09/2025 11:01 ET Narrative 08/09/2025 11:06 AM EDT HISTORY: The patient is a 44-year-old female with abnormal liver function enzyme levels. FINDINGS: Real-time ultrasonography of the abdominal right upper quadrant is performed. The pancreas is completely obscured by overlying bowel and therefore cannot be evaluated. The liver is enlarged with a span of 19.8 cm. There is diffuse coarsening of the hepatic echotexture consistent with fatty infiltration and/or hepatocellular disease. No hepatic mass is seen. The portal vein is patent with hepatopetal flow. There is no intrahepatic biliary dilatation. The extra-hepatic duct was unable to be visualized. The gallbladder demonstrates a 3 mm diameter nonmobile echogenic focus arising from the anterior wall adjacent to the fundus, consistent with a polyp. The gallbladder is otherwise of normal appearance without calculus, wall thickening, or pericholecystic fluid. There is no sonographic Rajan's sign per technologist notes. Survey images of the right kidney demonstrate no hydronephrosis or calculus. The right kidney measures 11.9 cm in length. The spleen is normal in size and appearance, measuring 7.7 x 4.1 x 8.5 cm. No ascites is seen. Procedure Note Dallas Mccoy MD - 08/09/2025 HISTORY: The patient is a 44-year-old female with abnormal liver functionenzyme levels. FINDINGS: Real-time ultrasonography of the abdominal right upper quadrantis performed. The pancreas is completely obscured by overlying bowel andtherefore cannot be evaluated. The liver is enlarged with a span of 19.8cm. There is diffuse coarsening of the hepatic echotexture consistent withfatty infiltration and/or hepatocellular disease. No hepatic mass is seen.The portal vein is patent with hepatopetal flow. There is no intrahepaticbiliary dilatation. The extra-hepatic duct was unable to be visualized.The gallbladder demonstrates a 3 mm diameter nonmobile echogenic focusarising from the anterior wall adjacent to the fundus, consistent with apolyp. The gallbladder is otherwise of normal appearance without calculus,wall thickening, or pericholecystic fluid. There is no sonographicMurphy's sign per technologist notes. Survey images of the right kidneydemonstrate no hydronephrosis or calculus. The right kidney measures 11.9cm in length. The spleen is normal in size and appearance, measuring 7.7 x 4.1 x 8.5 cm. No ascites is seen. IMPRESSION: Hepatomegaly. Coarsened hepatic echotexture consistent with fattyinfiltration and/or hepatocellular disease. The extra-hepatic duct wasunable to be visualized; there is no intrahepatic biliary dilatation. A 3mm cholesterol polyp is present near the gallbladder fundus. Thegallbladder is otherwise of normal appearance. The spleen is normal insize and appearance. The pancreas was unable to be visualized. Code 11426 G9551 -------- FINAL REPORT -------- Dictated By: Dallas Mccoy Dictated Date: 08/09/2025 11:01 ET Assigned Physician: Dallas Mccoy Reviewed and Electronically Signed By: Dallas Mccoy Signed Date: 08/09/2025 11:06 ET Workstation ID: [id number] Transcribed By: Self Edit Transcribed Date: 08/09/2025 11:01 ET us Megan Del Real MD IMG US PROCEDURES Final Resu lt documented in this encounter Visit Diagnoses Diagnosis Abnormal transaminases documented in this encounter Care Teams Bobbin Inspector Relationship Specialty Start Date End Date Margret Lopez MD [address] [place] [phone] PCP - General Internal Medicine 10/31/24 documented as of this encounter
--- NOTE | 2025-08-11 10:46 | A.OFFVIS_ITS ---
Vital Signs 08/11/25 10:51 Height 5 ft 6 in Weight 281 lb BMI 45.3 BP 126/72 Blood Pressure Location Rt radial Position Sitting Pulse 86 Intake Visit Reasons: abdomen wound check Intake Note: Patient here to for 1wk follow up abdomen wound. Reports improvement w/ Durafiber packing. Patient c/o: reports improvement since last office visit. Site healing well. Denies pain, oozing. HX: incarcerated ventral hernia with mesh on 07/06/25 House Furnishings Supervisor Required: No Accompanied by: Self / Same As Patient Allergies No Known Allergies Allergy (Verified 08/11/25 10:50) HPI HPI abdomen wound check: Details: 44-year-old female who presents today for a wound check. She had a repair of an incarcerated ventral hernia on 07/06/[address] Allen. She tolerated the procedure well and was doing well but developed increasing drainage from the wound and was seen 08/04/25 where she was found to have a seroma. She had two small areas of separation of the incision which were packed with durafiber. She reports the wound is overall improved with less pain and she does not have anymore drainage. Her mom has not packed it for the past two days and has just applied an outer dressing. [facility] Medical History Hernia No known health problems Surgical History (Updated 08/04/25 @ 11:02 by Marilee Jones PA-C) History of partial hysterectomy Hx of hernia repair Family History Mother Asthma Fibromyalgia Father No problems noted. Son No problems noted. Daughter No problems noted. 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 Review of Systems Const All systems reviewed & are unremarkable except as noted in HPI and below Physical Exam Vital Signs: Last Vital Signs Pulse 86 08/11/25 10:51 BP 126/72 08/11/25 10:51 BMI result Body Mass Index 45.3 Const General: comfortable, no acute distress and alert Orientation/consciousness: patient oriented x3 Resp Effort & Inspection: normal respiratory effort GI Other: corpulent abdomen abd soft, non distended, nontender midline incision- steri strips removed- superior aspect remains well healed, previous open wound centrally and inferiorly (2mm, 4mm, respectively) significantly decreased in size and very superficial and unable to be packed, no purulent drainage, no surrounding erythema or edema, no fluctuance Skin General skin exam: no rashes or lesions noted Neuro General: patient oriented x3 and moves all extremities Assessment & Plan Assessment & Plan (1) Hx of hernia repair: Comment: X4 [facility] Code(s): Z98.890 - Other specified postprocedural states; Z87.19 - Personal history of other diseases of the digestive system Category: Surgical Plan 44 year old female who underwent repair of repair of incarcerated ventral hernia with mesh on 07/06/25 presenting for a wound check today. At her previous visit she had two small open wounds centrally and inferiorly which are now significantly smaller in size and superficial and at this point are unable to be packed. No evidence of wound infection. She was instructed to continue to cover with dry dressing until the wounds completely heal. She is to return for worsening drainage, redness of the wound, fevers. She understands and agrees with plan. She can follow up as needed. Coding Level of Care Code Est Pt Level 3 (03252) Diagnoses Hx of hernia repair Z98.890; Z87.19
[2025-08-11 10:51] VITALS: BP 126/72; PULSE 86; BMI 45.3
--- OUTSIDE RECORDS SUMMARY | 2025-08-11 11:44 | XMS_ITS | Encounter Summary ---
Author Organization [facility] Address [address] [place] [address] Care Team Providers Care Corporate Recruiter Name Role Phone Margret Lopez MD Primary Care Prov ider Encounter Details Date Type Department Care Team ([facility] st Contact Info) Description 08/09/2025 Results Follow-Up Bariatric Surgery - [address] [place] [address] Megan Del Real MD [address] [place] [phone] Social History Tobacco Use Types Packs/Day Years [...] for your loved ones. For example, children's book author or elderly care for an older adult? [...] on file documented as of this encounter Plan of Treatment Upcoming Encounters Date Type Department Care Team (Late st Contact Info) Description 11/06/2025 7:30 AM EST Office Visit Adult Medicine [facility] [address] [place] [address] Margret Lopez MD [address] [place], [place] 01/16/2026 9:45 AM EDT Office Visit Bariatric Surgery [address] [phone] Megan Del Real MD [address] [place] [phone] documented as of this encounter Visit Diagnoses Not on filedocumented in this encounter Care Teams Corporate Recruiter Relationship Specialty Start Date End Date Margret Lopez MD [address] [place] [phone] PCP - General Internal Medicine 10/31/24 documented as of this encounter
--- OUTSIDE RECORDS SUMMARY | 2025-08-11 11:44 | XMS_ITS | Clinical Summary ---
Author Organization [address] Address [address] [place] [phone] Phone Care Team Providers Care Electrical Engineering Intern Name Role Phone Margret Lopez MD Primary [...] ns:Morbid obesity with BMI of 40.0-44.9, adult ([facility] V24, [facility] V28) Take 1 tablet (25 mg total) by mouth at bedtime for 28 days. 28 each 07/27/2025 5 Active phentermine 15 mg capsuleIndicati ons:Morbid obesity with BMI of 40.0-44.9, adult (CMS/HCC V24, [facility] V28) Take 1 capsule (15 mg total) by mouth 1 (one) time each day before breakfast. Max Daily Amount: 15 mg 30 each 07/27/2025 5 Active Active Problems Problem Noted Date Diagnosed Date Grief 10/31/2024 Class 3 severe obesity witho ut serious comorbidity with body mass index (BMI) of 40.0 to 44.9 in adult (CMS/HCC V24, [facility] V28) 09/14/2020 Low grade squamous intraepit h [...] Encounters Date Type Department Care Team Description 08/09/2025 Results Follow-Up Bariatric Surgery [address] [phone] Megan Del Real MD 08/07/2025 8:00 AM EDT - 08/07/2025 11:59 PM EDT Hospital Encounter [facility] Ultrasound [address] [place] [phone] Abnormal transaminases Discharge Disposition: Home or Self Care 07/27/2025 10:30 AM EDT Consult Bariatric Surgery [facility] [address] [phone] Megan Del Real MD Hyperglycemia (Primary Dx); Morbid obesity with BMI of 40.0-44.9, adult ([facility] V24, [facility] V28) from Last 3 Months Immunizations Immunization Administration Dates Next Due MMR, measles mumps and rubel la Live (Priorix; M-M-R II) 12mo and older 06/29/2019 Pfizer SARS-CoV-2 COVID-19, mRNA, LNP-S, preservative free 01/13/2022,12/23/2021 Tdap Tetanus diptheria acell ular pertussis (Boostrix; Adacel) 7yo and older 05/03/2018 Surgical History Surgery Date Site/Laterality Comments HERNIA REPAIR 2007, 2008, 2009, 2012 ventral ROBOTIC ASSISTED HYSTERECTOMY 06/22/2024 PERCUTANEOUS NEPHROLITHOTRIPSY Medical History Medical History Date Comments Heartburn Morbid obesity ([facility] V24, [facility] V28) Family History Medical History Relation Name [...] 7:30 AM EST Office Visit Adult Medicine [address] [phone] Margret Lopez MD [address] [place], [place] 01/16/2026 9:45 AM EDT Office Visit Bariatric Surgery [address] [phone] Megan Del Real MD [address] [place] [phone] Health Maintenance Due Date Last Done Comments Breast Cancer Screening 1980 Hepatitis B Vaccines (1 of 3 - 19+ 3-dose series) 1999 HPV Vaccines (1 - 3-dose SCD M series) 2007 Depression Screening 11/09/2024 05/31/2024 Influenza Vaccine (#1) [...] 08/07/2025 8: 34 AM EDT Abnormal transaminases HEPATIC FUNCTION PANEL Routine 11:47 AM EDT [...] Recently Relevant to Health Maintenance Results * US Abdomen Limited (08/07/2025 8:34 [...] pancreas was unable to be visualized. Code 27988 G9551 -------- FINAL REPORT -------- Dictated By: Dallas Mccoy Dictated Date: 08/09/2025 11:01 ET Assigned Physician: Dallas Mccoy Reviewed and Electronically Signed By: Dallas Mccoy Signed Date: 08/09/2025 11:06 ET Workstation ID: [id number] Transcribed By: Self Edit Transcribed Date: 08/09/2025 [...] pancreas was unable to be visualized. Code 40572 G9551 -------- FINAL REPORT -------- Dictated By: Dallas Mccoy Dictated Date: 08/09/2025 11:01 ET Assigned Physician: Dallas Mccoy Reviewed and Electronically Signed By: Dallas Mccoy Signed Date: 08/09/2025 11:06 ET Workstation ID: [id number] Transcribed By: Self Edit Transcribed Date: 08/09/2025 11:01 ET us Megan Del Real MD IMG US PROCEDURES Final Resu lt * Thyroid stimulating hormone (07/27/2025 11:47 AM EDT) [facility] TSH 2.03 0.40 - 4.00 mcIU/mL LAB CHEMISTRY METHOD 07/27/2025 3:55 PM EDT [facility] Blood Venous blood specimen / Unknown Venipuncture / Unknown 07/27/2025 11:47 AM EDT 07/27/2025 11:47 AM EDT us Megan Del Real MD LAB BLOOD ORDERABLES Final R esult [facility] [address] [place] [address], [place] [phone] * Hemoglobin A1c (07/27/2025 11:47 AM EDT) [facility] Hemoglobin A1C 6.0 <6.5 % LAB CHEMISTRY METHOD 07/27/2025 9:58 PM EDT [facility] Mean Bld Glu Estim. 126 mg/dL LAB CHEMISTRY METHOD 07/27/2025 9:58 PM EDT [facility] Blood Venous blood specimen / Unknown Venipuncture / Unknown 07/27/2025 11:47 AM EDT 07/27/2025 11:47 AM EDT us Megan Del Real MD LAB BLOOD ORDERABLES Final R esult [facility] [address] [place] [address], [place] [phone] * (ABNORMAL) Hepatic function panel (07/27/2025 11:47 AM EDT) [facility] Total Protein 7.2 6.0 - 8.0 g/dL LAB CHEMISTRY METHOD 07/27/2025 2:59 PM EDT [facility] Albumin 3.3 3.2 - 5.0 g/dL LAB CHEMISTRY METHOD 07/27/2025 2:59 PM EDT [facility] Total Bilirubin 1.0 0.0 - 1.4 mg/dL LAB CHEMISTRY METHOD 07/27/2025 2:59 PM EDT [facility] Bilirubin, Direct 0.3 0.0 - 0.3 mg/dL LAB CHEMISTRY METHOD 07/27/2025 2:59 PM EDT [facility] Bilirubin, Indirect 0.7 0.0 - 1.1 mg/dL LAB CHEMISTRY METHOD 07/27/2025 2:59 PM EDT [facility] ALT (SGPT) 80(H) 10 - 60 unit/L LAB CHEMISTRY METHOD 07/27/2025 2:59 PM EDT [facility] Comment:Results verified by repeat testing AST (SGOT) 63(H) 10 - 42 unit/L LAB CHEMISTRY METHOD 07/27/2025 2:59 PM EDT [facility] Comment:Results verified by repeat testing Alkaline Phosphatase 106 42 - 121 unit/L LAB CHEMISTRY METHOD 07/27/2025 2:59 PM EDT [facility] Blood Venous blood specimen / Unknown Venipuncture / Unknown 07/27/2025 11:47 AM EDT 07/27/2025 11:47 AM EDT Megan Del Real MD LAB BLOOD ORDERABLES Final R esult Performing Organization Address [facility]/ZIP Co de Phone Number [facility] [address] [place] [address], [place] [phone] * Hepatitis C antibody (10/31/2024 9:03 AM EST) Hepatitis C Antibody Negative Negative LAB CHEMISTRY METHOD 10/31/2024 1:47 PM EST [facility] Blood Venous blood specimen / Unknown Venipuncture / Unknown 10/31/2024 9:03 AM EST 10/31/2024 9:03 AM EST Deanne SYKES LAB BLOOD ORDERABLES Final Resul t Performing Organization Address [facility] Co de Phone Number [facility] [address] [place] [address], [place] [phone] * HIV 1,2 antibody, p24 antigen with reflex to differentiation (10/31/2024 9:03 AM EST) HIV Combo AB/AG Negative Negative LAB CHEMISTRY METHOD 10/31/2024 1:47 PM EST [facility] Blood Venous blood specimen / Unknown Venipuncture / Unknown 10/31/2024 9:03 AM EST 10/31/2024 9:03 AM EST Narrative [facility] - 10/31/2024 1:47 PM [...] SYKES LAB BLOOD ORDERABLES Final Resul t [facility] [address] [place] [address], * Depression Screening (05/31/2024) Pathologist [facility] Depression Screening abstracted Historical Provider HEALTH MAINTENANCE Final Result * Lipid panel (02/03/2024) [facility] LDL/HDL Ratio 3 0 - 4 Triglycerides 78 0 - 150 mg/dL Cholesterol 140 0 - 200 mg/dL HDL 41 >=40 mg/dL LDL Cholesterol 84 0 - 100 mg/dL Blood Venous blood specimen / Unknown Historical Provider LAB BLOOD ORDERABLES Jacquelyn l Result * Cervical Cancer Screening: HPV (07/23/2020) [facility] Cervical Cancer Screening: HPV no interpretation , abstracted Historical Provider HEALTH MAINTENANCE Final Result from Last 3 Months or Most Recently Relevant to Health Maintenance Insurance [facility] [place] [address] Care Teams Electrical Engineering Intern Relationship Specialty Start Date End Date Margret Lopez MD [address] [place] [phone] PCP - General Internal Medicine 10/31/24
== END 2025-08-11 11:11 | disposition home or self-care (01) ==
LOC: HO.HGS 10:43
PROVIDERS: PCP Internal Medicine; Visit Provider Physician Assistant Surgical
DX: Z98.890 Other specified postprocedural states (principal); Z87.19 Personal history of other diseases of the digestive system
CPT/HCPCS: 99213

== ENCOUNTER → 2025-08-11 10:43 | Outpatient (BNVA) | payer OTHER, SELFPAY | PROVIDERS: PCP Internal Medicine; Visit Provider Physician Assistant Surgical | DX: Z98.890 Other specified postprocedural states (principal); Z87.19 Personal history of other diseases of the digestive system | CPT/HCPCS: 99212 ==